=== PATIENT | male | born 1960 | race Caucasian/White ===

== ENCOUNTER 2021-04-13 12:43 | Inpatient (IN) | payer BC ==
[2021-04-13] MEDS ORDERED: methylPREDNISolone SOD SUCCI 125 MG/2 ML VIAL IV STA (12:49)
[2021-04-13] MEDS ORDERED: IPRATROPIUM-ALBUTEROL 3 ML NEB INHALATION STA (12:49)
--- NOTE | 2021-04-13 12:58 | ED ---
SOB HPI - General Stated Complaint: DAHLIA Time Seen by Provider: 04/13/21 12:46 Source: patient, RN notes reviewed - History of Present Illness Initial Comments: Is a 60-year-old male who is oxygen dependent who has a history of COPD and pulmonary fibrosis who states she's been having difficulty breathing for the past one half weeks getting progressively worse with exertional dyspnea and chest discomfort when he tries to take a deep breath. He did present to the emergency department by private vehicle. He has a cough with minimal phlegm production he denies any overt fevers chills or sweats no relief with his home medication. No other current complaints or modifying factors MD Complaint: shortness of breath - Related Data Home Medications Medication Instructions Recorded Confirmed Albuterol Sulfate [Ventolin HFA] 2 puff INHALATION RT-Q4H PRN 04/13/21 04/13/21 Benzonatate [Benzonatate Perle] 200 mg PO TID 04/13/21 04/13/21 Budesonide/Formoterol Fumarate 2 puff INHALATION RT-BID 04/13/21 04/13/21 [Symbicort 160-4.5 Mcg Inhaler] Ipratropium-Albuterol Nebulize 3 ml INHALATION RT-QID 04/13/21 04/13/21 [Duoneb 0.5 mg-3 mg/3 ml Soln] Pirfenidone [Esbriet] 801 mg PO BID 04/13/21 04/13/21 Promethaz-Cod 6.25-10 mg/5 ml 5 ml PO Q6H PRN 04/13/21 04/13/21 [Phenergan with Codeine] methylPREDNISolone [Medrol Dose See Taper PO DIRECTED 04/13/21 04/13/21 Pack] Allergies Allergy/AdvReac Type Severity Reaction Status Date / Time No Known Allergies Allergy Verified 04/13/21 13:48 Review of Systems ROS Statement: Those systems with pertinent positive or pertinent negative responses have been documented in the HPI. ROS Other: All systems not noted in ROS Statement are negative. General Exam - General Exam Comments Initial Comments: This is a well-developed well-nourished awake alert oriented times female in obvious respiratory distress General appearance: alert, anxious, in distress Head exam: Present: atraumatic, normocephalic, normal inspection Eye exam: Present: normal appearance, PERRL, EOMI. Absent: scleral icterus, conjunctival injection, periorbital swelling ENT exam: Present: normal exam, mucous membranes moist Neck exam: Present: normal inspection. Absent: tenderness, meningismus, lymphadenopathy Respiratory exam: Present: respiratory distress, wheezes, accessory muscle use, decreased breath sounds. Absent: rales, rhonchi, stridor Cardiovascular Exam: Present: normal rhythm, tachycardia, normal heart sounds. Absent: systolic murmur, diastolic murmur, rubs, gallop, clicks GI/Abdominal exam: Present: soft, normal bowel sounds. Absent: distended, tenderness, guarding, rebound, rigid External exam: Present: normal external exam Extremities exam: Present: normal inspection, full ROM, normal capillary refill. Absent: tenderness, pedal edema, joint swelling, calf tenderness Back exam: Present: normal inspection Neurological exam: Present: alert, oriented X3, CN II-XII intact Psychiatric exam: Present: anxious Skin exam: Present: warm, dry, intact, normal color. Absent: rash Course Vital Signs 04/13/21 04/13/21 04/13/21 12:49 12:50 12:59 Temperature 97.9 F Pulse Rate 120 H 90 Respiratory 36 H 36 H Rate Blood Pressure 126/88 O2 Sat by Pulse 74 L Oximetry 04/13/21 04/13/21 13:19 14:48 Temperature Pulse Rate 98 88 Respiratory 18 Rate Blood Pressure 115/83 O2 Sat by Pulse 96 Oximetry - Reevaluation(s) Reevaluation #1: 04/13/21 14:59 Reevaluation patient after initial treatment he is feeling improved BiPAP has helped tremendously. Medical Decision Making - Lab Data Result diagrams: 04/13/21 13:07 04/13/21 13:07 Lab Results 04/13/21 04/13/21 04/13/21 Range/Units 13:07 13:07 13:07 WBC 14.1 H (3.8-10.6) k/uL RBC 6.01 H (4.30-5.90) m/uL Hgb 19.5 H* (13.0-17.5) gm/dL Hct 56.9 H (39.0-53.0) % MCV 94.7 (80.0-100.0) fL MCH 32.4 (25.0-35.0) pg MCHC 34.2 (31.0-37.0) g/dL RDW 14.3 (11.5-15.5) % Plt Count 161 (150-450) k/uL MPV 8.5 Neutrophils % 75 % Lymphocytes % 15 % Monocytes % 6 % Eosinophils % 2 % Basophils % 1 % Neutrophils # 10.5 H (1.3-7.7) k/uL Lymphocytes # 2.1 (1.0-4.8) k/uL Monocytes # 0.9 (0-1.0) k/uL Eosinophils # 0.3 (0-0.7) k/uL Basophils # 0.1 (0-0.2) k/uL Sodium 138 (137-145) mmol/L Potassium 4.2 (3.5-5.1) mmol/L Chloride 105 (98-107) mmol/L Carbon Dioxide 18 L (22-30) mmol/L Anion Gap 15 mmol/L BUN 13 (9-20) mg/dL Creatinine 0.74 (0.66-1.25) mg/dL Est GFR (CKD-EPI)AfAm >90 (>60 ml/min/1.73 sqM) Est GFR (CKD-EPI)NonAf >90 (>60 ml/min/1.73 sqM) Glucose 192 H (74-99) mg/dL Plasma Lactic Acid Octavio 2.7 H* (0.7-2.0) mmol/L Calcium 9.2 (8.4-10.2) mg/dL Magnesium 2.1 (1.6-2.3) mg/dL Total Bilirubin 0.9 (0.2-1.3) mg/dL AST 37 (17-59) U/L ALT 27 (4-49) U/L Alkaline Phosphatase 104 (38-126) U/L Creatine Kinase 67 (55-170) U/L Troponin I (0.000-0.034) ng/mL NT-Pro-B Natriuret Pep pg/mL Total Protein 7.4 (6.3-8.2) g/dL Albumin 4.1 (3.5-5.0) g/dL 04/13/21 04/13/21 Range/Units 13:07 13:07 WBC (3.8-10.6) k/uL RBC (4.30-5.90) m/uL Hgb (13.0-17.5) gm/dL Hct (39.0-53.0) % MCV (80.0-100.0) fL MCH (25.0-35.0) pg MCHC (31.0-37.0) g/dL RDW (11.5-15.5) % Plt Count (150-450) k/uL MPV Neutrophils % % Lymphocytes % % Monocytes % % Eosinophils % % Basophils % % Neutrophils # (1.3-7.7) k/uL Lymphocytes # (1.0-4.8) k/uL Monocytes # (0-1.0) k/uL Eosinophils # (0-0.7) k/uL Basophils # (0-0.2) k/uL Sodium (137-145) mmol/L Potassium (3.5-5.1) mmol/L Chloride (98-107) mmol/L Carbon Dioxide (22-30) mmol/L Anion Gap mmol/L BUN (9-20) mg/dL Creatinine (0.66-1.25) mg/dL Est GFR (CKD-EPI)AfAm (>60 ml/min/1.73 sqM) Est GFR (CKD-EPI)NonAf (>60 ml/min/1.73 sqM) Glucose (74-99) mg/dL Plasma Lactic Acid Octavio (0.7-2.0) mmol/L Calcium (8.4-10.2) mg/dL Magnesium (1.6-2.3) mg/dL Total Bilirubin (0.2-1.3) mg/dL AST (17-59) U/L ALT (4-49) U/L Alkaline Phosphatase (38-126) U/L Creatine Kinase (55-170) U/L Troponin I 0.029 (0.000-0.034) ng/mL NT-Pro-B Natriuret Pep 3790 pg/mL Total Protein (6.3-8.2) g/dL Albumin (3.5-5.0) g/dL - EKG Data -: EKG Interpreted by Me EKG shows normal: sinus rhythm EKG Comments: Sinus rhythm of 89. Interval 1:30 QRS duration 88 QT since QTC 360/469 T-wave them straight nonspecific configuration prolonged QT interval. Critical Care Time Critical Care Time: Yes Total Critical Care Time: 35 Critical Care Time: Critical care time includes initial presentation with history physical labs x- rays multiple reevaluation of the patient to responsive therapy discuss with the patient family regarding findings discussed with Dr. Hayes admission orders and documentation of the above Disposition Clinical Impression: Acute exacerbation of chronic obstructive pulmonary disease, Acute respiratory distress syndrome in adult, Dehydration, Congestive heart failure Disposition: ADMITTED IP TO THIS [facility] Condition: Fair Referrals: Manjeet Frost DO [Primary Care Provider] - 1-2 days
[2021-04-13] MEDS: SODIUM CHLORIDE 0.9% 1,000 ML IV STA ×2 (13:08→17:53)
[2021-04-13] MEDS ORDERED: LORazepam 2 MG/ML INJ IV STA (13:08)
--- NOTE | 2021-04-13 13:23 | XR ---
EXAMINATION TYPE: XR chest 1V DATE OF EXAM: 04/13/2021 COMPARISON: NONE HISTORY: 60 year-old male shortness of breath, difficulty breathing TECHNIQUE: Single frontal view of the chest is obtained. FINDINGS: Loss of the subacromial space on the right. Heart borderline enlarged. Possible rounded retrocardiac lucency. Diffuse coarse interstitial opacities, more confluent along the periphery of the mid and low er lungs. No sizable effusion on the frontal view. IMPRESSION: 1. Cardiomegaly with diffuse interstitial opacities, more confluent in the periphery of the mid and lower lungs. Chronicity is unclear. Consider interstitial pulmonary edema, atypical pneumonias, and/o r pulmonary fibrosis. 2. Possible moderate-sized hiatal hernia.
[2021-04-13 13:26] LABS: Basophils # (A) 0.1 k/uL (0-0.2); Basophils % (A) 1 %; Eosinophils # (A) 0.3 k/uL (0-0.7); Eosinophils % (A) 2 %; Lymphocytes # (A) 2.1 k/uL (1.0-4.8); Lymphocytes % (A) 15 %; MCH 32.4 pg (25.0-35.0); MCHC 34.2 g/dL (31.0-37.0); MCV 94.7 fL (80.0-100.0); Mean Platelet Volume 8.5; Monocytes # (A) 0.9 k/uL (0-1.0); Monocytes % (A) 6 %; Neutrophils # (A) 10.5 k/uL (1.3-7.7); Neutrophils % (A) 75 %; Platelet Count 161 k/uL (150-450); RBC 6.01 m/uL (4.30-5.90); RDW 14.3 % (11.5-15.5); WBC 14.1 k/uL (3.8-10.6)
[2021-04-13 13:49] LABS: HCT 56.9 % (39.0-53.0)
[2021-04-13 13:51] LABS: ALT 27 U/L (4-49); AST 37 U/L (17-59); African American GFR (CKD) >90 (>60 ml/min/1.73 sqM); Albumin 4.1 g/dL (3.5-5.0); Alkaline Phosphatase 104 U/L (38-126); Anion Gap 15 mmol/L; Blood Urea Nitrogen 13 mg/dL (9-20); Calcium 9.2 mg/dL (8.4-10.2); Carbon Dioxide 18 mmol/L (22-30); Chloride 105 mmol/L (98-107); Creatine Kinase 67 U/L (55-170); Glucose 192 mg/dL (74-99); Magnesium 2.1 mg/dL (1.6-2.3); Non-African American GFR(CKD) >90 (>60 ml/min/1.73 sqM); Potassium 4.2 mmol/L (3.5-5.1); Sodium 138 mmol/L (137-145); Total Bilirubin 0.9 mg/dL (0.2-1.3); Total Protein 7.4 g/dL (6.3-8.2)
[2021-04-13 13:52] LABS: HGB 19.5 gm/dL (13.0-17.5)
[2021-04-13] MEDS ORDERED: SODIUM CHLORIDE 0.9% 1,000 ML IV STA (13:52)
[2021-04-13] MEDS ORDERED: PROMETHAZ COD PO PRN (15:04)
[2021-04-13] MEDS ORDERED: FUROSEMIDE 10 MG/ML 4 ML VIAL IV STA ×2 (15:05→20:36)
[2021-04-13] MEDS: PANTOPRAZOLE 40 MG/10 ML VIAL IVP SCH (16:00)
[2021-04-13] MEDS ORDERED: HEPARIN SODIUM,PORCINE/PF 5,000 UNIT/0.5 ML SYRINGE SQ SCH (16:00)
[2021-04-13] MEDS: LEVOFLOXACIN 750MG-D5W PMX 750 MG in DEXTROSE/WATER 1 150ML.BAG IVPB SCH (16:11)
[2021-04-13] MEDS: BENZONATATE 100 MG CAP PO SCH ×2 (16:12→20:48)
--- NOTE | 2021-04-13 16:27 | P.CNPUL ---
History of Present Illness Consult date: 04/13/21 Reason for consult: COPD, pulmonary fibrosis History of present illness: 61-year-old male patient known history of COPD and advanced pulmonary fibrosis, oxygen dependent. The patient has been followed up in our office with and he has been maintained on Esbriet to 67 mg 2 tablets 3 times a day. During an earlier evaluation evaluation on office wasn't back in December 2020. At that time, his pulse ox on room air was at 77%. He was quickly placed on oxygen. Has been using his oxygen 24 7 since. He was educated to do so. He is on oxygen 2 L per minute nasal cannula. He has been also maintained on a combination of Symbicort and Ventolin rescue inhaler on an as-needed basis. He has completed his COVID vaccination. Based on the previous port function test that was done and 01/30/2019, the patient has a FVC of 80%. His diffusion capacity was a 40% and no follow-up with function tests was done since. His most recent CAT scan of the chest was done and [facility] he showed moderate centrilobular and paraseptal emphysema and bronchiectasis in addition to interstitial pulmonary fibrosis there was moderate to severe in nature and this was done on 05/26/2020. He has other comorbidities including chronic pain and sciatica. The patient came into the emergency department this afternoon because of worsening shortness of breath and exertional dyspnea. He was having chest discomfort when he was trying to take a deep breath. He had a cough with minimal amount of sputum production. Denies having any fever or chills. He was taking all of his home medications. No swelling in lower extremities. In the emergency, he was found that her white cell count of 14.1, hemoglobin was 19.5 consistent with chronic hypoxemia and secondary erythrocytosis. His serum bicarb is at 18, the electrodes are all within normal limits, proBNP level was 3790, liver function tests were all essentially within normal limits, lactic acid level was at 0.7, chest x-ray was consistent with interstitial fibrosis, diffuse with lower lobe and peripheral predominance. Pulse ox on room air was 74%. The patient immediately was placed on a BiPAP. He was tachycardic at time of admission with a heart rate of 120 and a respiration of 36, much improved while on the BiPAP. He was hospitalized accordingly. Review of Systems Constitutional: Reports fatigue, Reports lethargy, Reports weakness Eyes: denies as per HPI, denies blurred vision, denies bulging eye, denies decr eased vision, denies diplopia, denies discharge, denies dry eye, denies irritation, denies itching, denies pain, denies photophobia, denies loss of peripheral vision, denies loss of vision, denies tunnel vision/blind spots Ears: deny: decreased hearing, ear discharge, earache, tinnitus Ears, nose, mouth and throat: Reports as per HPI Breasts: absent: as per HPI Cardiovascular: Reports decreased exercise tolerance, Reports dyspnea on exertion Respiratory: Reports cough, Reports dyspnea, Reports home oxygen, Reports wheezing Gastrointestinal: Reports as per HPI Genitourinary: Reports as per HPI Musculoskeletal: Reports as per HPI Musculoskeletal: absent: ankle pain, ankle stiffness, ankle swelling Integumentary: Reports as per HPI Neurological: Reports as per HPI, Reports weakness Psychiatric: Reports as per HPI Endocrine: Reports as per HPI Hematologic/Lymphatic: Reports as per HPI Allergic/Immunologic: Reports as per HPI Past Medical History Past Medical History: COPD Additional Past Medical History / Comment(s): pulmonary fibrosis History of Any Multi-Drug Resistant Organisms: None Reported Past Surgical History: No Surgical Hx Reported Past Psychological History: No Psychological Hx Reported Smoking Status: Current some day smoker Past Alcohol Use History: None Reported Past Drug Use History: None Reported Medications and Allergies Home Medications Medication Instructions Recorded Confirmed Type Albuterol Sulfate [Ventolin HFA] 2 puff INHALATION RT-Q4H PRN 04/13/21 04/13/21 History Benzonatate [Benzonatate Perle] 200 mg PO TID 04/13/21 04/13/21 History Budesonide/Formoterol Fumarate 2 puff INHALATION RT-BID 04/13/21 04/13/21 History [Symbicort 160-4.5 Mcg Inhaler] Ipratropium-Albuterol Nebulize 3 ml INHALATION RT-QID 04/13/21 04/13/21 History [Duoneb 0.5 mg-3 mg/3 ml Soln] Pirfenidone [Esbriet] 801 mg PO BID 04/13/21 04/13/21 History Promethaz-Cod 6.25-10 mg/5 ml 5 ml PO Q6H PRN 04/13/21 04/13/21 History [Phenergan with Codeine] methylPREDNISolone [Medrol Dose See Taper PO DIRECTED 04/13/21 04/13/21 History Pack] Allergies Allergy/AdvReac Type Severity Reaction Status Date / Time No Known Allergies Allergy Verified 04/13/21 13:48 Physical Exam Vitals: Vital Signs Temp Pulse Resp BP Pulse Ox 04/13/21 14:48 88 18 115/83 96 04/13/21 13:19 98 04/13/21 12:59 90 04/13/21 12:50 97.9 F 120 H 36 H 126/88 74 L 04/13/21 12:49 36 H Intake and Output 04/13/21 04/13/21 04/13/21 06:59 14:59 22:59 Other: Weight 103.873 kg The patient is currently in [id number] degree of respiratory distress on BiPAP for respiratory support 14/6/50% Head exam was generally normal. There was no scleral icterus or corneal arcus. M ucous membranes were moist. Neck was supple and without jugular venous distension, thyromegaly, or carotid bruits. Carotids were easily palpable bilaterally. There was no adenopathy. Examination of the lungs shows a Velcro crackles in lung bases bilaterally. The patient diminished breath sounds throughout the lung his bilaterally. There is also prolongation of the exhalation phase of breathing. Cardiac exam revealed the PMI to be normally situated and sized. The rhythm was regular and no extrasystoles were noted during several minutes of auscultation. The first and second heart sounds were normal and physiologic splitting of the second heart sound was noted. There were no murmurs, rubs, clicks, or gallops. Abdomen abdomen Abdominal exam revealed normal bowel sounds. The abdomen was soft, non-tender, and without masses, organomegaly, or appreciable enlargement of the abdominal aorta. Examination of the extremities revealed easily palpable radial, femoral and pedal pulses. There was no cyanosis, or edema. Clubbing of fingernails noted Examination of the skin revealed no evidence of significant rashes, suspicious appearing nevi or other concerning lesions. Neurologically, the patient is awake and alert and the patient does not have any focal neurological deficit. Cranial nerves are essentially intact. Results - Laboratory Findings CBC and BMP: 04/13/21 13:07 04/13/21 13:07 Abnormal lab findings: Abnormal Labs 04/13/21 04/13/21 04/13/21 13:07 13:07 13:07 WBC 14.1 H RBC 6.01 H Hgb 19.5 H* Hct 56.9 H Neutrophils # 10.5 H Carbon Dioxide 18 L Glucose 192 H Plasma Lactic Acid Octavio 2.7 H* - Diagnostic Findings Chest x-ray: report reviewed, image reviewed Additional studies: EKG reviewed Assessment and Plan Plan: Assessment: #1. Acute on chronic dyspnea and hypoxia, rule out possibility of PE, rule out possibility of pneumonia or pulm. fibrosis exac #2. Pulmonary fibrosis, recently progressed #3. Chronic hypoxic respiratory failure related to COPD and pulmonary fibrosis #4. Mild lactic acidodisis, rule out sepsis #5. Former smoker, in remission for 3 years #6. Completed vaccination for COVID 19 Plan Continue Bi-Pap support Will add Levaquin 750 IVPB daily Continue steroids and breathing treatments Hold Esbriet right now Obtain CTA chest to rule out PE Plan with discussed with patient and his Code status discussed - patient made it clear he wants no aggressive life support treatment, no CPR, no intubation or defibrillation KENNETH/DVT prophylaxis salvage determiner prognosis is poor Time with Patient: Greater than 30
[2021-04-13] MEDS: SODIUM CHLORIDE 0.9% 1,000 ML IV SCH (17:53)
[2021-04-13] MEDS: methylPREDNISolone SOD SUCCI 125 MG/2 ML VIAL IV SCH ×2 (17:55→23:25)
[2021-04-13] MEDS: IPRATROPIUM-ALBUTEROL 3 ML NEB INHALATION SCH (19:19)
--- NOTE | 2021-04-13 20:48 | CT ---
EXAMINATION TYPE: CT angio chest DATE OF EXAM: 04/13/2021 5:02 PM COMPARISON: Same-day radiograph. HISTORY: Shortness of breath. CT DLP: 657.9 mGycm Automated exposure control for dose reduction was used. CONTRAST: CTA scan of the thorax is performed with IV Contrast, patient injected with 100 mL of Isovue 370, pul monary embolism protocol. MIP images are created and reviewed. FINDINGS: LUNGS: There is diffuse moderate interstitial opacities predominantly in the mid to lower lungs. Ther e is associated upper lobe predominant honeycombing. There is no pleural effusion or pneumothorax s een. The tracheobronchial tree is patent. MEDIASTINUM: There is satisfactory enhancement of the pulmonary artery and its branches. There are mu ltiple filling defects within the right lower lobe pulmonary artery segmental subsegmental branches, consistent with emboli. There are no greater than 1 cm hilar or mediastinal lymph nodes. No perica rdial effusion is seen. OTHER: No additional significant abnormality is seen. IMPRESSION: ACUTE PE INVOLVING THE RIGHT LOWER LOBE SEGMENTAL SUBSEGMENTAL BRANCHES. DIFFUSE INTERSTITIAL OPACITIES, MAY REPRESENT ACUTE ON CHRONIC DISEASE. Findings were reported to patient's RN by me at time of dictation.
[2021-04-13] MEDS ORDERED: HEPARIN SODIUM 1,000 UN/ML (10ML VL) IV ONE (20:53)
[2021-04-13] MEDS ORDERED: HEPARIN SODIUM 1,000 UN/ML (10ML VL) IV PRN (20:53)
[2021-04-13] MEDS: HEPARIN SOD,PORK IN 0.45% NACL 25,000 UNIT in 0.45% NACL 1 250ML.BAG IV SCH (21:14)
[2021-04-13 21:38] LABS: INR 1.2 (<1.2); Partial Thromboplastin Time 24.7 sec (22.0-30.0); Prothrombin Time 12.4 sec (9.0-12.0)
[2021-04-13] MEDS: ALPRAZolam 0.5 MG TAB PO PRN (21:57)
--- NOTE | 2021-04-13 23:29 | P.HPIM ---
History of Present Illness H&P Date: 04/13/21 Chief Complaint: Shortness of breath Patient is a 60-year-old male with a known history of COPD, pulmonary fibrosis, chronic hypoxic respiratory failure on oxygen at 2 L via nasal cannula presents to ER with the complaints of worsening shortness of breath. According to his patient did have cough spell which usually improves but today afternoon patient became more short of breath and pulse ox was 77% given it 5 L of oxygen via nasal cannula. Patient was brought to ER. Patient is also having chest tightness/discomfort when trying to take deep breath. Cough without sputum production. No fever no chills. Patient does have nebulizer and CPAP at home. On admission patient was tachycardic tachypneic and his pulse ox 74% on room air. Patient was placed on BiPAP in the ER. Chest x-ray showed cardiomegaly with diffuse interstitial opacities more confluent in the periphery of the mid and lower lungs. Chronicity is unclear. Consider interstitial pulmonary edema, atypical pneumonia and/or pulmonary fibrosis. Possible moderate sized hiatal hernia. EKG showed normal sinus rhythm. Chest CTA showed acute PE involving the right lower lobe segmental subsegmental bronchial branches. Diffuse interstitial opacities may represent acute on chronic disease. Laboratory data showed WBC 14.1 hemoglobin 19.5 and platelets 161 BUN 13 and creatinine 0.74 lactic acid 2.7 and proBNP 3790 and procalcitonin level is 0.1 Review of Systems Complete review of systems could not be obtained from the patient Except as per HPI. Patient is currently on BiPAP.. Past Medical History Past Medical History: COPD Additional Past Medical History / Comment(s): pulmonary fibrosis History of Any Multi-Drug Resistant Organisms: None Reported Past Surgical History: No Surgical Hx Reported Past Psychological History: No Psychological Hx Reported Smoking Status: Current some day smoker Past Alcohol Use History: None Reported Past Drug Use History: None Reported Medications and Allergies Home Medications Medication Instructions Recorded Confirmed Type Albuterol Sulfate [Ventolin HFA] 2 puff INHALATION RT-Q4H PRN 04/13/21 04/13/21 History Benzonatate [Benzonatate Perle] 200 mg PO TID 04/13/21 04/13/21 History Budesonide/Formoterol Fumarate 2 puff INHALATION RT-BID 04/13/21 04/13/21 History [Symbicort 160-4.5 Mcg Inhaler] Ipratropium-Albuterol Nebulize 3 ml INHALATION RT-QID 04/13/21 04/13/21 History [Duoneb 0.5 mg-3 mg/3 ml Soln] Pirfenidone [Esbriet] 801 mg PO BID 04/13/21 04/13/21 History Promethaz-Cod 6.25-10 mg/5 ml 5 ml PO Q6H PRN 04/13/21 04/13/21 History [Phenergan with Codeine] methylPREDNISolone [Medrol Dose See Taper PO DIRECTED 04/13/21 04/13/21 History Pack] Allergies Allergy/AdvReac Type Severity Reaction Status Date / Time No Known Allergies Allergy Verified 04/13/21 13:48 Physical Exam Vitals: Vital Signs Temp Pulse Pulse Resp BP BP Pulse Ox 04/13/21 19:22 68 04/13/21 18:01 23 04/13/21 17:27 98 F 69 16 94/72 92 L 04/13/21 16:00 98 F 87 16 104/72 04/13/21 15:57 69 28 H 94/72 92 L 04/13/21 14:48 88 18 115/83 96 04/13/21 13:19 98 04/13/21 12:59 90 04/13/21 12:50 97.9 F 120 H 36 H 126/88 74 L 04/13/21 12:49 36 H Intake and Output 04/13/21 04/13/21 04/13/21 06:59 14:59 22:59 Other: Weight 103.873 kg 103.873 kg PHYSICAL EXAMINATION: Patient is lying in the bed comfortably, no acute distress, awake alert and oriented.. HEENT: Normocephalic. Neck is supple. Pupils reactive. Nostrils clear. Oral cavity is moist. Neck reveals no JVD, carotid bruits, or thyromegaly. CHEST EXAMINATION: Trachea is central. Symmetrical expansion. Bilateral diminished air entry. Scattered rhonchi. Labored breathing and using accessory muscles.. CARDIAC: Normal S1, S2 with no gallops. No murmurs ABDOMEN: Soft. Bowel sounds normal. No organomegaly. No abdominal bruits. Extremities: reveal no edema. No clubbing or cyanosis Neurologically awake, alert, oriented, with well-coordinated movements. No focal deficits noted Skin: No rash or skin lesions. Psychiatric: Coperative. Musculoskeletal: No joint swelling or deformity. Normal range of motion. Results CBC & Chem 7: 04/13/21 13:07 04/13/21 13:07 Labs: Abnormal Lab Results - Last 24 Hours (Table) 04/13/21 04/13/21 04/13/21 Range/Units 13:07 13:07 13:07 WBC 14.1 H (3.8-10.6) k/uL RBC 6.01 H (4.30-5.90) m/uL Hgb 19.5 H* (13.0-17.5) gm/dL Hct 56.9 H (39.0-53.0) % Neutrophils # 10.5 H (1.3-7.7) k/uL Carbon Dioxide 18 L (22-30) mmol/L Glucose 192 H (74-99) mg/dL Plasma Lactic Acid Octavio 2.7 H* (0.7-2.0) mmol/L Thrombosis Risk Factor Assmnt - DVT/VTE Prophylaxis DVT/VTE Prophylaxis: Pharmacologic Prophylaxis ordered - Choose All That Apply Any of the Below Risk Factors Present?: Yes Each Factor Represents 1 point: Abnormal pulmonary function (COPD) Other Risk Factors: No Thrombosis Risk Factor Assessment Total Risk Factor Score: 1 Thrombosis Risk Factor Assessment Level: Low Risk Assessment and Plan Assessment: Acute on chronic hypoxic respiratory failure is due to multifactorial etiology. Acute PE involving the right lower lobe segmental and subsegmental branches. Acute COPD exacerbation Possible pneumonia with underlying pulmonary fibrosis Chronic hypoxic respiratory failure secondary to COPD and pulmonary fibrosis Lactic acidosis due to hypoxia Previous history of smoking GI prophylaxis Plan: Patient is currently BiPAP. Continue with Solu-Medrol and duo nebs. Advised the home of [facility]. Patient was started on heparin drip and monitor respiratory status closely. Pulmonary is on board. Continue to follow closely. Discussed with with his in detail. Time with Patient: Greater than 30
[2021-04-14] MEDS: SODIUM CHLORIDE 0.9% 1,000 ML IV SCH ×3 (01:10→12:23)
[2021-04-14 04:05] LABS: Basophils % (A) 0 %; Eosinophils % (A) 0 %; HCT 50.2 % (39.0-53.0); HGB 17.1 gm/dL (13.0-17.5); Lymphocytes % (A) 8 %; MCH 32.1 pg (25.0-35.0); MCHC 33.9 g/dL (31.0-37.0); MCV 94.5 fL (80.0-100.0); Mean Platelet Volume 8.7; Monocytes # (A) 0.5 k/uL (0-1.0); Monocytes % (A) 4 %; Neutrophils # (A) 10.2 k/uL (1.3-7.7); Neutrophils % (A) 87 %; Platelet Count 170 k/uL (150-450); RBC 5.32 m/uL (4.30-5.90); RDW 14.3 % (11.5-15.5); WBC 11.8 k/uL (3.8-10.6)
[2021-04-14] MEDS: methylPREDNISolone SOD SUCCI 125 MG/2 ML VIAL IV SCH ×4 (05:37→23:09)
[2021-04-14 06:05] LABS: Glucose,Whole Blood 222 mg/dL (75-99)
[2021-04-14] MEDS: INSULIN ASPART (NovoLOG) 100 UNIT/ML VIAL SQ SCH ×4 (06:08→20:39)
[2021-04-14] MEDS: PANTOPRAZOLE 40 MG/10 ML VIAL IVP SCH (08:27)
[2021-04-14] MEDS: BENZONATATE 100 MG CAP PO SCH ×3 (08:28→20:38)
[2021-04-14] MEDS: HEPARIN SOD,PORK IN 0.45% NACL 25,000 UNIT in 0.45% NACL 1 250ML.BAG IV SCH ×2 (08:35→12:10)
[2021-04-14] MEDS: IPRATROPIUM-ALBUTEROL 3 ML NEB INHALATION SCH ×3 (08:57→20:28)
[2021-04-14 12:19] LABS: Glucose,Whole Blood 205 mg/dL (75-99)
--- NOTE | 2021-04-14 13:12 | P.PN ---
Subjective Progress Note Date: 04/14/21 61-year-old male patient known history of COPD and advanced pulmonary fibrosis, oxygen dependent. The patient has been followed up in our office with and he has been maintained on Esbriet to 67 mg 2 tablets 3 times a day. During an earlier evaluation evaluation on office wasn't back in December 2020. At that time, his pulse ox on room air was at 77%. He was quickly placed on oxygen. Has been using his oxygen 24 7 since. He was educated to do so. He is on oxygen 2 L per minute nasal cannula. He has been also maintained on a combination of Symbicort and Ventolin rescue inhaler on an as-needed basis. He has completed his COVID vaccination. Based on the previous port function test that was done and 01/30/2019, the patient has a FVC of 80%. His diffusion capacity was a 40% and no follow-up with function tests was done since. His most recent CAT scan of the chest was done and [facility] he showed moderate centrilobular and paraseptal emphysema and bronchiectasis in addition to interstitial pulmonary fibrosis there was moderate to severe in nature and this was done on 05/26/2020. He has other comorbidities including chronic pain and sciatica. The patient came into the emergency department this afternoon because of worsening shortness of breath and exertional dyspnea. He was having chest discomfort when he was trying to take a deep breath. He had a cough with minimal amount of sputum production. Denies having any fever or chills. He was taking all of his home medications. No swelling in lower extremities. In the emergency, he was found that her white cell count of 14.1, hemoglobin was 19.5 consistent with chronic hypoxemia and secondary erythrocytosis. His serum bicarb is at 18, the electrodes are all within normal limits, proBNP level was 3790, liver function tests were all essentially within normal limits, lactic acid level was at 0.7, chest x-ray was consistent with interstitial fibrosis, diffuse with lower lobe and peripheral predominance. Pulse ox on room air was 74%. The patient immediately was placed on a BiPAP. He was tachycardic at time of admission with a heart rate of 120 and a respiration of 36, much improved while on the BiPAP. He was hospitalized accordingly. On today's evaluation patient is seen on selective care unit, he appears to be still quite dyspneic, however improved from yesterday's exam, he is off BiPAP support, and he is currently on 6 L of oxygen, with a pulse ox of 84-89%. he tolerates and off BiPAP support briefly and for meals, however returns to BiPAP support tolerates it quite well. His CTA chest showed evidence of pulmonary embolism in the right lower lobe, segmental and subsegmental branches. Diffuse interstitial opacities, that could represent acute on chronic disease. Patient continues on IV steroids, nebulized bronchodilators, and empiric antibiotics. No fever or chills overnight. Right-sided chest discomfort is subsided. There has been no hemoptysis, no lower extremity swelling Objective - Vital Signs Vital signs: Vital Signs Temp 97.7 F 04/14/21 07:54 Pulse 88 04/14/21 12:55 Resp 26 H 04/14/21 12:40 BP 109/77 04/14/21 11:09 Pulse Ox 84 L 04/14/21 11:10 Intake & Output 04/13/21 04/14/21 04/14/21 18:59 06:59 18:59 Intake Total 136.488 358.935 Output Total 1275 Balance -1138.512 358.935 Weight 103.873 kg 96.5 kg Intake: Intake, IV Titration 136.488 118.935 Amount Heparin Sod,Pork in 0.45% 136.488 118.935 NaCl 25,000 unit In 0.45 % NaCl 1 250ml.bag @ 18 UNITS/KG/HR 18.697 mls/hr IV .[id number] [facility] Rx#: [id number] Oral 240 Output: Urine 1275 Other: # Voids 1 2 - Exam GENERAL EXAM: Alert, active, 60-year-old white male, dyspneic at rest, cu rrently on 6 L of oxygen, patient to wear his BiPAP most of the time comfortable in no apparent distress. HEAD: Normocephalic/atraumatic. EYES: Normal reaction of pupils, equal size. Conjunctiva pink, sclera white. NOSE: Clear with pink turbinates. THROAT: No erythema or exudates. NECK: No masses, no JVD, no thyroid enlargement, no adenopathy. CHEST: No chest wall deformity. Symmetrical expansion. LUNGS: Equal air entry with diffuse crackles at bilateral bases CVS: Regular rate and rhythm, normal S1 and S2, no gallops, no murmurs, no rubs ABDOMEN: Soft, nontender. No hepatosplenomegaly, normal bowel sounds, no guarding or rigidity. EXTREMITIES: No clubbing, no edema, no cyanosis, 2+ pulses and upper and lower extremities. MUSCULOSKELETAL: Muscle strength and tone normal. SPINE: No scoliosis or deformity SKIN: No rashes CENTRAL NERVOUS SYSTEM: Alert and oriented -3. No focal deficits, tone is normal in all 4 extremities. PSYCHIATRIC: Alert and oriented -3. Appropriate affect. Intact judgment and insight. - Labs CBC & Chem 7: 04/14/21 03:30 04/13/21 13:07 Labs: Abnormal Lab Results - Last 24 Hours (Table) 04/13/21 04/13/21 04/13/21 Range/Units 13:07 13:07 13:07 WBC 14.1 H (3.8-10.6) k/uL RBC 6.01 H (4.30-5.90) m/uL Hgb 19.5 H* (13.0-17.5) gm/dL Hct 56.9 H (39.0-53.0) % Neutrophils # 10.5 H (1.3-7.7) k/uL PT (9.0-12.0) sec INR (<1.2) APTT (22.0-30.0) sec Carbon Dioxide 18 L (22-30) mmol/L Glucose 192 H (74-99) mg/dL POC Glucose (mg/dL) (75-99) mg/dL Plasma Lactic Acid Octavio 2.7 H* (0.7-2.0) mmol/L Procalcitonin (0.02-0.09) ng/mL 04/13/21 04/13/21 04/14/21 Range/Units 13:07 21:18 03:30 WBC (3.8-10.6) k/uL RBC (4.30-5.90) m/uL Hgb (13.0-17.5) gm/dL Hct (39.0-53.0) % Neutrophils # (1.3-7.7) k/uL PT 12.4 H (9.0-12.0) sec INR 1.2 H (<1.2) APTT >200.0 H* (22.0-30.0) sec Carbon Dioxide (22-30) mmol/L Glucose (74-99) mg/dL POC Glucose (mg/dL) (75-99) mg/dL Plasma Lactic Acid Octavio (0.7-2.0) mmol/L Procalcitonin 0.10 H (0.02-0.09) ng/mL 04/14/21 04/14/21 04/14/21 Range/Units 03:30 06:03 11:18 WBC 11.8 H (3.8-10.6) k/uL RBC (4.30-5.90) m/uL Hgb (13.0-17.5) gm/dL Hct (39.0-53.0) % Neutrophils # 10.2 H (1.3-7.7) k/uL PT (9.0-12.0) sec INR (<1.2) APTT 60.2 H (22.0-30.0) sec Carbon Dioxide (22-30) mmol/L Glucose (74-99) mg/dL POC Glucose (mg/dL) 222 H (75-99) mg/dL Plasma Lactic Acid Octavio (0.7-2.0) mmol/L Procalcitonin (0.02-0.09) ng/mL 04/14/21 Range/Units 12:11 WBC (3.8-10.6) k/uL RBC (4.30-5.90) m/uL Hgb (13.0-17.5) gm/dL Hct (39.0-53.0) % Neutrophils # (1.3-7.7) k/uL PT (9.0-12.0) sec INR (<1.2) APTT (22.0-30.0) sec Carbon Dioxide (22-30) mmol/L Glucose (74-99) mg/dL POC Glucose (mg/dL) 205 H (75-99) mg/dL Plasma Lactic Acid Octavio (0.7-2.0) mmol/L Procalcitonin (0.02-0.09) ng/mL Assessment and Plan Plan: Assessment: #1. Acute on chronic dyspnea and hypoxia, related to acute embolism, CTA chest showed segmental and subsegmental filling defects in the right lower lobe, pro- calcitonin level was negative at 0.10. #2. Pulmonary fibrosis, recently progressed #3. Chronic hypoxic respiratory failure related to COPD and pulmonary fibrosis #4. Mild lactic acidodisis, rule out sepsis #5. Former smoker, in remission for 3 years #6. Completed vaccination for COVID 19 or graft plan: Plan: Continue heparin infusion Obtain lower extremity Dopplers Echocardiogram We will send a prescription down to pharmacy for Eliquis or Xarelto Check agents coverage for the DOAC Continue IV steroids, antibiotics and breathing treatments Continue BiPAP support Overall prognosis is poor We discussed the patient's prognosis, and recent progression of his pulmonary fibrosis yesterday Patient does not want a lung transplant Patient wants no aggressive treatment Patient does not want to be intubated CODE STATUS is DO NOT RESUSCITATE We'll continue to follow I performed a history & physical examination of the patient and discussed their management with my nurse practitioner, Maryse Becerra. I reviewed the nurse practitioner's note and agree with the documented findings and plan of care. Lung sounds are positive for diffuse rales The findings and the impression was discussed with the patient. I attest to the documentation by the nurse practitioner. Time with Patient: Less than 30
--- NOTE | 2021-04-14 14:25 | P.PN ---
Subjective Progress Note Date: 04/14/21 Patient is a 60-year-old male with a known history of COPD, pulmonary fibrosis, chronic hypoxic respiratory failure on oxygen at 2 L via nasal cannula presents to ER with the complaints of worsening shortness of breath. According to his patient did have cough spell which usually improves but today afternoon patient became more short of breath and pulse ox was 77% given it 5 L of oxygen via nasal cannula. Patient was brought to ER. Patient is also having chest tightness/discomfort when trying to take deep breath. Cough without sputum production. No fever no chills. Patient does have nebulizer and CPAP at home. On admission patient was tachycardic tachypneic and his pulse ox 74% on room air. Patient was placed on BiPAP in the ER. Chest x-ray showed cardiomegaly with diffuse interstitial opacities more confluent in the periphery of the mid and lower lungs. Chronicity is unclear. Consider interstitial pulmonary edema, atypical pneumonia and/or pulmonary fibrosis. Possible moderate sized hiatal hernia. EKG showed normal sinus rhythm. Chest CTA showed acute PE involving the right lower lobe segmental subsegmental bronchial branches. Diffuse interstitial opacities may represent acute on chronic disease. Laboratory data showed WBC 14.1 hemoglobin 19.5 and platelets 161 BUN 13 and creatinine 0.74 lactic acid 2.7 and proBNP 3790 and procalcitonin level is 0.1 04/14/2021 Patient seen and evaluated in follow-up this morning continues to have difficulty in breathing and extremely dyspneic with minimal exertion and is becoming extremely anxious and lower oxygen saturations of 84% on 6 L nasal cannula and was placed back on BiPAP per nursing staff. Pulmonary following antonio sely. Patient did undergo chest CTA which showed a pulmonary embolism and was started on IV heparin and will continue for now. Eliquis prescription was sent to the pharmacy to verify coverage in case management made aware. White blood count slightly improved at 11.8, hemoglobin is 17.1. Patient is continued on breathing inhalational treatments along with IV Levaquin and IV steroids and will continue at this time. Patient was given a dose of IV Lasix last night with some improvement in breathing. Review of systems: Constitutional: No reports of fatigue, fever, or chills, reports anxiousness Cardiovascular: No reports of chest pain or palpitations Respiratory: reports of shortness of breath GI: No reports of nausea, vomiting, or diarrhea : No reports of dysuria or retention Neurovascular: No reports of weakness or numbness All medications have been reviewed Objective - Vital Signs Vital signs: Vital Signs Temp 97.7 F 04/14/21 07:54 Pulse 76 04/14/21 09:12 Resp 25 H 04/14/21 07:54 BP 98/66 04/14/21 07:54 Pulse Ox 90 L 04/14/21 07:54 Intake & Output 04/13/21 04/14/21 04/14/21 18:59 06:59 18:59 Intake Total 136.488 303.103 Output Total 1275 Balance -1138.512 303.103 Weight 103.873 kg 96.5 kg Intake: Intake, IV Titration 136.488 63.103 Amount Heparin Sod,Pork in 0.45% 136.488 63.103 NaCl 25,000 unit In 0.45 % NaCl 1 250ml.bag @ 18 UNITS/KG/HR 18.697 mls/hr IV .[id number] [facility] Rx#: [id number] Oral 240 Output: Urine 1275 Other: # Voids 1 - Exam Patient is sitting up in the bed slightly anxious, awake alert and oriented.. HEENT: Normocephalic. Neck is supple. Pupils reactive. Nostrils clear. Oral cavity is moist. Neck reveals no JVD, carotid bruits, or thyromegaly. CHEST EXAMINATION: Trachea is central. Symmetrical expansion. Bilateral d iminished air entry. Scattered rhonchi. tachypneic CARDIAC: Normal S1, S2 with no gallops. No murmurs ABDOMEN: Soft. Bowel sounds normal. No organomegaly. No abdominal bruits. Extremities: reveal no edema. No clubbing or cyanosis Neurologically awake, alert, oriented, with well-coordinated movements. No focal deficits noted Skin: No rash or skin lesions. Psychiatric: Cooperative. Musculoskeletal: No joint swelling or deformity. Normal range of motion. - Labs CBC & Chem 7: 04/14/21 03:30 04/13/21 13:07 Labs: Abnormal Lab Results - Last 24 Hours (Table) 04/13/21 04/13/21 04/13/21 Range/Units 13:07 13:07 13:07 WBC 14.1 H (3.8-10.6) k/uL RBC 6.01 H (4.30-5.90) m/uL Hgb 19.5 H* (13.0-17.5) gm/dL Hct 56.9 H (39.0-53.0) % Neutrophils # 10.5 H (1.3-7.7) k/uL PT (9.0-12.0) sec INR (<1.2) APTT (22.0-30.0) sec Carbon Dioxide 18 L (22-30) mmol/L Glucose 192 H (74-99) mg/dL POC Glucose (mg/dL) (75-99) mg/dL Plasma Lactic Acid Octavio 2.7 H* (0.7-2.0) mmol/L Procalcitonin (0.02-0.09) ng/mL 04/13/21 04/13/21 04/14/21 Range/Units 13:07 21:18 03:30 WBC (3.8-10.6) k/uL RBC (4.30-5.90) m/uL Hgb (13.0-17.5) gm/dL Hct (39.0-53.0) % Neutrophils # (1.3-7.7) k/uL PT 12.4 H (9.0-12.0) sec INR 1.2 H (<1.2) APTT >200.0 H* (22.0-30.0) sec Carbon Dioxide (22-30) mmol/L Glucose (74-99) mg/dL POC Glucose (mg/dL) (75-99) mg/dL Plasma Lactic Acid Octavio (0.7-2.0) mmol/L Procalcitonin 0.10 H (0.02-0.09) ng/mL 04/14/21 04/14/21 Range/Units 03:30 06:03 WBC 11.8 H (3.8-10.6) k/uL RBC (4.30-5.90) m/uL Hgb (13.0-17.5) gm/dL Hct (39.0-53.0) % Neutrophils # 10.2 H (1.3-7.7) k/uL PT (9.0-12.0) sec INR (<1.2) APTT (22.0-30.0) sec Carbon Dioxide (22-30) mmol/L Glucose (74-99) mg/dL POC Glucose (mg/dL) 222 H (75-99) mg/dL Plasma Lactic Acid Octavio (0.7-2.0) mmol/L Procalcitonin (0.02-0.09) ng/mL Assessment and Plan Assessment: Acute on chronic hypoxic respiratory failure is due to multifactorial etiology. Acute PE involving the right lower lobe segmental and subsegmental branches. IV heparin monitoring Acute COPD exacerbation Possible pneumonia with underlying pulmonary fibrosis Chronic hypoxic respiratory failure secondary to COPD and pulmonary fibrosis Lactic acidosis due to hypoxia Previous history of smoking GI prophylaxis DVT prophylaxis: Currently on IV heparin No code Plan: Patient is currently being placed back on BiPAP with low oxygen saturations in the 80s on 6 L via nasal cannula. Pulmonary following closely. Continue with Solu-Medrol and duo nebs. Prescription was sent to the pharmacy to verify anticoagulation coverage as he will likely need this on discharge. Patient cont inues on IV heparin drip and monitor respiratory status closely. Continue to follow closely. Will repeat a.m. labs. Due to multiple complex medical issues, prognosis is guarded.
[2021-04-14] MEDS: LEVOFLOXACIN 750MG-D5W PMX 750 MG in DEXTROSE/WATER 1 150ML.BAG IVPB SCH (15:47)
[2021-04-14] MEDS: APIXABAN 5 MG TAB PO SCH ×2 (15:48→20:38)
[2021-04-14 16:44] LABS: Glucose,Whole Blood 226 mg/dL (75-99)
--- NOTE | 2021-04-14 17:12 | US ---
EXAMINATION TYPE: US venous doppler duplex LE DATE OF EXAM: 04/14/2021 2:12 PM COMPARISON: NONE CLINICAL HISTORY: 60-year-old male acute pulmonary embolism. PE SIDE PERFORMED: Bilateral TECHNIQUE: The lower extremity deep venous system is examined utilizing real time linear array sonog aimee with graded compression, doppler sonography and color-flow sonography. FINDINGS: VESSELS IMAGED: Common Femoral Vein Deep Femoral Vein Greater Saphenous Vein * Femoral Vein Popliteal Vein Small Saphenous Vein * Proximal Calf Veins (* superficial vessels) Right Leg: Positive for DVT Femoral Vein and Popliteal Vein. Left Leg: Negative for DVT IMPRESSION: 1. Exam positive for right lower extremity DVT involving the femoral and popliteal vein. This appears occlusive/acute. 2. No evidence for DVT within the left lower extremity imaged from the groin to the upper calf.
--- NOTE | 2021-04-14 18:00 | ECHOF ---
Referral Reason:acute pulmonary embolism MEASUREMENTS -------- HEIGHT: 177.8 cm WEIGHT: 96.2 kg BP: 109/77 RVIDd: 4.5 cm (< 3.3) IVSd: 1.1 cm (0.6 - 1.1) LVIDd: 5.2 cm (3.9 - 5.3) LVPWd: 1.2 cm (0.6 - 1.1) IVSs: 1.9 cm LVIDs: 3.2 cm LVPWs: 1.2 cm LAESV Index (A-L): 18.06 ml/m Ao Diam: 3.5 cm (2.0 - 3.7) AV Cusp: 2.2 cm (1.5 - 2.6) LA Diam: 3.9 cm (2.7 - 3.8) MV EXCURSION: 17.874 mm (> 18.000) MV EF SLOPE: 42 mm/s (70 - 150) EPSS: 0.7 cm MV E Yandel: 0.51 m/s MV DecT: 213 ms MV A Yandel: 0.69 m/s MV E/A Ratio: 0.74 RAP: 5.00 mmHg RVSP: 94.87 mmHg TAPSE: 25.23 mm FINDINGS -------- Sinus rhythm. This was a technically difficult study with suboptimal apical views. The left ventricular size is normal. There is mild concentric left ventricular hypertrophy. Overa ll left ventricular systolic function is normal with, an EF between 55 - 60 %. The right ventricle is severely enlarged. The right ventricular systolic function is moderately imp aired. Normal LA size by volume 22+/-6 ml/m2. The right atrium is mildly enlarged. 5.0mg of Lumason was utilized for enhancement of images Interatrial and interventricular septum intact. There is no evidence of aortic regurgitation. There is no evidence of aortic stenosis. No mitral regurgitation. Severe tricuspid regurgitation present. There is severe pulmonary hypertension. The right ventric ular systolic pressure, as measured by Doppler, is 94.87mmHg. There is no pulmonic regurgitation present. The aortic root size is normal. IVC Not well visulized. There is no pericardial effusion. CONCLUSIONS -------- 1. The left ventricular size is normal. 2. There is mild concentric left ventricular hypertrophy. 3. Overall left ventricular systolic function is normal with, an EF between 55 - 60 %. 4. The right ventricle is severely enlarged. 5. The right ventricular systolic function is moderately impaired. 6. The right atrium is mildly enlarged. 7. Severe tricuspid regurgitation present. 8. There is severe pulmonary hypertension. 9. The right ventricular systolic pressure, as measured by Doppler, is 94.87mmHg. CHIEF AIRPORT GUIDE: Marly Bagley RDCS
[2021-04-14 20:31] LABS: Glucose,Whole Blood 258 mg/dL (75-99)
[2021-04-14] MEDS: ALPRAZolam 0.5 MG TAB PO PRN (20:38)
[2021-04-15 06:02] LABS: Glucose,Whole Blood 219 mg/dL (75-99)
[2021-04-15] MEDS: methylPREDNISolone SOD SUCCI 125 MG/2 ML VIAL IV SCH ×4 (06:12→22:54)
[2021-04-15] MEDS: INSULIN ASPART (NovoLOG) 100 UNIT/ML VIAL SQ SCH ×4 (06:12→20:27)
[2021-04-15] MEDS: IPRATROPIUM-ALBUTEROL 3 ML NEB INHALATION SCH ×3 (07:13→19:13)
[2021-04-15] MEDS: PANTOPRAZOLE 40 MG/10 ML VIAL IVP SCH (07:55)
[2021-04-15] MEDS: BENZONATATE 100 MG CAP PO SCH ×3 (07:55→20:27)
[2021-04-15] MEDS: APIXABAN 5 MG TAB PO SCH ×2 (07:55→20:27)
[2021-04-15 10:49] LABS: Basophils % (A) 0 %; Eosinophils % (A) 0 %; HCT 49.4 % (39.0-53.0); HGB 16.7 gm/dL (13.0-17.5); Lymphocytes # (A) 0.6 k/uL (1.0-4.8); Lymphocytes % (A) 4 %; MCH 32.2 pg (25.0-35.0); MCHC 33.8 g/dL (31.0-37.0); MCV 95.3 fL (80.0-100.0); Mean Platelet Volume 8.9; Monocytes # (A) 0.6 k/uL (0-1.0); Monocytes % (A) 4 %; Neutrophils % (A) 91 %; Platelet Count 200 k/uL (150-450); RBC 5.18 m/uL (4.30-5.90); RDW 14.3 % (11.5-15.5); WBC 14.4 k/uL (3.8-10.6)
[2021-04-15 11:00] LABS: African American GFR (CKD) >90 (>60 ml/min/1.73 sqM); Anion Gap 11 mmol/L; Blood Urea Nitrogen 20 mg/dL (9-20); Calcium 8.4 mg/dL (8.4-10.2); Carbon Dioxide 21 mmol/L (22-30); Chloride 101 mmol/L (98-107); Glucose 360 mg/dL (74-99); Non-African American GFR(CKD) >90 (>60 ml/min/1.73 sqM); Potassium 4.5 mmol/L (3.5-5.1); Sodium 133 mmol/L (137-145)
--- NOTE | 2021-04-15 11:17 | P.PN ---
Subjective Progress Note Date: 04/15/21 61-year-old male patient known history of COPD and advanced pulmonary fibrosis, oxygen dependent. The patient has been followed up in our office with and he has been maintained on Esbriet to 67 mg 2 tablets 3 times a day. During an earlier evaluation evaluation on office wasn't back in December 2020. At that time, his pulse ox on room air was at 77%. He was quickly placed on oxygen. Has been using his oxygen 24 7 since. He was educated to do so. He is on oxygen 2 L per minute nasal cannula. He has been also maintained on a combination of Symbicort and Ventolin rescue inhaler on an as-needed basis. He has completed his COVID vaccination. Based on the previous port function test that was done and 01/30/2019, the patient has a FVC of 80%. His diffusion capacity was a 40% and no follow-up with function tests was done since. His most recent CAT scan of the chest was done and [facility] he showed moderate centrilobular and paraseptal emphysema and bronchiectasis in addition to interstitial pulmonary fibrosis there was moderate to severe in nature and this was done on 05/26/2020. He has other comorbidities including chronic pain and sciatica. The patient came into the emergency department this afternoon because of worsening shortness of breath and exertional dyspnea. He was having chest discomfort when he was trying to take a deep breath. He had a cough with minimal amount of sputum production. Denies having any fever or chills. He was taking all of his home medications. No swelling in lower extremities. In the emergency, he was found that her white cell count of 14.1, hemoglobin was 19.5 consistent with chronic hypoxemia and secondary erythrocytosis. His serum bicarb is at 18, the electrodes are all within normal limits, proBNP level was 3790, liver function tests were all essentially within normal limits, lactic acid level was at 0.7, chest x-ray was consistent with interstitial fibrosis, diffuse with lower lobe and peripheral predominance. Pulse ox on room air was 74%. The patient immediately was placed on a BiPAP. He was tachycardic at time of admission with a heart rate of 120 and a respiration of 36, much improved while on the BiPAP. He was hospitalized accordingly. On today's evaluation patient is seen on selective care unit, he appears to be still quite dyspneic, however improved from yesterday's exam, he is off BiPAP support, and he is currently on 6 L of oxygen, with a pulse ox of 84-89%. he tolerates and off BiPAP support briefly and for meals, however returns to BiPAP support tolerates it quite well. His CTA chest showed evidence of pulmonary embolism in the right lower lobe, segmental and subsegmental branches. Diffuse interstitial opacities, that could represent acute on chronic disease. Patient continues on IV steroids, nebulized bronchodilators, and empiric antibiotics. No fever or chills overnight. Right-sided chest discomfort is subsided. There has been no hemoptysis, no lower extremity swelling On 04/15/2021, the patient is feeling more comfortable. He is able to speak longer sentences although his speech is still interrupted. He is slightly tachypneic. Overall condition is improved. He is currently not to 5 L per minute nasal cannula. Using the BiPAP overnight at a pressure of 14/6 cm of water. Further investigation as mentioned revealed pulmonary embolism on the right. Further investigation showed a popliteal DVT on the right. Echocardiogram shows an ejection fraction of 55-60%. RV severely enlarged, RV systolic function is moderately impaired, RA is mildly enlarged, severe tricuspid regurgitation, pulmonary artery pressures are in the order of 94 mmHg. LV ejection fraction is 55-60%. Objective - Vital Signs Vital signs: Vital Signs Temp 98.6 F 04/15/21 07:45 Pulse 78 04/15/21 10:52 Resp 22 04/15/21 08:22 BP 95/62 04/15/21 07:45 Pulse Ox 94 L 04/15/21 08:22 Intake & Output 04/14/21 04/15/21 04/15/21 18:59 06:59 18:59 Intake Total 598.935 Output Total 1450 Balance 598.935 -1450 Weight 96.5 kg Intake: Intake, IV Titration 118.935 Amount Heparin Sod,Pork in 0.45% 118.935 NaCl 25,000 unit In 0.45 % NaCl 1 250ml.bag @ 18 UNITS/KG/HR 18.697 mls/hr IV .[id number] [facility] Rx#: [id number] Oral 480 Output: Urine 1450 Other: Voiding Method Urinal Urinal # Voids 2 - Exam The patient is currently in mild degree of respiratory distress on 5 liters 02 Head exam was generally normal. There was no scleral icterus or corneal arcus. Mucous membranes were moist. Neck was supple and without jugular venous distension, thyromegaly, or carotid bruits. Carotids were easily palpable bilaterally. There was no adenopathy. Examination of the lungs shows a Velcro crackles in lung bases bilaterally. The patient diminished breath sounds throughout the lung his bilaterally. There is also prolongation of the exhalation phase of breathing. Cardiac exam revealed the PMI to be normally situated and sized. The rhythm was regular and no extrasystoles were noted during several minutes of auscultation. The first and second heart sounds were normal and physiologic splitting of the second heart sound was noted. There were no murmurs, rubs, clicks, or gallops. Abdomen abdomen Abdominal exam revealed normal bowel sounds. The abdomen was soft, non-tender, and without masses, organomegaly, or appreciable enlargement of the abdominal aorta. Examination of the extremities revealed easily palpable radial, femoral and pedal pulses. There was no cyanosis, or edema. Clubbing of fingernails noted Examination of the skin revealed no evidence of significant rashes, suspicious appearing nevi or other concerning lesions. Neurologically, the patient is awake and alert and the patient does not have any focal neurological deficit. Cranial nerves are essentially intact. - Labs CBC & Chem 7: 04/15/21 10:20 04/15/21 10:20 Labs: Abnormal Lab Results - Last 24 Hours (Table) 04/14/21 04/14/21 04/14/21 Range/Units 11:18 12:11 16:39 WBC (3.8-10.6) k/uL Neutrophils # (1.3-7.7) k/uL Lymphocytes # (1.0-4.8) k/uL APTT 60.2 H (22.0-30.0) sec Sodium (137-145) mmol/L Carbon Dioxide (22-30) mmol/L Creatinine (0.66-1.25) mg/dL Glucose (74-99) mg/dL POC Glucose (mg/dL) 205 H 226 H (75-99) mg/dL 04/14/21 04/15/21 04/15/21 Range/Units 20:30 05:54 10:20 WBC 14.4 H (3.8-10.6) k/uL Neutrophils # 13.0 H (1.3-7.7) k/uL Lymphocytes # 0.6 L (1.0-4.8) k/uL APTT (22.0-30.0) sec Sodium (137-145) mmol/L Carbon Dioxide (22-30) mmol/L Creatinine (0.66-1.25) mg/dL Glucose (74-99) mg/dL POC Glucose (mg/dL) 258 H 219 H (75-99) mg/dL 04/15/21 Range/Units 10:20 WBC (3.8-10.6) k/uL Neutrophils # (1.3-7.7) k/uL Lymphocytes # (1.0-4.8) k/uL APTT (22.0-30.0) sec Sodium 133 L (137-145) mmol/L Carbon Dioxide 21 L (22-30) mmol/L Creatinine 0.60 L (0.66-1.25) mg/dL Glucose 360 H (74-99) mg/dL POC Glucose (mg/dL) (75-99) mg/dL Assessment and Plan Plan: Assessment: #1. Acute right lower extremity DVT and secondary pulmonary embolism involving the subsegmental pulmonary artery branches on the right. Echocardiogram showing severe pulmonary hypertension and RV dysfunction. I doubt this is related to the pulmonary embolism knowing that the clot burden is very minimal at this point in time. It's likely the patient has a component of chronic pulmonary hypertension because of his chronic lung disease and there may be some interval worsening in the PA pressures because of his underlying PE. For now, he is on anticoagulation. #2. Idiopathic pulmonary fibrosis maintained on Esbriet #3. Chronic hypoxic respiratory failure related to COPD and pulmonary fibrosis #4. severe pulmonary hypertension with RV dysfunction, likely chronic #5. Former smoker, in remission for 3 years #6. Completed vaccination for COVID 19 Plan Continue 5 liters Continue Levaquin 750mg daily po Continue steroids and breathing treatments Hold Esbriet right now Continue oral Eliquis and the patient was taken off the IV heparin Pulmonary artery pressures are noted. Echocardiogram was noted. I believe there is obvious signs of chronic pulmonary hypertension rather than immediate or acute pulmonary hypertension. The clot burden is minimal at this point in time. 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
[2021-04-15 11:56] LABS: Glucose,Whole Blood 352 mg/dL (75-99)
[2021-04-15 12:09] LABS: Glucose,Whole Blood 359 mg/dL (75-99)
[2021-04-15] MEDS: INSULIN DETEMIR (LEVEMIR) 100 UNIT/ML SYR SQ SCH ×2 (12:32→20:27)
[2021-04-15] MEDS: IPRATROPIUM-ALBUTEROL 3 ML NEB INHALATION PRN (15:18)
[2021-04-15] MEDS: SODIUM CHLORIDE 0.9% 1,000 ML IV SCH (15:28)
[2021-04-15 16:49] LABS: Glucose,Whole Blood 267 mg/dL (75-99)
[2021-04-15 21:00] LABS: Glucose,Whole Blood 218 mg/dL (75-99)
[2021-04-15] MEDS: ALPRAZolam 0.5 MG TAB PO PRN (21:52)
[2021-04-16] MEDS: methylPREDNISolone SOD SUCCI 125 MG/2 ML VIAL IV SCH ×4 (06:15→23:40)
[2021-04-16] MEDS: PANTOPRAZOLE 40 MG TABLET PO SCH (06:15)
[2021-04-16] MEDS: INSULIN ASPART (NovoLOG) 100 UNIT/ML VIAL SQ SCH ×4 (06:15→20:53)
[2021-04-16 06:40] LABS: Glucose,Whole Blood 160 mg/dL (75-99)
[2021-04-16] MEDS: IPRATROPIUM-ALBUTEROL 3 ML NEB INHALATION SCH ×3 (07:14→18:35)
[2021-04-16] MEDS: LEVOFLOXACIN 750 MG TAB PO SCH (08:01)
[2021-04-16] MEDS: APIXABAN 5 MG TAB PO SCH ×2 (08:01→20:19)
[2021-04-16] MEDS: BENZONATATE 100 MG CAP PO SCH ×3 (08:01→20:52)
[2021-04-16 08:36] LABS: African American GFR (CKD) >90 (>60 ml/min/1.73 sqM); Anion Gap 8 mmol/L; Blood Urea Nitrogen 19 mg/dL (9-20); Calcium 8.7 mg/dL (8.4-10.2); Carbon Dioxide 28 mmol/L (22-30); Chloride 101 mmol/L (98-107); Glucose 161 mg/dL (74-99); Non-African American GFR(CKD) >90 (>60 ml/min/1.73 sqM); Potassium 4.8 mmol/L (3.5-5.1); Sodium 137 mmol/L (137-145)
[2021-04-16 09:03] LABS: Basophils % (A) 0 %; Eosinophils # (A) 0.1 k/uL (0-0.7); Eosinophils % (A) 0 %; HCT 48.9 % (39.0-53.0); HGB 16.5 gm/dL (13.0-17.5); Lymphocytes # (A) 0.9 k/uL (1.0-4.8); Lymphocytes % (A) 6 %; MCH 32.2 pg (25.0-35.0); MCHC 33.7 g/dL (31.0-37.0); MCV 95.5 fL (80.0-100.0); Mean Platelet Volume 8.7; Monocytes # (A) 0.7 k/uL (0-1.0); Monocytes % (A) 5 %; Neutrophils # (A) 11.8 k/uL (1.3-7.7); Neutrophils % (A) 87 %; Platelet Count 197 k/uL (150-450); RBC 5.12 m/uL (4.30-5.90); RDW 14.4 % (11.5-15.5); WBC 13.5 k/uL (3.8-10.6)
--- NOTE | 2021-04-16 10:27 | P.PN ---
Subjective Progress Note Date: 04/15/21 Principal diagnosis: Acute pulmonary embolism Acute hypoxic respiratory failure secondary to PE, underlying COPD and pulmonary fibrosis Patient is a 60-year-old male with a known history of COPD, pulmonary fibrosis, chronic hypoxic respiratory failure on oxygen at 2 L via nasal cannula presents to ER with the complaints of worsening shortness of breath. According to his patient did have cough spell which usually improves but today afternoon patient became more short of breath and pulse ox was 77% given it 5 L of oxygen via nasal cannula. Patient was brought to ER. Patient is also having chest tightness/discomfort when trying to take deep breath. Cough without sputum production. No fever no chills. Patient does have nebulizer and CPAP at home. On admission patient was tachycardic tachypneic and his pulse ox 74% on room air. Patient was placed on BiPAP in the ER. Chest x-ray showed cardiomegaly with diffuse interstitial opacities more confluent in the periphery of the mid and lower lungs. Chronicity is unclear. Consider interstitial pulmonary edema, atypical pneumonia and/or pulmonary fibrosis. Possible moderate sized hiatal hernia. EKG showed normal sinus rhythm. Chest CTA showed acute PE involving the right lower lobe segmental subsegmental bronchial branches. Diffuse interstitial opacities may represent acute on chronic disease. Laboratory data showed WBC 14.1 hemoglobin 19.5 and platelets 161 BUN 13 and creatinine 0.74 lactic acid 2.7 and proBNP 3790 and procalcitonin level is 0.1 04/14/2021 Patient seen and evaluated in follow-up this morning continues to have difficulty in breathing and extremely dyspneic with minimal exertion and is becoming extremely anxious and lower oxygen saturations of 84% on 6 L nasal cannula and was placed back on BiPAP per nursing staff. Pulmonary following closely. Patient did undergo chest CTA which showed a pulmonary embolism and was started on IV heparin and will continue for now. Eliquis prescription was sent to the pharmacy to verify coverage in case management made aware. White blood count slightly improved at 11.8, hemoglobin is 17.1. Patient is continued on breathing inhalational treatments along with IV Levaquin and IV steroids and will continue at this time. Patient was given a dose of IV Lasix last night with some improvement in breathing. 04/15/21 Patient is lying in the bed. Awake alert oriented 3 currently maintained on BiPAP. Patient was transitioned to 6 L oxygen with another cannula this morning but was back on BiPAP now. Next and bilateral lower extremity duplex scan showed right popliteal and femoral DVT. Echocardiogram showed ejection fraction between 60% and right ventricular is severely dilated with severe TR and pulmonary hypertension. Patient is being continued on Solu-Medrol, DuoNeb's and antibiotics, Levaquin. Heparin has been transitioned to Eliquis. pulmonary is on board. Review of systems: Constitutional: No reports of fatigue, fever, or chills, reports anxiousness Cardiovascular: No reports of chest pain or palpitations Respiratory: reports of shortness of breath GI: No reports of nausea, vomiting, or diarrhea : No reports of dysuria or retention Neurovascular: No reports of weakness or numbness All medications have been reviewed Objective - Vital Signs Vital signs: Vital Signs Temp 98.4 F 04/15/21 19:35 Pulse 71 04/15/21 19:35 Resp 26 H 04/15/21 20:00 BP 105/69 04/15/21 19:35 Pulse Ox 94 L 04/15/21 19:35 Intake & Output 04/15/21 04/15/21 04/16/21 06:59 18:59 06:59 Intake Total 800 Output Total 1450 1075 Balance -1450 -275 Weight 96.5 kg Intake: Intake, IV Titration 80 Amount Sodium Chloride 0.9% 1, 80 000 ml @ 10 mls/hr IV . Q24H [facility] Rx#:[id number] Oral 720 Output: Urine 1450 1075 Other: Voiding Method Urinal Urinal Urinal - Exam - Exam Patient is sitting up in the bed slightly anxious, awake alert and oriented.. HEENT: Normocephalic. Neck is supple. Pupils reactive. Nostrils clear. Oral cavity is moist. Neck reveals no JVD, carotid bruits, or thyromegaly. CHEST EXAMINATION: Trachea is central. Symmetrical expansion. Bilateral diminished air entry. Scattered rhonchi. tachypneic CARDIAC: Normal S1, S2 with no gallops. No murmurs ABDOMEN: Soft. Bowel sounds normal. No organomegaly. No abdominal bruits. Extremities: reveal no edema. No clubbing or cyanosis Neurologically awake, alert, oriented, with well-coordinated movements. No focal deficits noted Skin: No rash or skin lesions. Psychiatric: Cooperative. Musculoskeletal: No joint swelling or deformity. Normal range of motion. - Labs CBC & Chem 7: 04/16/21 08:44 04/16/21 07:38 Labs: Abnormal Lab Results - Last 24 Hours (Table) 04/15/21 04/15/21 04/15/21 Range/Units 05:54 10:20 10:20 WBC 14.4 H (3.8-10.6) k/uL Neutrophils # 13.0 H (1.3-7.7) k/uL Lymphocytes # 0.6 L (1.0-4.8) k/uL Sodium 133 L (137-145) mmol/L Carbon Dioxide 21 L (22-30) mmol/L Creatinine 0.60 L (0.66-1.25) mg/dL Glucose 360 H (74-99) mg/dL POC Glucose (mg/dL) 219 H (75-99) mg/dL 04/15/21 04/15/21 04/15/21 Range/Units 11:56 12:07 16:46 WBC (3.8-10.6) k/uL Neutrophils # (1.3-7.7) k/uL Lymphocytes # (1.0-4.8) k/uL Sodium (137-145) mmol/L Carbon Dioxide (22-30) mmol/L Creatinine (0.66-1.25) mg/dL Glucose (74-99) mg/dL POC Glucose (mg/dL) 352 H 359 H 267 H (75-99) mg/dL 04/15/21 Range/Units 20:13 WBC (3.8-10.6) k/uL Neutrophils # (1.3-7.7) k/uL Lymphocytes # (1.0-4.8) k/uL Sodium (137-145) mmol/L Carbon Dioxide (22-30) mmol/L Creatinine (0.66-1.25) mg/dL Glucose (74-99) mg/dL POC Glucose (mg/dL) 218 H (75-99) mg/dL Assessment and Plan Assessment: Acute on chronic hypoxic respiratory failure is due to multifactorial etiology. Acute PE involving the right lower lobe segmental and subsegmental branches. Right popliteal and femoral DVT Acute COPD exacerbation Possible pneumonia with underlying pulmonary fibrosis Severe pulmonary hypertension with severe RV dilation and severe TR. Chronic hypoxic respiratory failure secondary to COPD and pulmonary fibrosis Lactic acidosis due to hypoxia Previous history of smoking GI prophylaxis DVT prophylaxis: Currently on IV heparin No code Plan: Patient is currently being placed back on BiPAP with low oxygen saturations in the 80s on 6 L via nasal cannula. Pulmonary following closely. Continue with Solu-Medrol and duo nebs. Continue with antibiotics in the form of Levaquin. Prescription was sent to the pharmacy to verify anticoagulation coverage as he will likely need this on discharge. Continue to follow closely. Will repeat a.m. labs. Due to multiple complex med ical issues, prognosis is guarded. Time with Patient: Greater than 30
[2021-04-16 11:17] LABS: Glucose,Whole Blood 229 mg/dL (75-99)
[2021-04-16] MEDS: SODIUM CHLORIDE 0.9% 1,000 ML IV SCH (11:19)
--- NOTE | 2021-04-16 11:39 | P.PN ---
Subjective Progress Note Date: 04/16/21 61-year-old male patient known history of COPD and advanced pulmonary fibrosis, oxygen dependent. The patient has been followed up in our office with and he has been maintained on Esbriet to 67 mg 2 tablets 3 times a day. During an earlier evaluation evaluation on office wasn't back in December 2020. At that time, his pulse ox on room air was at 77%. He was quickly placed on oxygen. Has been using his oxygen 24 7 since. He was educated to do so. He is on oxygen 2 L per minute nasal cannula. He has been also maintained on a combination of Symbicort and Ventolin rescue inhaler on an as-needed basis. He has completed his COVID vaccination. Based on the previous port function test that was done and 01/30/2019, the patient has a FVC of 80%. His diffusion capacity was a 40% and no follow-up with function tests was done since. His most recent CAT scan of the chest was done and [facility] he showed moderate centrilobular and paraseptal emphysema and bronchiectasis in addition to interstitial pulmonary fibrosis there was moderate to severe in nature and this was done on 05/26/2020. He has other comorbidities including chronic pain and sciatica. The patient came into the emergency department this afternoon because of worsening shortness of breath and exertional dyspnea. He was having chest discomfort when he was trying to take a deep breath. He had a cough with minimal amount of sputum production. Denies having any fever or chills. He was taking all of his home medications. No swelling in lower extremities. In the emergency, he was found that her white cell count of 14.1, hemoglobin was 19.5 consistent with chronic hypoxemia and secondary erythrocytosis. His serum bicarb is at 18, the electrodes are all within normal limits, proBNP level was 3790, liver function tests were all essentially within normal limits, lactic acid level was at 0.7, chest x-ray was consistent with interstitial fibrosis, diffuse with lower lobe and peripheral predominance. Pulse ox on room air was 74%. The patient immediately was placed on a BiPAP. He was tachycardic at time of admission with a heart rate of 120 and a respiration of 36, much improved while on the BiPAP. He was hospitalized accordingly. On today's evaluation patient is seen on selective care unit, he appears to be still quite dyspneic, however improved from yesterday's exam, he is off BiPAP support, and he is currently on 6 L of oxygen, with a pulse ox of 84-89%. he tolerates and off BiPAP support briefly and for meals, however returns to BiPAP support tolerates it quite well. His CTA chest showed evidence of pulmonary embolism in the right lower lobe, segmental and subsegmental branches. Diffuse interstitial opacities, that could represent acute on chronic disease. Patient continues on IV steroids, nebulized bronchodilators, and empiric antibiotics. No fever or chills overnight. Right-sided chest discomfort is subsided. There has been no hemoptysis, no lower extremity swelling On 04/15/2021, the patient is feeling more comfortable. He is able to speak longer sentences although his speech is still interrupted. He is slightly tachypneic. Overall condition is improved. He is currently not to 5 L per minute nasal cannula. Using the BiPAP overnight at a pressure of 14/6 cm of water. Further investigation as mentioned revealed pulmonary embolism on the right. Further investigation showed a popliteal DVT on the right. Echocardiogram shows an ejection fraction of 55-60%. RV severely enlarged, RV systolic function is moderately impaired, RA is mildly enlarged, severe tricuspid regurgitation, pulmonary artery pressures are in the order of 94 mmHg. LV ejection fraction is 55-60%. 04/16/2021, the patient is asked on his BiPAP at a pressure of 14/6 with an FiO2 of 40%. Earlier, he was on 5 L of oxygen by nasal cannula. He was found to be hypoxic and he was dropping his pulse ox. Accordingly he was placed on a BiPAP and current pulse is around 90-94%. There is urinating tidal volume is around 893 while on the BiPAP and the respiratory rate of around 24. He is awake and alert. Denies having any chest pain. As mentioned earlier, he is a popliteal DVT of the right lower extremity and the patient also has severe pulmonary hypertension. The patient is currently on Eliquis 10 mg by mouth twice a day. Left ventricle ejection fraction is within normal limits. No chest pain. No pleurisy. No hemoptysis. No bleeding complications. Objective - Vital Signs Vital signs: Vital Signs Temp 98.0 F 04/16/21 11:21 Pulse 76 04/16/21 11:21 Resp 30 H 04/16/21 11:21 BP 115/70 04/16/21 11:21 Pulse Ox 91 L 04/16/21 11:21 Intake & Output 04/15/21 04/16/21 04/16/21 18:59 06:59 18:59 Intake Total 800 Output Total 1075 400 Balance -275 -400 Intake: Intake, IV Titration 80 Amount Sodium Chloride 0.9% 1, 80 000 ml @ 10 mls/hr IV . Q24H [facility] Rx#:[id number] Oral 720 Output: Urine 1075 400 Other: Voiding Method Urinal Urinal Urinal # Voids 1 - Exam The patient is currently in mild degree of respiratory distress on BIPAP Head exam was generally normal. There was no scleral icterus or corneal arcus. Mucous membranes were moist. Neck was supple and without jugular venous distension, thyromegaly, or carotid bruits. Carotids were easily palpable bilaterally. There was no adenopathy. Examination of the lungs shows a Velcro crackles in lung bases bilaterally. The patient diminished breath sounds throughout the lung his bilaterally. There is also prolongation of the exhalation phase of breathing. Cardiac exam revealed the PMI to be normally situated and sized. The rhythm was regular and no extrasystoles were noted during several minutes of auscultation. The first and second heart sounds were normal and physiologic splitting of the second heart sound was noted. There were no murmurs, rubs, clicks, or gallops. Abdomen abdomen Abdominal exam revealed normal bowel sounds. The abdomen was soft, non-tender, and without masses, organomegaly, or appreciable enlargement of the abdominal aorta. Examination of the extremities revealed easily palpable radial, femoral and pedal pulses. There was no cyanosis, or edema. Clubbing of fingernails noted Examination of the skin revealed no evidence of significant rashes, suspicious appearing nevi or other concerning lesions. Neurologically, the patient is awake and alert and the patient does not have any focal neurological deficit. Cranial nerves are essentially intact. - Labs CBC & Chem 7: 04/16/21 08:44 04/16/21 07:38 Labs: Abnormal Lab Results - Last 24 Hours (Table) 04/15/21 04/15/21 04/15/21 Range/Units 11:56 12:07 16:46 WBC (3.8-10.6) k/uL Neutrophils # (1.3-7.7) k/uL Lymphocytes # (1.0-4.8) k/uL Creatinine (0.66-1.25) mg/dL Glucose (74-99) mg/dL POC Glucose (mg/dL) 352 H 359 H 267 H (75-99) mg/dL 04/15/21 04/16/21 04/16/21 Range/Units 20:13 06:09 07:38 WBC (3.8-10.6) k/uL Neutrophils # (1.3-7.7) k/uL Lymphocytes # (1.0-4.8) k/uL Creatinine 0.65 L (0.66-1.25) mg/dL Glucose 161 H (74-99) mg/dL POC Glucose (mg/dL) 218 H 160 H (75-99) mg/dL 04/16/21 04/16/21 Range/Units 08:44 11:15 WBC 13.5 H (3.8-10.6) k/uL Neutrophils # 11.8 H (1.3-7.7) k/uL Lymphocytes # 0.9 L (1.0-4.8) k/uL Creatinine (0.66-1.25) mg/dL Glucose (74-99) mg/dL POC Glucose (mg/dL) 229 H (75-99) mg/dL Assessment and Plan Plan: Assessment: #1. Acute right lower extremity DVT and secondary pulmonary embolism involving the subsegmental pulmonary artery branches on the right. Echocardiogram showing severe pulmonary hypertension and RV dysfunction. I doubt this is related to the pulmonary embolism knowing that the clot burden is very minimal at this point in time. It's likely the patient has a component of chronic pulmonary hypertension because of his chronic lung disease and there may be some interval worsening in the PA pressures because of his underlying PE. For now, he is on anticoagulation. #2. Idiopathic pulmonary fibrosis maintained on Esbriet #3. Chronic hypoxic respiratory failure related to COPD and pulmonary fibrosis #4. severe pulmonary hypertension with RV dysfunction, likely chronic #5. Former smoker, in remission for 3 years #6. Completed vaccination for COVID 19 Plan Continue BIPAP Continue Levaquin 750mg daily po Continue steroids and breathing treatments Hold Esbriet right now Continue oral Eliquis 10 mg BID Pulmonary artery pressures are noted. Echocardiogram was noted. I believe there is obvious signs of chronic pulmonary hypertension rather than immediate or acute pulmonary hypertension. The clot burden is minimal at this point in time. I do not think there is Ekos patient has chronic IPF, chronic hypoxemia and chronic pulmonary hypertension Plan with discussed with patient and his Code status discussed - patient made it clear he wants no aggressive life support treatment, no CPR, no intubation or defibrillation KENNETH/DVT prophylaxis intermediate manager prognosis is poor, DNR DNI code status per patient request.
[2021-04-16 16:47] LABS: Glucose,Whole Blood 291 mg/dL (75-99)
[2021-04-16] MEDS ORDERED: INSULIN ASPART (NovoLOG) 100 UNIT/ML VIAL SQ ONE (17:30)
[2021-04-16] MEDS: ALPRAZolam 0.5 MG TAB PO PRN (20:19)
[2021-04-16] MEDS: INSULIN DETEMIR (LEVEMIR) 100 UNIT/ML SYR SQ SCH (20:52)
[2021-04-16 21:04] LABS: Glucose,Whole Blood 251 mg/dL (75-99)
--- NOTE | 2021-04-16 22:59 | P.PN ---
Subjective Progress Note Date: 04/16/21 Principal diagnosis: Acute pulmonary embolism Acute hypoxic respiratory failure secondary to PE, underlying COPD and pulmonary fibrosis Patient is a 60-year-old male with a known history of COPD, pulmonary fibrosis, chronic hypoxic respiratory failure on oxygen at 2 L via nasal cannula presents to ER with the complaints of worsening shortness of breath. According to his patient did have cough spell which usually improves but today afternoon patient became more short of breath and pulse ox was 77% given it 5 L of oxygen via nasal cannula. Patient was brought to ER. Patient is also having chest tightness/discomfort when trying to take deep breath. Cough without sputum production. No fever no chills. Patient does have nebulizer and CPAP at home. On admission patient was tachycardic tachypneic and his pulse ox 74% on room air. Patient was placed on BiPAP in the ER. Chest x-ray showed cardiomegaly with diffuse interstitial opacities more confluent in the periphery of the mid and lower lungs. Chronicity is unclear. Consider interstitial pulmonary edema, atypical pneumonia and/or pulmonary fibrosis. Possible moderate sized hiatal hernia. EKG showed normal sinus rhythm. Chest CTA showed acute PE involving the right lower lobe segmental subsegmental bronchial branches. Diffuse interstitial opacities may represent acute on chronic disease. Laboratory data showed WBC 14.1 hemoglobin 19.5 and platelets 161 BUN 13 and creatinine 0.74 lactic acid 2.7 and proBNP 3790 and procalcitonin level is 0.1 04/14/2021 Patient seen and evaluated in follow-up this morning continues to have difficulty in breathing and extremely dyspneic with minimal exertion and is becoming extremely anxious and lower oxygen saturations of 84% on 6 L nasal cannula and was placed back on BiPAP per nursing staff. Pulmonary following closely. Patient did undergo chest CTA which showed a pulmonary embolism and was started on IV heparin and will continue for now. Eliquis prescription was sent to the pharmacy to verify coverage in case management made aware. White blood count slightly improved at 11.8, hemoglobin is 17.1. Patient is continued on breathing inhalational treatments along with IV Levaquin and IV steroids and will continue at this time. Patient was given a dose of IV Lasix last night with some improvement in breathing. 04/15/21 Patient is lying in the bed. Awake alert oriented 3 currently maintained on BiPAP. Patient was transitioned to 6 L oxygen with another cannula this morning but was back on BiPAP now. Next and bilateral lower extremity duplex scan showed right popliteal and femoral DVT. Echocardiogram showed ejection fraction between 60% and right ventricular is severely dilated with severe TR and pulmonary hypertension. Patient is being continued on Solu-Medrol, DuoNeb's and antibiotics, Levaquin. Heparin has been transitioned to Eliquis. pulmonary is on board. 04/16/2021 Patient is currently resting in the bed. Was on BiPAP 14 x 16 with FiO2 40%. Patient required BiPAP during lunchtime 6 L oxygen via nasal cannula. Patient was desaturating with nasal cannula. Denied any complaints of chest pain or worsening shortness of. No fever no chills. Patient is being current on Eliquis 10 mg twice daily. Laboratory data showed WBC 13.5 hemoglobin 16.5 and platelets 197, BUN 19 and creatinine 0.65 Current living current antibiotic in the form of Levaquin and IV steroids and duo nebs. Pulmonary is following. Blood sugar is 229. Review of systems: Constitutional: No reports of fatigue, fever, or chills, reports anxiousness Cardiovascular: No reports of chest pain or palpitations Respiratory: reports of shortness of breath GI: No reports of nausea, vomiting, or diarrhea : No reports of dysuria or retention Neurovascular: No reports of weakness or numbness All medications have been reviewed Objective - Vital Signs Vital signs: Vital Signs Temp 97.7 F 04/16/21 08:00 Pulse 88 04/16/21 08:00 Resp 29 H 04/16/21 08:00 BP 124/59 04/16/21 08:00 Pulse Ox 88 L 04/16/21 08:00 Intake & Output 04/15/21 04/16/21 04/16/21 18:59 06:59 18:59 Intake Total 800 Output Total 1075 400 Balance -275 -400 Intake: Intake, IV Titration 80 Amount Sodium Chloride 0.9% 1, 80 000 ml @ 10 mls/hr IV . Q24H [facility] Rx#:[id number] Oral 720 Output: Urine 1075 400 Other: Voiding Method Urinal Urinal Urinal # Voids 1 - Exam - Exam Patient is sitting up in the bed slightly anxious, awake alert and oriented.. HEENT: Normocephalic. Neck is supple. Pupils reactive. Nostrils clear. Oral cavity is moist. Neck reveals no JVD, carotid bruits, or thyromegaly. CHEST EXAMINATION: Trachea is central. Symmetrical expansion. Bilateral diminished air entry. Scattered rhonchi. tachypneic CARDIAC: Normal S1, S2 with no gallops. No murmurs ABDOMEN: Soft. Bowel sounds normal. No organomegaly. No abdominal bruits. Extremities: reveal no edema. No clubbing or cyanosis Neurologically awake, alert, oriented, with well-coordinated movements. No focal deficits noted Skin: No rash or skin lesions. Psychiatric: Cooperative. Musculoskeletal: No joint swelling or deformity. Normal range of motion. - Labs CBC & Chem 7: 04/16/21 08:44 04/16/21 07:38 Labs: Abnormal Lab Results - Last 24 Hours (Table) 04/15/21 04/15/21 04/15/21 Range/Units 10:20 10:20 11:56 WBC 14.4 H (3.8-10.6) k/uL Neutrophils # 13.0 H (1.3-7.7) k/uL Lymphocytes # 0.6 L (1.0-4.8) k/uL Sodium 133 L (137-145) mmol/L Carbon Dioxide 21 L (22-30) mmol/L Creatinine 0.60 L (0.66-1.25) mg/dL Glucose 360 H (74-99) mg/dL POC Glucose (mg/dL) 352 H (75-99) mg/dL 04/15/21 04/15/21 04/15/21 Range/Units 12:07 16:46 20:13 WBC (3.8-10.6) k/uL Neutrophils # (1.3-7.7) k/uL Lymphocytes # (1.0-4.8) k/uL Sodium (137-145) mmol/L Carbon Dioxide (22-30) mmol/L Creatinine (0.66-1.25) mg/dL Glucose (74-99) mg/dL POC Glucose (mg/dL) 359 H 267 H 218 H (75-99) mg/dL 04/16/21 04/16/21 04/16/21 Range/Units 06:09 07:38 08:44 WBC 13.5 H (3.8-10.6) k/uL Neutrophils # 11.8 H (1.3-7.7) k/uL Lymphocytes # 0.9 L (1.0-4.8) k/uL Sodium (137-145) mmol/L Carbon Dioxide (22-30) mmol/L Creatinine 0.65 L (0.66-1.25) mg/dL Glucose 161 H (74-99) mg/dL POC Glucose (mg/dL) 160 H (75-99) mg/dL Assessment and Plan Assessment: Acute on chronic hypoxic respiratory failure is due to multifactorial etiology. Acute PE involving the right lower lobe segmental and subsegmental branches. Right popliteal and femoral DVT Acute COPD exacerbation Possible pneumonia with underlying pulmonary fibrosis Severe pulmonary hypertension with severe RV dilation and severe TR. Chronic hypoxic respiratory failure secondary to COPD and pulmonary fibrosis Lactic acidosis due to hypoxia Previous history of smoking GI prophylaxis DVT prophylaxis: Currently on IV heparin No code Plan: Patient is currently being placed back on BiPAP with low oxygen saturations in the 80s on 6 L via nasal cannula. Pulmonary following closely. Continue with Solu-Medrol and duo nebs. Continue with antibiotics in the form of Levaquin. Prescription was sent to the pharmacy to verify anticoagulation coverage as he will likely need this on discharge. Continue to follow closely. Will repeat a.m. labs. Due to multiple complex medical issues, prognosis is guarded. Time with Patient: Greater than 30
[2021-04-17 06:50] LABS: Glucose,Whole Blood 192 mg/dL (75-99)
[2021-04-17] MEDS: methylPREDNISolone SOD SUCCI 125 MG/2 ML VIAL IV SCH ×4 (06:52→22:50)
[2021-04-17] MEDS: PANTOPRAZOLE 40 MG TABLET PO SCH (06:52)
[2021-04-17] MEDS: INSULIN ASPART (NovoLOG) 100 UNIT/ML VIAL SQ SCH ×4 (06:52→21:20)
[2021-04-17 08:03] LABS: Basophils % (A) 0 %; Eosinophils % (A) 0 %; HCT 51.7 % (39.0-53.0); HGB 17.3 gm/dL (13.0-17.5); Lymphocytes # (A) 1.2 k/uL (1.0-4.8); Lymphocytes % (A) 9 %; MCH 31.5 pg (25.0-35.0); MCHC 33.4 g/dL (31.0-37.0); MCV 94.4 fL (80.0-100.0); Mean Platelet Volume 8.3; Monocytes # (A) 0.9 k/uL (0-1.0); Monocytes % (A) 7 %; Neutrophils # (A) 10.3 k/uL (1.3-7.7); Neutrophils % (A) 81 %; Platelet Count 208 k/uL (150-450); RBC 5.47 m/uL (4.30-5.90); RDW 14.2 % (11.5-15.5); WBC 12.6 k/uL (3.8-10.6)
[2021-04-17] MEDS: IPRATROPIUM-ALBUTEROL 3 ML NEB INHALATION SCH ×3 (08:15→20:24)
[2021-04-17 08:37] LABS: African American GFR (CKD) >90 (>60 ml/min/1.73 sqM); Anion Gap 7 mmol/L; Blood Urea Nitrogen 20 mg/dL (9-20); Calcium 8.2 mg/dL (8.4-10.2); Carbon Dioxide 28 mmol/L (22-30); Chloride 101 mmol/L (98-107); Glucose 192 mg/dL (74-99); Non-African American GFR(CKD) >90 (>60 ml/min/1.73 sqM); Potassium 4.8 mmol/L (3.5-5.1); Sodium 136 mmol/L (137-145)
[2021-04-17] MEDS: BENZONATATE 100 MG CAP PO SCH ×3 (09:25→21:19)
[2021-04-17] MEDS: LEVOFLOXACIN 750 MG TAB PO SCH (09:25)
[2021-04-17] MEDS: APIXABAN 5 MG TAB PO SCH ×2 (09:25→21:19)
[2021-04-17] MEDS: FUROSEMIDE 10 MG/ML 2 ML VIAL IV SCH ×2 (10:45→21:19)
[2021-04-17 11:58] LABS: Glucose,Whole Blood 274 mg/dL (75-99)
--- NOTE | 2021-04-17 13:46 | P.PN ---
Subjective Progress Note Date: 04/17/21 61-year-old male patient known history of COPD and advanced pulmonary fibrosis, oxygen dependent. The patient has been followed up in our office with and he has been maintained on Esbriet to 67 mg 2 tablets 3 times a day. During an earlier evaluation evaluation on office wasn't back in December 2020. At that time, his pulse ox on room air was at 77%. He was quickly placed on oxygen. Has been using his oxygen 24 7 since. He was educated to do so. He is on oxygen 2 L per minute nasal cannula. He has been also maintained on a combination of Symbicort and Ventolin rescue inhaler on an as-needed basis. He has completed his COVID vaccination. Based on the previous port function test that was done and 01/30/2019, the patient has a FVC of 80%. His diffusion capacity was a 40% and no follow-up with function tests was done since. His most recent CAT scan of the chest was done and [facility] he showed moderate centrilobular and paraseptal emphysema and bronchiectasis in addition to interstitial pulmonary fibrosis there was moderate to severe in nature and this was done on 05/26/2020. He has other comorbidities including chronic pain and sciatica. The patient came into the emergency department this afternoon because of worsening shortness of breath and exertional dyspnea. He was having chest discomfort when he was trying to take a deep breath. He had a cough with minimal amount of sputum production. Denies having any fever or chills. He was taking all of his home medications. No swelling in lower extremities. In the emergency, he was found that her white cell count of 14.1, hemoglobin was 19.5 consistent with chronic hypoxemia and secondary erythrocytosis. His serum bicarb is at 18, the electrodes are all within normal limits, proBNP level was 3790, liver function tests were all essentially within normal limits, lactic acid level was at 0.7, chest x-ray was consistent with interstitial fibrosis, diffuse with lower lobe and peripheral predominance. Pulse ox on room air was 74%. The patient immediately was placed on a BiPAP. He was tachycardic at time of admission with a heart rate of 120 and a respiration of 36, much improved while on the BiPAP. He was hospitalized accordingly. On today's evaluation patient is seen on selective care unit, he appears to be still quite dyspneic, however improved from yesterday's exam, he is off BiPAP support, and he is currently on 6 L of oxygen, with a pulse ox of 84-89%. he tolerates and off BiPAP support briefly and for meals, however returns to BiPAP support tolerates it quite well. His CTA chest showed evidence of pulmonary embolism in the right lower lobe, segmental and subsegmental branches. Diffuse interstitial opacities, that could represent acute on chronic disease. Patient continues on IV steroids, nebulized bronchodilators, and empiric antibiotics. No fever or chills overnight. Right-sided chest discomfort is subsided. There has been no hemoptysis, no lower extremity swelling On 04/17/2021 patient seen in follow-up on [facility] care unit. He remains BiPAP dependent for the most part, he was able to come off of the BiPAP support briefly to eat breakfast today. However he states he very quickly desaturates into the 70s when he is off BiPAP. Settings of 14/6 and FiO2 of 40%. He sats generally at 85% when he is on 6 L per nasal cannula, he is quickly placed back on BiPAP when she is finished with his meal, his been afebrile, hemodynamically has been stable, he appears very dyspneic with any conversation, at rest, his been for the most part bedbound. He remains on IV steroids, antibiotics and breathing treatments, she was also diagnosed with acute pulmonary emboli in his right segmental and subsegmental branches. His lower extremity Dopplers revealed DVT in his right leg. His been initially treated with IV heparin which was transitioned to Eliquis. His echocardiogram showed normal EF of 55-60%, severe enlargement of the right ventricle, severe pulmonary hypertension with PA pressure of 94.8 mmHg. Objective - Vital Signs Vital signs: Vital Signs Temp 97.8 F 04/17/21 08:00 Pulse 82 04/17/21 12:10 Resp 31 H 04/17/21 08:00 BP 129/88 04/17/21 08:00 Pulse Ox 92 L 04/17/21 08:16 Intake & Output 04/16/21 04/17/21 04/17/21 18:59 06:59 18:59 Intake Total 780 240 Output Total 1050 Balance -270 240 Weight 98.5 kg Intake: Oral 780 240 Output: Urine 1050 Other: Voiding Method Urinal Urinal # Bowel Movements 1 - Exam GENERAL EXAM: Alert, active, 60-year-old white male, dyspneic at rest, on BiPAP support with pressures of 14/6 and FiO2 of 40%, quite dyspneic, tachypneic with conversation, and at rest. HEAD: Normocephalic/atraumatic. EYES: Normal reaction of pupils, equal size. Conjunctiva pink, sclera white. NOSE: Clear with pink turbinates. THROAT: No erythema or exudates. NECK: No masses, no JVD, no thyroid enlargement, no adenopathy. CHEST: No chest wall deformity. Symmetrical expansion. LUNGS: Equal air entry with diffuse crackles at bilateral bases CVS: Regular rate and rhythm, normal S1 and S2, no gallops, no murmurs, no rubs ABDOMEN: Soft, nontender. No hepatosplenomegaly, normal bowel sounds, no guarding or rigidity. EXTREMITIES: No clubbing, no edema, no cyanosis, 2+ pulses and upper and lower extremities. MUSCULOSKELETAL: Muscle strength and tone normal. SPINE: No scoliosis or deformity SKIN: No rashes CENTRAL NERVOUS SYSTEM: Alert and oriented -3. No focal deficits, tone is normal in all 4 extremities. PSYCHIATRIC: Alert and oriented -3. Appropriate affect. Intact judgment and insight. - Labs CBC & Chem 7: 04/17/21 07:17 04/17/21 07:17 Labs: Abnormal Lab Results - Last 24 Hours (Table) 04/16/21 04/16/21 04/17/21 Range/Units 16:45 20:44 06:21 WBC (3.8-10.6) k/uL Neutrophils # (1.3-7.7) k/uL Sodium (137-145) mmol/L Creatinine (0.66-1.25) mg/dL Glucose (74-99) mg/dL POC Glucose (mg/dL) 291 H 251 H 192 H (75-99) mg/dL Calcium (8.4-10.2) mg/dL 04/17/21 04/17/21 04/17/21 Range/Units 07:17 07:17 11:49 WBC 12.6 H (3.8-10.6) k/uL Neutrophils # 10.3 H (1.3-7.7) k/uL Sodium 136 L (137-145) mmol/L Creatinine 0.64 L (0.66-1.25) mg/dL Glucose 192 H (74-99) mg/dL POC Glucose (mg/dL) 274 H (75-99) mg/dL Calcium 8.2 L (8.4-10.2) mg/dL Assessment and Plan Plan: Assessment: #1. Acute on chronic dyspnea and hypoxia, related to acute embolism, CTA chest showed segmental and subsegmental filling defects in the right lower lobe, pro- calcitonin level was negative at 0.10. #2. Pulmonary fibrosis, recently progressed #3. Chronic hypoxic respiratory failure related to COPD and pulmonary fibrosis #4. Mild lactic acidodisis, rule out sepsis #5. Former smoker, in remission for 3 years #6. Completed vaccination for COVID 19 #7. Acute right lower extremity DVT #8. Severe pulmonary hypertension with RV dysfunction, likely chronic Plan: Continue current medical treatment Continue BiPAP support Continue IV steroids, breathing treatments Continue oral anticoagulation We'll continue supportive medical treatment However overall prognosis is poor CODE STATUS is DO NOT RESUSCITATE per patient's wishes I performed a history & physical examination of the patient and discussed their management with my nurse practitioner, Maryse Becerra. I reviewed the nurse practitioner's note and agree with the documented findings and plan of care. Lung sounds are positive for diffuse rales The findings and the impression was discussed with the patient. I attest to the documentation by the nurse practit ioner. Time with Patient: Less than 30
--- NOTE | 2021-04-17 14:46 | P.PN ---
Subjective Progress Note Date: 04/17/21 Patient is a 60-year-old male with a known history of COPD, pulmonary fibrosis, chronic hypoxic respiratory failure on oxygen at 2 L via nasal cannula presents to ER with the complaints of worsening shortness of breath. According to his patient did have cough spell which usually improves but today afternoon patient became more short of breath and pulse ox was 77% given it 5 L of oxygen via nasal cannula. Patient was brought to ER. Patient is also having chest tightness/discomfort when trying to take deep breath. Cough without sputum production. No fever no chills. Patient does have nebulizer and CPAP at home. On admission patient was tachycardic tachypneic and his pulse ox 74% on room air. Patient was placed on BiPAP in the ER. Chest x-ray showed cardiomegaly with diffuse interstitial opacities more confluent in the periphery of the mid and lower lungs. Chronicity is unclear. Consider interstitial pulmonary edema, atypical pneumonia and/or pulmonary fibrosis. Possible moderate sized hiatal hernia. EKG showed normal sinus rhythm. Chest CTA showed acute PE involving the right lower lobe segmental subsegmental bronchial branches. Diffuse interstitial opacities may represent acute on chronic disease. Laboratory data showed WBC 14.1 hemoglobin 19.5 and platelets 161 BUN 13 and creatinine 0.74 lactic acid 2.7 and proBNP 3790 and procalcitonin level is 0.1 04/14/2021 Patient seen and evaluated in follow-up this morning continues to have difficulty in breathing and extremely dyspneic with minimal exertion and is becoming extremely anxious and lower oxygen saturations of 84% on 6 L nasal cannula and was placed back on BiPAP per nursing staff. Pulmonary following antonio sely. Patient did undergo chest CTA which showed a pulmonary embolism and was started on IV heparin and will continue for now. Eliquis prescription was sent to the pharmacy to verify coverage in case management made aware. White blood count slightly improved at 11.8, hemoglobin is 17.1. Patient is continued on breathing inhalational treatments along with IV Levaquin and IV steroids and will continue at this time. Patient was given a dose of IV Lasix last night with some improvement in breathing. 04/15/21 Patient is lying in the bed. Awake alert oriented 3 currently maintained on BiPAP. Patient was transitioned to 6 L oxygen with another cannula this morning but was back on BiPAP now. Next and bilateral lower extremity duplex scan showed right popliteal and femoral DVT. Echocardiogram showed ejection fraction between 60% and right ventricular is severely dilated with severe TR and pulmonary hypertension. Patient is being continued on Solu-Medrol, DuoNeb's and antibiotics, Levaquin. Heparin has been transitioned to Eliquis. pulmonary is on board. 04/16/2021 Patient is currently resting in the bed. Was on BiPAP 14 x 16 with FiO2 40%. Patient required BiPAP during lunchtime 6 L oxygen via nasal cannula. Patient was desaturating with nasal cannula. Denied any complaints of chest pain or worsening shortness of. No fever no chills. Patient is being current on Eliquis 10 mg twice daily. Laboratory data showed WBC 13.5 hemoglobin 16.5 and platelets 197, BUN 19 and creatinine 0.65 Current living current antibiotic in the form of Levaquin and IV steroids and duo nebs. Pulmonary is following. Blood sugar is 229. 04/17/2021 Patient is seen in follow-up this morning continues to be on the BiPAP as he is not tolerating nasal cannula and oxygen saturations are dropping drastically within minutes. Respiratory notified of possible replacement facemask as the one he is currently wearing is slightly small. Family at the bedside concerned about the facemask fitting. Nursing staff is aware. Bilateral nares following closely. White blood count slightly trending down at 12.6 and hemoglobin is stable at 17.3. Sodium is 136 with a potassium of 4.8 current creatinine is 0.64. Blood sugars being monitored and will continue with sliding scale and long-acting. Patient is on oral Levaquin and will continue at this time. Patient also continues with breathing inhalational treatments along with IV steroids 60 mg every 6. Review of systems: Constitutional: No reports of fatigue, fever, or chills, reports anxiousness Cardiovascular: No reports of chest pain or palpitations Respiratory: reports of shortness of breath GI: No reports of nausea, vomiting, or diarrhea : No reports of dysuria or retention Neurovascular: Reports generalized weakness All medications have been reviewed Physical exam: Patient is sitting up in the bed continues to be anxious, awake alert and oriented.. HEENT: Normocephalic. Neck is supple. Pupils reactive. Nostrils clear. Oral cavity is moist. Neck reveals no JVD, carotid bruits, or thyromegaly. CHEST EXAMINATION: Trachea is central. Symmetrical expansion. Bilateral diminished air entry. Scattered rhonchi. tachypneic CARDIAC: Normal S1, S2 with no gallops. No murmurs ABDOMEN: Soft. Bowel sounds normal. No organomegaly. No abdominal bruits. Extremities: reveal no edema. No clubbing or cyanosis Neurologically awake, alert, oriented, with well-coordinated movements. No focal deficits noted Skin: No rash or skin lesions. Psychiatric: Cooperative. Musculoskeletal: No joint swelling or deformity. Normal range of motion. Assessment and plan: Acute on chronic hypoxic respiratory failure is due to multifactorial etiology. Acute PE involving the right lower lobe segmental and subsegmental branches. Right popliteal and femoral DVT Acute COPD exacerbation Possible pneumonia with underlying pulmonary fibrosis Severe pulmonary hypertension with severe RV dilation and severe TR. Chronic hypoxic respiratory failure secondary to COPD and pulmonary fibrosis Lactic acidosis due to hypoxia Previous history of smoking GI prophylaxis DVT prophylaxis: Currently on IV heparin No code Plan: Patient is continued on BiPAP with low oxygen saturations in the 60s very quickly on 6 L via nasal cannula. Pulmonary following closely. Continue with Solu-Medrol and duo nebs. Continue with antibiotics in the form of Levaquin. Patient has been started on oral Eliquis. Continue to follow closely. Will repeat a.m. labs. Due to multiple complex medical issues, prognosis is extremely poor and quarded. Objective - Vital Signs Vital signs: Vital Signs Temp 97.9 F 04/17/21 04:39 Pulse 80 04/17/21 08:29 Resp 27 H 04/17/21 04:39 BP 143/89 04/17/21 04:39 Pulse Ox 92 L 04/17/21 08:16 Intake & Output 04/16/21 04/17/21 04/17/21 18:59 06:59 18:59 Intake Total 780 Output Total 1050 Balance -270 Weight 98.5 kg Intake: Oral 780 Output: Urine 1050 Other: Voiding Method Urinal Urinal - Labs CBC & Chem 7: 04/17/21 07:17 04/17/21 07:17 Labs: Abnormal Lab Results - Last 24 Hours (Table) 04/16/21 04/16/21 04/16/21 Range/Units 08:44 11:15 16:45 WBC 13.5 H (3.8-10.6) k/uL Neutrophils # 11.8 H (1.3-7.7) k/uL Lymphocytes # 0.9 L (1.0-4.8) k/uL Sodium (137-145) mmol/L Creatinine (0.66-1.25) mg/dL Glucose (74-99) mg/dL POC Glucose (mg/dL) 229 H 291 H (75-99) mg/dL Calcium (8.4-10.2) mg/dL 04/16/21 04/17/21 04/17/21 Range/Units 20:44 06:21 07:17 WBC 12.6 H (3.8-10.6) k/uL Neutrophils # 10.3 H (1.3-7.7) k/uL Lymphocytes # (1.0-4.8) k/uL Sodium (137-145) mmol/L Creatinine (0.66-1.25) mg/dL Glucose (74-99) mg/dL POC Glucose (mg/dL) 251 H 192 H (75-99) mg/dL Calcium (8.4-10.2) mg/dL 04/17/21 Range/Units 07:17 WBC (3.8-10.6) k/uL Neutrophils # (1.3-7.7) k/uL Lymphocytes # (1.0-4.8) k/uL Sodium 136 L (137-145) mmol/L Creatinine 0.64 L (0.66-1.25) mg/dL Glucose 192 H (74-99) mg/dL POC Glucose (mg/dL) (75-99) mg/dL Calcium 8.2 L (8.4-10.2) mg/dL
[2021-04-17 16:52] LABS: Glucose,Whole Blood 182 mg/dL (75-99)
[2021-04-17] MEDS: SODIUM CHLORIDE 0.9% 1,000 ML IV SCH (16:52)
[2021-04-17 20:24] LABS: Glucose,Whole Blood 225 mg/dL (75-99)
[2021-04-17] MEDS: INSULIN DETEMIR (LEVEMIR) 100 UNIT/ML SYR SQ SCH (21:20)
[2021-04-17] MEDS: ALPRAZolam 0.5 MG TAB PO PRN (22:51)
[2021-04-18 06:29] LABS: Glucose,Whole Blood 230 mg/dL (75-99)
[2021-04-18] MEDS: methylPREDNISolone SOD SUCCI 125 MG/2 ML VIAL IV SCH ×4 (06:49→23:33)
[2021-04-18] MEDS: PANTOPRAZOLE 40 MG TABLET PO SCH (06:50)
[2021-04-18] MEDS: INSULIN ASPART (NovoLOG) 100 UNIT/ML VIAL SQ SCH ×4 (06:50→21:54)
[2021-04-18] MEDS: IPRATROPIUM-ALBUTEROL 3 ML NEB INHALATION SCH ×3 (08:22→20:27)
[2021-04-18] MEDS: FUROSEMIDE 10 MG/ML 2 ML VIAL IV SCH ×2 (09:18→21:52)
[2021-04-18] MEDS: BENZONATATE 100 MG CAP PO SCH ×3 (09:18→21:52)
[2021-04-18] MEDS: APIXABAN 5 MG TAB PO SCH ×2 (09:18→21:52)
[2021-04-18] MEDS: LEVOFLOXACIN 750 MG TAB PO SCH (09:30)
[2021-04-18] MEDS: ALPRAZolam 0.5 MG TAB PO PRN ×2 (10:24→23:32)
--- NOTE | 2021-04-18 10:39 | CDI ---
Documentation Clarification Form Date: 04/18/2021 10:25:56 AM From: Brook GrewalBILL gurrola, CCDS Admit Date: 04/13/2021 03:02:00 PM Patient Name: Everardo Martínez Visit Number: [id number] Discharge Date: ATTENTION: The Clinical Documentation Specialists (CDI) and [facility] Coding Staff appreciate your assistance in clarifying documentation. Please respond to the clarification below the line at the bottom and electronically sign. The CDI & [facility] Coding staff will review the response and follow-up if needed. Please note: Queries are made part of the Legal Health Record. If you have any questions, please contact the author of this message via ITS. Dr. Chanda Gaitan: The patient presented with the following clinical indicators: Difficulty breathing, exertional dyspnea & chest discomfort with deep breaths, cough, minimal phlegm production. Per the 04/13 Pulmonary Consult and subsequent Progress Notes: Mild lactic acidosis, rule out Sepsis is documented. Additional clarification regarding the etiology/cause of the clinical indicators is requested. History/Risk Factors per the 04/13 H/P: COPD, Pulmonary Fibrosis, Chronic Hypoxic Respiratory Failure on Home O2 2Lnc; Former smoker. Clinical Indicators: Presented to the ED on 04/13 with SOB and chest discomfort with deep breaths. No fevers, chills or sweats. ED Clinical Impression: Acute Exacerbation COPD, Acute Respiratory Distress Syndrome, Dehydration, CHF 04/13 VS: T 97.9, P 120, R 36 (SOB, labored, Accessory use, Cough, Deep breathing, Tachypnea), BP 126/88, PO 74 RA - 50% BiPAP, BMI: 30.7 04/13 LAB: WBC 14.1, Hgb 19.5, Neut 10.5, PT 12.4, INR 1.2, APTT 23.7, CO2 18, Lactic Acid 2.7, 1.9 04/13 CXR: Cardiomegaly w/diffuse interstitial opacities, consider interstitial pulmonary edema, atypical pneumonia and/or pulmonary fibrosis. 04/13 CT Chest: Acute PE RLL segmental subsegmental branches. Treatment: 50% BiPAP, INH Duoneb 3 ml x1, IV Solumedrol 125 mg x1, IV Na Cl 1,000 mls @ 130 mls/hr q7H, IV Ativan 1 mg x1, IV Na Cl 1,000 mls @ 999 mls/hr q1H, INH Duoneb 3ml Q4H prn, IV Lasix 40 mg x1, IV Levaquin 150 mls q24H In your professional opinion, please clarify if these findings signify one of the following conditions: [ ] Sepsis POA [ ] Sepsis, Not POA [ ] Sepsis ruled out [ ] Severe Sepsis with organ failure [ ] Other, please specify [ ] Unable to determine (Template Last Reviewed: October 2020) MTDD
--- NOTE | 2021-04-18 11:11 | P.PN ---
Subjective Progress Note Date: 04/18/21 Principal diagnosis: Advanced pulmonary fibrosis 61-year-old male patient known history of COPD and advanced pulmonary fibrosis, oxygen dependent. The patient has been followed up in our office with and he has been maintained on Esbriet to 67 mg 2 tablets 3 times a day. During an earlier evaluation evaluation on office wasn't back in December 2020. At that time, his pulse ox on room air was at 77%. He was quickly placed on oxygen. Has been using his oxygen 24 7 since. He was educated to do so. He is on oxygen 2 L per minute nasal cannula. He has been also maintained on a combination of Symbicort and Ventolin rescue inhaler on an as-needed basis. He has completed his COVID vaccination. Based on the previous port function test that was done and 01/30/2019, the patient has a FVC of 80%. His diffusion capacity was a 40% and no follow-up with function tests was done since. His most recent CAT scan of the chest was done and [facility] he showed mo derate centrilobular and paraseptal emphysema and bronchiectasis in addition to interstitial pulmonary fibrosis there was moderate to severe in nature and this was done on 05/26/2020. He has other comorbidities including chronic pain and sciatica. The patient came into the emergency department this afternoon because of worsening shortness of breath and exertional dyspnea. He was having chest di scomfort when he was trying to take a deep breath. He had a cough with minimal amount of sputum production. Denies having any fever or chills. He was taking all of his home medications. No swelling in lower extremities. In the emergency, he was found that her white cell count of 14.1, hemoglobin was 19.5 consistent with chronic hypoxemia and secondary erythrocytosis. His serum bicarb is at 18, the electrodes are all within normal limits, proBNP level was 3790, liver function tests were all essentially within normal limits, lactic acid level was at 0.7, chest x-ray was consistent with interstitial fibrosis, diffuse with lower lobe and peripheral predominance. Pulse ox on room air was 74%. The patient immediately was placed on a BiPAP. He was tachycardic at time of admission with a heart rate of 120 and a respiration of 36, much improved while on the BiPAP. He was hospitalized accordingly. On today's evaluation patient is seen on selective care unit, he appears to be still quite dyspneic, however improved from yesterday's exam, he is off BiPAP support, and he is currently on 6 L of oxygen, with a pulse ox of 84-89%. he tolerates and off BiPAP support briefly and for meals, however returns to BiPAP support tolerates it quite well. His CTA chest showed evidence of pulmonary embolism in the right lower lobe, segmental and subsegmental branches. Diffuse interstitial opacities, that could represent acute on chronic disease. Patient continues on IV steroids, nebulized bronchodilators, and empiric antibiotics. No fever or chills overnight. Right-sided chest discomfort is subsided. There has been no hemoptysis, no lower extremity swelling On 04/17/2021 patient seen in follow-up on selective care unit. He remains BiPAP dependent for the most part, he was able to come off of the BiPAP support briefly to eat breakfast today. However he states he very quickly desaturates into the 70s when he is off BiPAP. Settings of 14/6 and FiO2 of 40%. He sats generally at 85% when he is on 6 L per nasal cannula, he is quickly placed back on BiPAP when she is finished with his meal, his been afebrile, hemodynamically has been stable, he appears very dyspneic with any conversation, at rest, his been for the most part bedbound. He remains on IV steroids, antibiotics and breathing treatments, she was also diagnosed with acute pulmonary emboli in his right segmental and subsegmental branches. His lower extremity Dopplers revealed DVT in his right leg. His been initially treated with IV heparin which was transitioned to Eliquis. His echocardiogram showed normal EF of 55-60%, severe enlargement of the right ventricle, severe pulmonary hypertension with PA pressure of 94.8 mmHg. The patient is seen today 04/18/2021 in follow-up on the selective care unit. He is currently sitting up in bed. He remains on BiPAP. BiPAP dependent. Settings are 14/6 at 40% FiO2 to maintain O2 saturations in the 90s. He's been afebrile. Hemodynamically stable. Blood glucose 230. He remains on DuoNeb inhalations, IV Solu-Medrol, IV diuretics. Anticoagulated with Eliquis. Antibiotics in the form of Levaquin. Objective - Vital Signs Vital signs: Vital Signs Temp 97.5 F L 04/18/21 08:00 Pulse 80 04/18/21 08:35 Resp 30 H 04/18/21 08:00 BP 124/74 04/18/21 08:00 Pulse Ox 90 L 04/18/21 08:22 Intake & Output 04/17/21 04/18/21 04/18/21 18:59 06:59 18:59 Intake Total 490 240 Output Total 1400 2450 Balance -910 -2450 240 Weight 97 kg Intake: Oral 490 240 Output: Urine 1400 2450 Other: Voiding Method Urinal Urinal # Voids 1 1 # Bowel Movements 1 - Exam GENERAL EXAM: Alert, 60-year-old male patient, on BiPAP support with pressures of 14/6 and FiO2 of 40%, quite dyspneic, tachypneic with conversation, and at rest. HEAD: Normocephalic/atraumatic. EYES: Normal reaction of pupils, equal size. Conjunctiva pink, sclera white. NOSE: Clear with pink turbinates. THROAT: No erythema or exudates. NECK: No masses, no JVD, no thyroid enlargement, no adenopathy. CHEST: No chest wall deformity. Symmetrical expansion. LUNGS: Equal air entry with diffuse crackles at bilateral bases CVS: Regular rate and rhythm, normal S1 and S2, no gallops, no murmurs, no rubs ABDOMEN: Soft, nontender. No hepatosplenomegaly, normal bowel sounds, no guarding or rigidity. EXTREMITIES: No clubbing, no edema, no cyanosis, 2+ pulses and upper and lower extremities. MUSCULOSKELETAL: Muscle strength and tone normal. SPINE: No scoliosis or deformity SKIN: No rashes CENTRAL NERVOUS SYSTEM: No focal deficits, tone is normal in all 4 extremities. PSYCHIATRIC: Alert and oriented -3. Appropriate affect. Intact judgment and insight. - Labs CBC & Chem 7: 04/17/21 07:17 04/17/21 07:17 Labs: Abnormal Lab Results - Last 24 Hours (Table) 04/17/21 04/17/21 04/17/21 Range/Units 11:49 16:50 20:23 POC Glucose (mg/dL) 274 H 182 H 225 H (75-99) mg/dL 04/18/21 Range/Units 06:27 POC Glucose (mg/dL) 230 H (75-99) mg/dL Assessment and Plan Assessment: 1 Acute on chronic dyspnea and hypoxia, related to acute embolism, CTA chest showed segmental and subsegmental filling defects in the right lower lobe, pro- calcitonin level was negative at 0.10. 2 Pulmonary fibrosis, recently progressed 3 Chronic hypoxic respiratory failure related to COPD and pulmonary fibrosis 4 Mild lactic acidodisis, rule out sepsis 5 Former smoker, in remission for 3 years 6 Completed vaccination for COVID 19 7 Acute right lower extremity DVT 8 Severe pulmonary hypertension with RV dysfunction, likely chronic Plan: The patient was seen and evaluated by Dr. Gaitan He spoke with the patient and family at the bedside Overall prognosis is quite poor He is a DO NOT RESUSCITATE/DO NOT INTUBATE CODE STATUS May consider hospice placement Continue current treatment plan for now I, the cosigning physician, performed a history & physical examination of the p atient. Lungs sounds coarse crackles in the posterior bases. Maintaining O2 saturations in the 90s on BiPAP at 40% FiO2. I discussed the assessment and plan of care with my nurse practitioner, Kiana Katz. I attest to the above note as dictated by her.
[2021-04-18 11:50] LABS: Glucose,Whole Blood 202 mg/dL (75-99)
[2021-04-18] MEDS: SODIUM CHLORIDE 0.9% 1,000 ML IV SCH (15:06)
[2021-04-18 17:02] LABS: Glucose,Whole Blood 250 mg/dL (75-99)
[2021-04-18 20:43] LABS: Glucose,Whole Blood 213 mg/dL (75-99)
[2021-04-18] MEDS: INSULIN DETEMIR (LEVEMIR) 100 UNIT/ML SYR SQ SCH (21:52)
--- NOTE | 2021-04-19 01:10 | P.PN ---
Subjective Progress Note Date: 04/18/21 Patient is a 60-year-old male with a known history of COPD, pulmonary fibrosis, chronic hypoxic respiratory failure on oxygen at 2 L via nasal cannula presents to ER with the complaints of worsening shortness of breath. According to his patient did have cough spell which usually improves but today afternoon patient became more short of breath and pulse ox was 77% given it 5 L of oxygen via nasal cannula. Patient was brought to ER. Patient is also having chest tightness/discomfort when trying to take deep breath. Cough without sputum production. No fever no chills. Patient does have nebulizer and CPAP at home. On admission patient was tachycardic tachypneic and his pulse ox 74% on room air. Patient was placed on BiPAP in the ER. Chest x-ray showed cardiomegaly with diffuse interstitial opacities more confluent in the periphery of the mid and lower lungs. Chronicity is unclear. Consider interstitial pulmonary edema, atypical pneumonia and/or pulmonary fibrosis. Possible moderate sized hiatal hernia. EKG showed normal sinus rhythm. Chest CTA showed acute PE involving the right lower lobe segmental subsegmental bronchial branches. Diffuse interstitial opacities may represent acute on chronic disease. Laboratory data showed WBC 14.1 hemoglobin 19.5 and platelets 161 BUN 13 and creatinine 0.74 lactic acid 2.7 and proBNP 3790 and procalcitonin level is 0.1 04/14/2021 Patient seen and evaluated in follow-up this morning continues to have difficulty in breathing and extremely dyspneic with minimal exertion and is becoming extremely anxious and lower oxygen saturations of 84% on 6 L nasal cannula and was placed back on BiPAP per nursing staff. Pulmonary following antonio sely. Patient did undergo chest CTA which showed a pulmonary embolism and was started on IV heparin and will continue for now. Eliquis prescription was sent to the pharmacy to verify coverage in case management made aware. White blood count slightly improved at 11.8, hemoglobin is 17.1. Patient is continued on breathing inhalational treatments along with IV Levaquin and IV steroids and will continue at this time. Patient was given a dose of IV Lasix last night with some improvement in breathing. 04/15/21 Patient is lying in the bed. Awake alert oriented 3 currently maintained on BiPAP. Patient was transitioned to 6 L oxygen with another cannula this morning but was back on BiPAP now. Next and bilateral lower extremity duplex scan showed right popliteal and femoral DVT. Echocardiogram showed ejection fraction between 60% and right ventricular is severely dilated with severe TR and pulmonary hypertension. Patient is being continued on Solu-Medrol, DuoNeb's and antibiotics, Levaquin. Heparin has been transitioned to Eliquis. pulmonary is on board. 04/16/2021 Patient is currently resting in the bed. Was on BiPAP 14 x 16 with FiO2 40%. Patient required BiPAP during lunchtime 6 L oxygen via nasal cannula. Patient was desaturating with nasal cannula. Denied any complaints of chest pain or worsening shortness of. No fever no chills. Patient is being current on Eliquis 10 mg twice daily. Laboratory data showed WBC 13.5 hemoglobin 16.5 and platelets 197, BUN 19 and creatinine 0.65 Current living current antibiotic in the form of Levaquin and IV steroids and duo nebs. Pulmonary is following. Blood sugar is 229. 04/17/2021 Patient is seen in follow-up this morning continues to be on the BiPAP as he is not tolerating nasal cannula and oxygen saturations are dropping drastically within minutes. Respiratory notified of possible replacement facemask as the one he is currently wearing is slightly small. Family at the bedside concerned about the facemask fitting. Nursing staff is aware. Bilateral nares following closely. White blood count slightly trending down at 12.6 and hemoglobin is stable at 17.3. Sodium is 136 with a potassium of 4.8 current creatinine is 0.64. Blood sugars being monitored and will continue with sliding scale and long-acting. Patient is on oral Levaquin and will continue at this time. Patient also continues with breathing inhalational treatments along with IV steroids 60 mg every 6. 04/18/2021 Patient is seen this morning with at the bedside and discussion was had in length with Dr. Gaitan at bedside to again address the extremely poor prognosis and to again recommend comfort measures with hospice. [facility] consulted and did meet with family for informational meeting and requesting follow up meeting this when children are present. Case management following. Patient is bipap dependent. Review of systems: Constitutional: No reports of fatigue, fever, or chills, reports anxiousness Cardiovascular: No reports of chest pain or palpitations Respiratory: reports of continued shortness of breath GI: No reports of nausea, vomiting, or diarrhea : No reports of dysuria or retention Neurovascular: Reports generalized weakness All medications have been reviewed Physical exam: Patient is sitting up in the bed continues to be anxious, awake alert and oriented.. HEENT: Normocephalic. Neck is supple. Pupils reactive. Nostrils clear. Oral cavity is moist. Neck reveals no JVD, carotid bruits, or thyromegaly. CHEST EXAMINATION: Trachea is central. Symmetrical expansion. Bilateral dimi nished air entry. Scattered coarse rhonchi. tachypneic CARDIAC: Normal S1, S2 with no gallops. No murmurs ABDOMEN: Soft. Bowel sounds normal. No organomegaly. No abdominal bruits. Extremities: reveal no edema. No clubbing or cyanosis Neurologically awake, alert, oriented, with well-coordinated movements. No focal deficits noted Skin: No rash or skin lesions. Psychiatric: Cooperative. Musculoskeletal: No joint swelling or deformity. Normal range of motion. Assessment and plan: Acute on chronic hypoxic respiratory failure is due to multifactorial etiology. Acute PE involving the right lower lobe segmental and subsegmental branches. Right popliteal and femoral DVT Acute COPD exacerbation Possible pneumonia with underlying pulmonary fibrosis Severe pulmonary hypertension with severe RV dilation and severe TR. Chronic hypoxic respiratory failure secondary to COPD and pulmonary fibrosis Lactic acidosis due to hypoxia Previous history of smoking GI prophylaxis DVT prophylaxis: eliquis No code Plan: Patient is continued on BiPAP and mostly bipap dependent at this point. [facility] now following with plans of possible GIP this when children are available to meet with patient and hospice. unsure and quite anxious and tearful of poor prognosis and does not feel comfortable making the decision of hospice alone. Emotional support provided. Case management following as well. Lengthy discussion was had with patient and DR. Gaitan at bedside and patient continues to demand no code status and is aware of poor prognosis. Continue with Solu-Medrol and duo nebs, levaquin, and eliquis. Will continue to monitor closely. Due to multiple complex medical issues, prognosis is extremely poor and quarded. Objective - Vital Signs Vital signs: Vital Signs Temp 97.9 F 04/18/21 04:00 Pulse 80 04/18/21 08:35 Resp 34 H 04/18/21 04:00 BP 116/75 04/18/21 04:00 Pulse Ox 90 L 04/18/21 08:22 Intake & Output 04/17/21 04/18/21 04/18/21 18:59 06:59 18:59 Intake Total 490 Output Total 1400 2450 Balance -910 -2450 Weight 97 kg Intake: Oral 490 Output: Urine 1400 2450 Other: Voiding Method Urinal Urinal # Voids 1 1 # Bowel Movements 1 - Labs CBC & Chem 7: 04/17/21 07:17 04/17/21 07:17 Labs: Abnormal Lab Results - Last 24 Hours (Table) 04/17/21 04/17/21 04/17/21 Range/Units 11:49 16:50 20:23 POC Glucose (mg/dL) 274 H 182 H 225 H (75-99) mg/dL 04/18/21 Range/Units 06:27 POC Glucose (mg/dL) 230 H (75-99) mg/dL
[2021-04-19 05:54] LABS: Glucose,Whole Blood 239 mg/dL (75-99)
[2021-04-19] MEDS: methylPREDNISolone SOD SUCCI 125 MG/2 ML VIAL IV SCH ×3 (06:52→18:03)
[2021-04-19] MEDS: PANTOPRAZOLE 40 MG TABLET PO SCH (06:52)
[2021-04-19] MEDS: INSULIN ASPART (NovoLOG) 100 UNIT/ML VIAL SQ SCH ×4 (06:54→21:32)
[2021-04-19] MEDS: IPRATROPIUM-ALBUTEROL 3 ML NEB INHALATION SCH ×3 (07:11→20:33)
[2021-04-19] MEDS: LEVOFLOXACIN 750 MG TAB PO SCH (07:54)
[2021-04-19] MEDS: FUROSEMIDE 10 MG/ML 2 ML VIAL IV SCH ×2 (07:55→21:32)
[2021-04-19] MEDS: BENZONATATE 100 MG CAP PO SCH ×3 (07:55→21:32)
[2021-04-19] MEDS: APIXABAN 5 MG TAB PO SCH ×2 (07:55→21:32)
[2021-04-19] MEDS: HYDROmorphone 1 MG/ML 1 ML SYRINGE IVP PRN ×3 (10:07→21:33)
--- NOTE | 2021-04-19 11:37 | P.PN ---
Subjective Progress Note Date: 04/19/21 Principal diagnosis: Advanced pulmonary fibrosis 61-year-old male patient known history of COPD and advanced pulmonary fibrosis, oxygen dependent. The patient has been followed up in our office with and he has been maintained on Esbriet to 67 mg 2 tablets 3 times a day. During an earlier evaluation evaluation on office wasn't back in December 2020. At that time, his pulse ox on room air was at 77%. He was quickly placed on oxygen. Has been using his oxygen 24 7 since. He was educated to do so. He is on oxygen 2 L per minute nasal cannula. He has been also maintained on a combination of Symbicort and Ventolin rescue inhaler on an as-needed basis. He has completed his COVID vaccination. Based on the previous port function test that was done and 01/30/2019, the patient has a FVC of 80%. His diffusion capacity was a 40% and no follow-up with function tests was done since. His most recent CAT scan of the chest was done and [facility] he showed mo derate centrilobular and paraseptal emphysema and bronchiectasis in addition to interstitial pulmonary fibrosis there was moderate to severe in nature and this was done on 05/26/2020. He has other comorbidities including chronic pain and sciatica. The patient came into the emergency department this afternoon because of worsening shortness of breath and exertional dyspnea. He was having chest di scomfort when he was trying to take a deep breath. He had a cough with minimal amount of sputum production. Denies having any fever or chills. He was taking all of his home medications. No swelling in lower extremities. In the emergency, he was found that her white cell count of 14.1, hemoglobin was 19.5 consistent with chronic hypoxemia and secondary erythrocytosis. His serum bicarb is at 18, the electrodes are all within normal limits, proBNP level was 3790, liver function tests were all essentially within normal limits, lactic acid level was at 0.7, chest x-ray was consistent with interstitial fibrosis, diffuse with lower lobe and peripheral predominance. Pulse ox on room air was 74%. The patient immediately was placed on a BiPAP. He was tachycardic at time of admission with a heart rate of 120 and a respiration of 36, much improved while on the BiPAP. He was hospitalized accordingly. On today's evaluation patient is seen on selective care unit, he appears to be still quite dyspneic, however improved from yesterday's exam, he is off BiPAP support, and he is currently on 6 L of oxygen, with a pulse ox of 84-89%. he tolerates and off BiPAP support briefly and for meals, however returns to BiPAP support tolerates it quite well. His CTA chest showed evidence of pulmonary embolism in the right lower lobe, segmental and subsegmental branches. Diffuse interstitial opacities, that could represent acute on chronic disease. Patient continues on IV steroids, nebulized bronchodilators, and empiric antibiotics. No fever or chills overnight. Right-sided chest discomfort is subsided. There has been no hemoptysis, no lower extremity swelling On 04/17/2021 patient seen in follow-up on selective care unit. He remains BiPAP dependent for the most part, he was able to come off of the BiPAP support briefly to eat breakfast today. However he states he very quickly desaturates into the 70s when he is off BiPAP. Settings of 14/6 and FiO2 of 40%. He sats generally at 85% when he is on 6 L per nasal cannula, he is quickly placed back on BiPAP when she is finished with his meal, his been afebrile, hemodynamically has been stable, he appears very dyspneic with any conversation, at rest, his been for the most part bedbound. He remains on IV steroids, antibiotics and breathing treatments, she was also diagnosed with acute pulmonary emboli in his right segmental and subsegmental branches. His lower extremity Dopplers revealed DVT in his right leg. His been initially treated with IV heparin which was transitioned to Eliquis. His echocardiogram showed normal EF of 55-60%, severe enlargement of the right ventricle, severe pulmonary hypertension with PA pressure of 94.8 mmHg. The patient is seen today 04/18/2021 in follow-up on the selective care unit. He is currently sitting up in bed. He remains on BiPAP. BiPAP dependent. Settings are 14/6 at 40% FiO2 to maintain O2 saturations in the 90s. He's been afebrile. Hemodynamically stable. Blood glucose 230. He remains on DuoNeb inhalations, IV Solu-Medrol, IV diuretics. Anticoagulated with Eliquis. Antibiotics in the form of Levaquin. The patient is seen today 04/19/2021 in follow-up on the selective care unit. He is currently sitting up at the bedside. Awake. Alert. Currently on 15 L high flow nasal cannula with O2 saturation in the high 80s %. He is alternating with BiPAP 14/6 at 40% FiO2. He is still having some generalized discomfort. Blood glucose 239. He remains on DuoNeb inhalations, IV Solu-Medrol, IV diuretics. Anticoagulated with Eliquis. Antibiotics in the form of Levaquin. Objective - Vital Signs Vital signs: Vital Signs Temp 97.8 F 04/19/21 07:53 Pulse 70 04/19/21 11:28 Resp 24 04/19/21 08:00 BP 123/78 04/19/21 07:53 Pulse Ox 84 L 04/19/21 07:53 Intake & Output 04/18/21 04/19/21 04/19/21 18:59 06:59 18:59 Intake Total 720 180 Output Total 700 2150 700 Balance 20 -2150 -520 Weight 97 kg Intake: Oral 720 180 Output: Urine 700 2150 700 Other: Voiding Method Urinal # Voids 1 - Exam GENERAL EXAM: Alert, pleasant 60-year-old male patient, on 15 L high flow alternating with BiPAP support with pressures of 14/6 and FiO2 of 40%, quite dyspneic, tachypneic with conversation, and at rest. HEAD: Normocephalic/atraumatic. EYES: Normal reaction of pupils, equal size. Conjunctiva pink, sclera white. NOSE: Clear with pink turbinates. THROAT: No erythema or exudates. NECK: No masses, no JVD, no thyroid enlargement, no adenopathy. CHEST: No chest wall deformity. Symmetrical expansion. LUNGS: Equal air entry with diffuse crackles at bilateral bases CVS: Regular rate and rhythm, normal S1 and S2, no gallops, no murmurs, no rubs ABDOMEN: Soft, nontender. No hepatosplenomegaly, normal bowel sounds, no guarding or rigidity. EXTREMITIES: No clubbing, no edema, no cyanosis, 2+ pulses and upper and lower extremities. MUSCULOSKELETAL: Muscle strength and tone normal. SPINE: No scoliosis or deformity SKIN: No rashes CENTRAL NERVOUS SYSTEM: No focal deficits, tone is normal in all 4 extremities. PSYCHIATRIC: Alert and oriented -3. Appropriate affect. Intact judgment and insight. - Labs CBC & Chem 7: 04/17/21 07:17 04/17/21 07:17 Labs: Abnormal Lab Results - Last 24 Hours (Table) 04/18/21 04/18/21 04/18/21 Range/Units 11:47 16:59 20:42 POC Glucose (mg/dL) 202 H 250 H 213 H (75-99) mg/dL 04/19/21 Range/Units 05:52 POC Glucose (mg/dL) 239 H (75-99) mg/dL Assessment and Plan Assessment: 1 Acute on chronic dyspnea and hypoxia, related to acute embolism, CTA chest showed segmental and subsegmental filling defects in the right lower lobe, pro- calcitonin level was negative at 0.10. 2 Pulmonary fibrosis, recently progressed 3 Chronic hypoxic respiratory failure related to COPD and pulmonary fibrosis 4 Mild lactic acidodisis, rule out sepsis 5 Former smoker, in remission for 3 years 6 Completed vaccination for COVID 19 7 Acute right lower extremity DVT 8 Severe pulmonary hypertension with RV dysfunction, likely chronic Plan: The patient was seen and evaluated by Dr. Gaitan Awaiting further family members. Plan is for possible hospice tomorrow Overall prognosis is quite poor He is a DO NOT RESUSCITATE/DO NOT INTUBATE CODE STATUS Continue current treatment plan for now I, the cosigning physician, performed a history & physical examination of the patient. Lungs sounds coarse crackles in the posterior bases. Maintaining O2 saturations in the 90s on 15 L high flow nasal cannula alternating with BiPAP at 40% FiO2. I discussed the assessment and plan of care with my nurse practi lucretia, Kiana Katz. I attest to the above note as dictated by her.
[2021-04-19 11:48] LABS: Glucose,Whole Blood 209 mg/dL (75-99)
[2021-04-19] MEDS: SODIUM CHLORIDE 0.9% 1,000 ML IV SCH (12:22)
--- NOTE | 2021-04-19 13:46 | P.PN ---
Subjective Progress Note Date: 04/19/21 Patient is a 60-year-old male with a known history of COPD, pulmonary fibrosis, chronic hypoxic respiratory failure on oxygen at 2 L via nasal cannula presents to ER with the complaints of worsening shortness of breath. According to his patient did have cough spell which usually improves but today afternoon patient became more short of breath and pulse ox was 77% given it 5 L of oxygen via nasal cannula. Patient was brought to ER. Patient is also having chest tightness/discomfort when trying to take deep breath. Cough without sputum production. No fever no chills. Patient does have nebulizer and CPAP at home. On admission patient was tachycardic tachypneic and his pulse ox 74% on room a ir. Patient was placed on BiPAP in the ER. Chest x-ray showed cardiomegaly with diffuse interstitial opacities more confluent in the periphery of the mid and lower lungs. Chronicity is unclear. Consider interstitial pulmonary edema, atypical pneumonia and/or pulmonary fibrosis. Possible moderate sized hiatal hernia. EKG showed normal sinus rhythm. Chest CTA showed acute PE involving the right lower lobe segmental subsegmental bronchial branches. Diffuse interstitial opacities may represent acute on chronic disease. Laboratory data showed WBC 14.1 hemoglobin 19.5 and platelets 161 BUN 13 and creatinine 0.74 lactic acid 2.7 and proBNP 3790 and procalcitonin level is 0.1 04/14/2021 Patient seen and evaluated in follow-up this morning continues to have difficulty in breathing and extremely dyspneic with minimal exertion and is becoming extremely anxious and lower oxygen saturations of 84% on 6 L nasal cannula and was placed back on BiPAP per nursing staff. Pulmonary following closely. Patient did undergo chest CTA which showed a pulmonary embolism and was started on IV heparin and will continue for now. Eliquis prescription was sent to the pharmacy to verify coverage in case management made aware. White blood count slightly improved at 11.8, hemoglobin is 17.1. Patient is continued on breathing inhalational treatments along with IV Levaquin and IV steroids and will continue at this time. Patient was given a dose of IV Lasix last night with some improvement in breathing. 04/15/21 Patient is lying in the bed. Awake alert oriented 3 currently maintained on BiPAP. Patient was transitioned to 6 L oxygen with another cannula this morning but was back on BiPAP now. Next and bilateral lower extremity duplex scan showed right popliteal and femoral DVT. Echocardiogram showed ejection fraction between 60% and right ventricular is severely dilated with severe TR and p ulmonary hypertension. Patient is being continued on Solu-Medrol, DuoNeb's and antibiotics, Levaquin. Heparin has been transitioned to Eliquis. pulmonary is on board. 04/16/2021 Patient is currently resting in the bed. Was on BiPAP 14 x 16 with FiO2 40%. Patient required BiPAP during lunchtime 6 L oxygen via nasal cannula. Patient was desaturating with nasal cannula. Denied any complaints of chest pain or worsening shortness of. No fever no chills. Patient is being current on Eliquis 10 mg twice daily. Laboratory data showed WBC 13.5 hemoglobin 16.5 and platelets 197, BUN 19 and creatinine 0.65 Current living current antibiotic in the form of Levaquin and IV steroids and duo nebs. Pulmonary is following. Blood sugar is 229. 04/17/2021 Patient is seen in follow-up this morning continues to be on the BiPAP as he is not tolerating nasal cannula and oxygen saturations are dropping drastically within minutes. Respiratory notified of possible replacement facemask as the one he is currently wearing is slightly small. Family at the bedside concerned about the facemask fitting. Nursing staff is aware. Bilateral nares following closely. White blood count slightly trending down at 12.6 and hemoglobin is stable at 17.3. Sodium is 136 with a potassium of 4.8 current creatinine is 0.64. Blood sugars being monitored and will continue with sliding scale and long-acting. Patient is on oral Levaquin and will continue at this time. Patient also continues with breathing inhalational treatments along with IV steroids 60 mg every 6. 04/18/2021 Patient is seen this morning with at the bedside and discussion was had in length with Dr. Gaitan at bedside to again address the extremely poor prognosis and to again recommend comfort measures with hospice. [facility] consulted and did meet with family for informational meeting and requesting follow up meeting this when children are present. Case management following. Patient is bipap dependent. 04/19/2021 Patient was evaluated this morning sitting upright in bed. Patient is on BiPAP. Respiratory therapy attempted to wean patient off the BiPAP this morning and a 15 L high flow nasal cannula without success, patient's oxygen saturation continued to drop. Patient is alert and oriented, he denies any chest pain, reports shortness of breath, reports diarrhea and cough. Patient reports a fair appetite, but states it is hard to eat. The plan is for the family to meet with hospice tomorrow when the children are available, and patient would most likely be opened to GIP. ROS Constitutional: No reports of fatigue, fever, or chills, reports anxiousness Cardiovascular: No reports of chest pain or palpitations Respiratory: reports of continued shortness of breath GI: No reports of nausea, vomiting, or diarrhea : No reports of dysuria or retention Neurovascular: Reports generalized weakness All medications have been reviewed Physical exam: Patient is sitting up in the bed continues to be anxious, awake alert and oriented.. HEENT: Normocephalic. Neck is supple. Pupils reactive. Nostrils clear. Oral cavity is moist. Neck reveals no JVD, carotid bruits, or thyromegaly. CHEST EXAMINATION: Trachea is central. Symmetrical expansion. Bilateral diminished air entry. Scattered coarse rhonchi. tachypneic CARDIAC: Normal S1, S2 with no gallops. No murmurs ABDOMEN: Soft. Bowel sounds normal. No organomegaly. No abdominal bruits. Extremities: reveal no edema. No clubbing or cyanosis Neurologically awake, alert, oriented, with well-coordinated movements. No focal deficits noted Skin: No rash or skin lesions. Psychiatric: Cooperative. Musculoskeletal: No joint swelling or deformity. Normal range of motion. Assessment and plan: Acute on chronic hypoxic respiratory failure is due to multifactorial etiology. Acute PE involving the right lower lobe segmental and subsegmental branches. Right popliteal and femoral DVT Acute COPD exacerbation Possible pneumonia with underlying pulmonary fibrosis Severe pulmonary hypertension with severe RV dilation and severe TR. Chronic hypoxic respiratory failure secondary to COPD and pulmonary fibrosis Lactic acidosis due to hypoxia Previous history of smoking GI prophylaxis DVT prophylaxis: eliquis No code Plan: Patient is continued on BiPAP and mostly bipap dependent at this point. [facility] now following with plans of possible GIP this when children are available to meet with patient and hospice. Continue with Solu-Medrol and duo nebs, levaquin, and eliquis. Will continue to monitor closely. Due to multiple complex medical issues, prognosis is extremely poor and quarded. Objective - Vital Signs Vital signs: Vital Signs Temp 97.8 F 04/19/21 07:53 Pulse 70 04/19/21 11:28 Resp 24 04/19/21 08:00 BP 123/78 04/19/21 07:53 Pulse Ox 84 L 04/19/21 07:53 Intake & Output 04/18/21 04/19/21 04/19/21 18:59 06:59 18:59 Intake Total 720 180 Output Total 700 2150 700 Balance 20 0 -520 Weight 97 kg Intake: Oral 720 180 Output: Urine 700 2150 700 Other: Voiding Method Urinal # Voids 1 - Labs CBC & Chem 7: 04/17/21 07:17 04/17/21 07:17 Labs: Abnormal Lab Results - Last 24 Hours (Table) 04/18/21 04/18/21 04/19/21 Range/Units 16:59 20:42 05:52 POC Glucose (mg/dL) 250 H 213 H 239 H (75-99) mg/dL 04/19/21 Range/Units 11:46 POC Glucose (mg/dL) 209 H (75-99) mg/dL Assessment and Plan Time with Patient: Greater than 30
[2021-04-19 16:56] LABS: Glucose,Whole Blood 214 mg/dL (75-99)
[2021-04-19 20:21] LABS: Glucose,Whole Blood 222 mg/dL (75-99)
[2021-04-19] MEDS: ALPRAZolam 0.5 MG TAB PO PRN (21:32)
[2021-04-19] MEDS: INSULIN DETEMIR (LEVEMIR) 100 UNIT/ML SYR SQ SCH (21:32)
[2021-04-20] MEDS: methylPREDNISolone SOD SUCCI 125 MG/2 ML VIAL IV SCH ×5 (00:57→22:43)
[2021-04-20 06:30] LABS: Glucose,Whole Blood 254 mg/dL (75-99)
[2021-04-20] MEDS: PANTOPRAZOLE 40 MG TABLET PO SCH (06:48)
[2021-04-20] MEDS: HYDROmorphone 1 MG/ML 1 ML SYRINGE IVP PRN ×4 (06:49→22:42)
[2021-04-20] MEDS: INSULIN ASPART (NovoLOG) 100 UNIT/ML VIAL SQ SCH ×4 (06:49→21:34)
[2021-04-20] MEDS: BENZONATATE 100 MG CAP PO SCH ×3 (08:30→20:50)
[2021-04-20] MEDS: FUROSEMIDE 10 MG/ML 2 ML VIAL IV SCH ×2 (08:30→20:50)
[2021-04-20] MEDS: LEVOFLOXACIN 750 MG TAB PO SCH (08:30)
[2021-04-20] MEDS: APIXABAN 5 MG TAB PO SCH ×2 (08:30→20:50)
[2021-04-20] MEDS: IPRATROPIUM-ALBUTEROL 3 ML NEB INHALATION SCH ×3 (09:03→19:56)
[2021-04-20 11:53] LABS: Glucose,Whole Blood 244 mg/dL (75-99)
--- NOTE | 2021-04-20 14:26 | P.PN ---
Subjective Progress Note Date: 04/20/21 Patient is a 60-year-old male with a known history of COPD, pulmonary fibrosis, chronic hypoxic respiratory failure on oxygen at 2 L via nasal cannula presents to ER with the complaints of worsening shortness of breath. According to his patient did have cough spell which usually improves but today afternoon patient became more short of breath and pulse ox was 77% given it 5 L of oxygen via nasal cannula. Patient was brought to ER. Patient is also having chest tightness/discomfort when trying to take deep breath. Cough without sputum production. No fever no chills. Patient does have nebulizer and CPAP at home. On admission patient was tachycardic tachypneic and his pulse ox 74% on room a ir. Patient was placed on BiPAP in the ER. Chest x-ray showed cardiomegaly with diffuse interstitial opacities more confluent in the periphery of the mid and lower lungs. Chronicity is unclear. Consider interstitial pulmonary edema, atypical pneumonia and/or pulmonary fibrosis. Possible moderate sized hiatal hernia. EKG showed normal sinus rhythm. Chest CTA showed acute PE involving the right lower lobe segmental subsegmental bronchial branches. Diffuse interstitial opacities may represent acute on chronic disease. Laboratory data showed WBC 14.1 hemoglobin 19.5 and platelets 161 BUN 13 and creatinine 0.74 lactic acid 2.7 and proBNP 3790 and procalcitonin level is 0.1 04/14/2021 Patient seen and evaluated in follow-up this morning continues to have difficulty in breathing and extremely dyspneic with minimal exertion and is becoming extremely anxious and lower oxygen saturations of 84% on 6 L nasal cannula and was placed back on BiPAP per nursing staff. Pulmonary following closely. Patient did undergo chest CTA which showed a pulmonary embolism and was started on IV heparin and will continue for now. Eliquis prescription was sent to the pharmacy to verify coverage in case management made aware. White blood count slightly improved at 11.8, hemoglobin is 17.1. Patient is continued on breathing inhalational treatments along with IV Levaquin and IV steroids and will continue at this time. Patient was given a dose of IV Lasix last night with some improvement in breathing. 04/15/21 Patient is lying in the bed. Awake alert oriented 3 currently maintained on BiPAP. Patient was transitioned to 6 L oxygen with another cannula this morning but was back on BiPAP now. Next and bilateral lower extremity duplex scan showed right popliteal and femoral DVT. Echocardiogram showed ejection fraction between 60% and right ventricular is severely dilated with severe TR and p ulmonary hypertension. Patient is being continued on Solu-Medrol, DuoNeb's and antibiotics, Levaquin. Heparin has been transitioned to Eliquis. pulmonary is on board. 04/16/2021 Patient is currently resting in the bed. Was on BiPAP 14 x 16 with FiO2 40%. Patient required BiPAP during lunchtime 6 L oxygen via nasal cannula. Patient was desaturating with nasal cannula. Denied any complaints of chest pain or worsening shortness of. No fever no chills. Patient is being current on Eliquis 10 mg twice daily. Laboratory data showed WBC 13.5 hemoglobin 16.5 and platelets 197, BUN 19 and creatinine 0.65 Current living current antibiotic in the form of Levaquin and IV steroids and duo nebs. Pulmonary is following. Blood sugar is 229. 04/17/2021 Patient is seen in follow-up this morning continues to be on the BiPAP as he is not tolerating nasal cannula and oxygen saturations are dropping drastically within minutes. Respiratory notified of possible replacement facemask as the one he is currently wearing is slightly small. Family at the bedside concerned about the facemask fitting. Nursing staff is aware. Bilateral nares following closely. White blood count slightly trending down at 12.6 and hemoglobin is stable at 17.3. Sodium is 136 with a potassium of 4.8 current creatinine is 0.64. Blood sugars being monitored and will continue with sliding scale and long-acting. Patient is on oral Levaquin and will continue at this time. Patient also continues with breathing inhalational treatments along with IV steroids 60 mg every 6. 04/18/2021 Patient is seen this morning with at the bedside and discussion was had in length with Dr. Gaitan at bedside to again address the extremely poor prognosis and to again recommend comfort measures with hospice. [facility] consulted and did meet with family for informational meeting and requesting follow up meeting this when children are present. Case management following. Patient is bipap dependent. 04/19/2021 Patient was evaluated this morning sitting upright in bed. Patient is on BiPAP. Respiratory therapy attempted to wean patient off the BiPAP this morning and a 15 L high flow nasal cannula without success, patient's oxygen saturation continued to drop. Patient is alert and oriented, he denies any chest pain, reports shortness of breath, reports diarrhea and cough. Patient reports a fair appetite, but states it is hard to eat. The plan is for the family to meet with hospice tomorrow when the children are available, and patient would most likely be opened to [facility]. 04/20/2021 Patient is evaluated at bedside today with family present. Plan is for hospice meeting with [facility] today regarding patients current prognosis. Patient is on 15 L high flow nasal cannula at the time of my examination with oxygen saturation of between 80-90%. Patient states that he continues to feel s hort of breath at rest and this can continue to have some intermittent chest pain related to the pulmonary embolism. Patient is receiving management in the form of IV Dilaudid. Patient is being followed closely by pulmonary services, is continued on IV Lasix IV Solu-Medrol and oral antibiotics. Patient has been transitioned to oral eliquis for that PE, DVT. Patient remains afebrile blood pressure remained stable. Plan of care pending hospice meeting. ROS Constitutional: No reports of fatigue, fever, or chills, reports anxiousness Cardiovascular: No reports of chest pain or palpitations Respiratory: reports of continued shortness of breath GI: No reports of nausea, vomiting, or diarrhea : No reports of dysuria or retention Neurovascular: Reports generalized weakness All medications have been reviewed Physical exam: Patient is sitting up in the bed continues to be anxious, awake alert and oriented.. HEENT: Normocephalic. Neck is supple. Pupils reactive. Nostrils clear. Oral cavity is moist. Neck reveals no JVD, carotid bruits, or thyromegaly. CHEST EXAMINATION: Trachea is central. Symmetrical expansion. Bilateral diminished air entry. Scattered coarse rhonchi. tachypneic CARDIAC: Normal S1, S2 with no gallops. No murmurs ABDOMEN: Soft. Bowel sounds normal. No organomegaly. No abdominal bruits. Extremities: reveal no edema. No clubbing or cyanosis Neurologically awake, alert, oriented, with well-coordinated movements. No focal deficits noted Skin: No rash or skin lesions. Psychiatric: Cooperative. Musculoskeletal: No joint swelling or deformity. Normal range of motion. Assessment and plan: Acute on chronic hypoxic respiratory failure is due to multifactorial etiology. Acute PE involving the right lower lobe segmental and subsegmental branches. On THIS. Right popliteal and femoral DVT Acute COPD exacerbation patient being treated with IV Solu Medrol and breathing treatments. Possible pneumonia with underlying pulmonary fibrosis on oral antibiotics. Severe pulmonary hypertension with severe RV dilation and severe TR. Chronic hypoxic respiratory failure secondary to COPD and pulmonary fibrosis Lactic acidosis due to hypoxia Previous history of smoking GI prophylaxis DVT prophylaxis: eliquis No code Plan: Patient is continued on BiPAP and mostly bipap dependent at this point. Patient has able to tolerate a 15 L high flow cannula for brief moments throughout the day. Patient has still been unable to ambulate up out of bed due to severe shortness of breath and oxygen desaturation. [facility] meeting has been planned for today. Continue with Solu-Medrol and duo nebs, levaquin, and eliquis. Will continue to monitor closely. Due to multiple complex medical issues, prognosis is extremely poor and quarded. Objective - Vital Signs Vital signs: Vital Signs Temp 97.8 F 04/20/21 12:00 Pulse 85 04/20/21 13:14 Resp 24 04/20/21 12:00 BP 120/73 04/20/21 12:00 Pulse Ox 90 L 04/20/21 12:00 Intake & Output 04/19/21 04/20/21 04/20/21 18:59 06:59 18:59 Intake Total 660 20 480 Output Total 700 1700 900 Balance -40 -1680 -420 Weight 96 kg Intake: IV 20 Invasive Line 1 10 Invasive Line 2 10 Oral 660 480 Output: Urine 700 1700 900 Other: Voiding Method Urinal Urinal # Voids 0 - Labs CBC & Chem 7: 04/17/21 07:17 04/17/21 07:17 Labs: Abnormal Lab Results - Last 24 Hours (Table) 04/19/21 04/19/21 04/20/21 Range/Units 16:55 20:20 06:27 POC Glucose (mg/dL) 214 H 222 H 254 H (75-99) mg/dL 04/20/21 Range/Units 11:51 POC Glucose (mg/dL) 244 H (75-99) mg/dL Assessment and Plan Time with Patient: Greater than 30
[2021-04-20 14:48] VITALS: BMI 30.3
[2021-04-20] MEDS: SODIUM CHLORIDE 0.9% 1,000 ML IV SCH (16:28)
[2021-04-20 17:01] LABS: Glucose,Whole Blood 285 mg/dL (75-99)
[2021-04-20 21:32] LABS: Glucose,Whole Blood 192 mg/dL (75-99)
[2021-04-20] MEDS: INSULIN DETEMIR (LEVEMIR) 100 UNIT/ML SYR SQ SCH (21:34)
[2021-04-20] MEDS: ALPRAZolam 0.5 MG TAB PO PRN (22:42)
[2021-04-21] MEDS: HYDROmorphone 1 MG/ML 1 ML SYRINGE IVP PRN ×6 (03:19→23:40)
[2021-04-21 06:42] LABS: Glucose,Whole Blood 168 mg/dL (75-99)
[2021-04-21] MEDS: methylPREDNISolone SOD SUCCI 125 MG/2 ML VIAL IV SCH ×4 (06:52→23:40)
[2021-04-21] MEDS: PANTOPRAZOLE 40 MG TABLET PO SCH (06:52)
[2021-04-21] MEDS: INSULIN ASPART (NovoLOG) 100 UNIT/ML VIAL SQ SCH ×4 (06:53→21:02)
[2021-04-21] MEDS: APIXABAN 5 MG TAB PO SCH (08:22)
[2021-04-21] MEDS: BENZONATATE 100 MG CAP PO SCH ×3 (08:22→21:02)
[2021-04-21] MEDS: LEVOFLOXACIN 750 MG TAB PO SCH (08:22)
[2021-04-21] MEDS: FUROSEMIDE 10 MG/ML 2 ML VIAL IV SCH ×2 (08:22→21:01)
[2021-04-21] MEDS: IPRATROPIUM-ALBUTEROL 3 ML NEB INHALATION SCH ×3 (08:29→20:16)
[2021-04-21 11:52] LABS: Glucose,Whole Blood 234 mg/dL (75-99)
--- NOTE | 2021-04-21 13:10 | P.PN ---
Subjective Progress Note Date: 04/21/21 Patient is a 60-year-old male with a known history of COPD, pulmonary fibrosis, chronic hypoxic respiratory failure on oxygen at 2 L via nasal cannula presents to ER with the complaints of worsening shortness of breath. According to his patient did have cough spell which usually improves but today afternoon patient became more short of breath and pulse ox was 77% given it 5 L of oxygen via nasal cannula. Patient was brought to ER. Patient is also having chest tightness/discomfort when trying to take deep breath. Cough without sputum production. No fever no chills. Patient does have nebulizer and CPAP at home. On admission patient was tachycardic tachypneic and his pulse ox 74% on room a ir. Patient was placed on BiPAP in the ER. Chest x-ray showed cardiomegaly with diffuse interstitial opacities more confluent in the periphery of the mid and lower lungs. Chronicity is unclear. Consider interstitial pulmonary edema, atypical pneumonia and/or pulmonary fibrosis. Possible moderate sized hiatal hernia. EKG showed normal sinus rhythm. Chest CTA showed acute PE involving the right lower lobe segmental subsegmental bronchial branches. Diffuse interstitial opacities may represent acute on chronic disease. Laboratory data showed WBC 14.1 hemoglobin 19.5 and platelets 161 BUN 13 and creatinine 0.74 lactic acid 2.7 and proBNP 3790 and procalcitonin level is 0.1 04/14/2021 Patient seen and evaluated in follow-up this morning continues to have difficulty in breathing and extremely dyspneic with minimal exertion and is becoming extremely anxious and lower oxygen saturations of 84% on 6 L nasal cannula and was placed back on BiPAP per nursing staff. Pulmonary following closely. Patient did undergo chest CTA which showed a pulmonary embolism and was started on IV heparin and will continue for now. Eliquis prescription was sent to the pharmacy to verify coverage in case management made aware. White blood count slightly improved at 11.8, hemoglobin is 17.1. Patient is continued on breathing inhalational treatments along with IV Levaquin and IV steroids and will continue at this time. Patient was given a dose of IV Lasix last night with some improvement in breathing. 04/15/21 Patient is lying in the bed. Awake alert oriented 3 currently maintained on BiPAP. Patient was transitioned to 6 L oxygen with another cannula this morning but was back on BiPAP now. Next and bilateral lower extremity duplex scan showed right popliteal and femoral DVT. Echocardiogram showed ejection fraction between 60% and right ventricular is severely dilated with severe TR and p ulmonary hypertension. Patient is being continued on Solu-Medrol, DuoNeb's and antibiotics, Levaquin. Heparin has been transitioned to Eliquis. pulmonary is on board. 04/16/2021 Patient is currently resting in the bed. Was on BiPAP 14 x 16 with FiO2 40%. Patient required BiPAP during lunchtime 6 L oxygen via nasal cannula. Patient was desaturating with nasal cannula. Denied any complaints of chest pain or worsening shortness of. No fever no chills. Patient is being current on Eliquis 10 mg twice daily. Laboratory data showed WBC 13.5 hemoglobin 16.5 and platelets 197, BUN 19 and creatinine 0.65 Current living current antibiotic in the form of Levaquin and IV steroids and duo nebs. Pulmonary is following. Blood sugar is 229. 04/17/2021 Patient is seen in follow-up this morning continues to be on the BiPAP as he is not tolerating nasal cannula and oxygen saturations are dropping drastically within minutes. Respiratory notified of possible replacement facemask as the one he is currently wearing is slightly small. Family at the bedside concerned about the facemask fitting. Nursing staff is aware. Bilateral nares following closely. White blood count slightly trending down at 12.6 and hemoglobin is stable at 17.3. Sodium is 136 with a potassium of 4.8 current creatinine is 0.64. Blood sugars being monitored and will continue with sliding scale and long-acting. Patient is on oral Levaquin and will continue at this time. Patient also continues with breathing inhalational treatments along with IV steroids 60 mg every 6. 04/18/2021 Patient is seen this morning with at the bedside and discussion was had in length with Dr. Gaitan at bedside to again address the extremely poor prognosis and to again recommend comfort measures with hospice. [facility] consulted and did meet with family for informational meeting and requesting follow up meeting this when children are present. Case management following. Patient is bipap dependent. 04/19/2021 Patient was evaluated this morning sitting upright in bed. Patient is on BiPAP. Respiratory therapy attempted to wean patient off the BiPAP this morning and a 15 L high flow nasal cannula without success, patient's oxygen saturation continued to drop. Patient is alert and oriented, he denies any chest pain, reports shortness of breath, reports diarrhea and cough. Patient reports a fair appetite, but states it is hard to eat. The plan is for the family to meet with hospice tomorrow when the children are available, and patient would most likely be opened to [facility]. 04/20/2021 Patient is evaluated at bedside today with family present. Plan is for hospice meeting with [facility] today regarding patients current prognosis. Patient is on 15 L high flow nasal cannula at the time of my examination with oxygen saturation of between 80-90%. Patient states that he continues to feel s hort of breath at rest and this can continue to have some intermittent chest pain related to the pulmonary embolism. Patient is receiving management in the form of IV Dilaudid. Patient is being followed closely by pulmonary services, is continued on IV Lasix IV Solu-Medrol and oral antibiotics. Patient has been transitioned to oral eliquis for that PE, DVT. Patient remains afebrile blood pressure remained stable. Plan of care pending hospice meeting. 04/21/2021 Patient is seen this morning with his , sister and [id number] at the bedside. Per the and patient they are currently not ready to make a decision regarding hospice services. Patient would like to be able to see ad ditional friends and family. The plan for today when the 's sister to the hospital they're going to meet with hospice services to discuss. Patient is still being followed by pulmonary services. Patient remains on IV Lasix, IV Solu-Medrol, antibiotics, breathing treatments, and remains BiPAP dependent. Patient is able to tolerate a 15 L high flow cannula for small periods of time. He still complains of feeling short of breath. Patient has a history of end- stage pulmonary fibrosis, COPD, and family and patient updated on prognosis. Patient's blood pressure remained stable at 111/69, heart rate 69. Oxygen saturation is 85% on a 15 L high flow cannula. ROS Constitutional: No reports of fatigue, fever, or chills, reports anxiousness Cardiovascular: No reports of chest pain or palpitations Respiratory: reports of continued shortness of breath GI: No reports of nausea, vomiting, or diarrhea : No reports of dysuria or retention Neurovascular: Reports generalized weakness All medications have been reviewed Physical exam: Patient is sitting up in the bed continues to be anxious, awake alert and oriented.. HEENT: Normocephalic. Neck is supple. Pupils reactive. Nostrils clear. Oral cavity is moist. Neck reveals no JVD, carotid bruits, or thyromegaly. CHEST EXAMINATION: Trachea is central. Symmetrical expansion. Bilateral diminished air entry. Scattered coarse rhonchi. tachypneic CARDIAC: Normal S1, S2 with no gallops. No murmurs ABDOMEN: Soft. Bowel sounds normal. No organomegaly. No abdominal bruits. Extremities: reveal no edema. No clubbing or cyanosis Neurologically awake, alert, oriented, with well-coordinated movements. No focal deficits noted Skin: No rash or skin lesions. Psychiatric: Cooperative. Musculoskeletal: No joint swelling or deformity. Normal range of motion. Assessment and plan: Acute on chronic hypoxic respiratory failure is due to multifactorial etiology. Acute PE involving the right lower lobe segmental and subsegmental branches. On eliquis. Right popliteal and femoral DVT - on Eliquis Acute COPD exacerbation patient being treated with IV Solu Medrol and breathing treatments. Possible pneumonia with underlying pulmonary fibrosis on oral antibiotics. Severe pulmonary hypertension with severe RV dilation and severe TR. Pt remains on IV lasix Chronic hypoxic respiratory failure secondary to COPD and pulmonary fibrosis Lactic acidosis due to hypoxia Previous history of smoking GI prophylaxis - Protonix DVT prophylaxis: eliquis No code Plan: Patient is continued on BiPAP and mostly bipap dependent at this point. Patient has able to tolerate a 15 L high flow cannula for brief moments throughout the day. Patient has still been unable to ambulate up out of bed due to severe shortness of breath and oxygen desaturation. [facility] hospice meeting has been rescheduled for today. Currently the and are not ready to make a decision, but are willing to meet with hospice to discuss their options. Continue with Solu-Medrol and duo nebs, levaquin, and eliquis. Will continue to monitor closely. Due to multiple complex medical issues, prognosis is extremely poor and quarded. Objective - Vital Signs Vital signs: Vital Signs Temp 97.8 F 04/21/21 08:20 Pulse 84 04/21/21 12:12 Resp 22 04/21/21 12:11 BP 111/69 04/21/21 12:11 Pulse Ox 85 L 04/21/21 12:11 Intake & Output 04/20/21 04/21/21 04/21/21 18:59 06:59 18:59 Intake Total 480 240 118 Output Total 1500 625 775 [facility] -[id number] -[id number] -197 Weight 96 kg 96 kg Intake: Oral 480 240 118 Output: Urine 1500 625 775 Other: Voiding Method Urinal Urinal Urinal # Voids 1 - Labs CBC & Chem 7: 04/17/21 07:17 04/17/21 07:17 Labs: Abnormal Lab Results - Last 24 Hours (Table) 04/20/21 04/20/21 04/21/21 Range/Units 16:59 21:30 06:37 POC Glucose (mg/dL) 285 H 192 H 168 H (75-99) mg/dL 04/21/21 Range/Units 11:50 POC Glucose (mg/dL) 234 H (75-99) mg/dL Assessment and Plan Time with Patient: Greater than 30
[2021-04-21] MEDS: SODIUM CHLORIDE 0.9% 1,000 ML IV SCH (16:42)
[2021-04-21 16:58] LABS: Glucose,Whole Blood 213 mg/dL (75-99)
[2021-04-21 20:53] LABS: Glucose,Whole Blood 236 mg/dL (75-99)
[2021-04-21] MEDS: INSULIN DETEMIR (LEVEMIR) 100 UNIT/ML SYR SQ SCH (21:02)
[2021-04-21] MEDS: ALPRAZolam 0.5 MG TAB PO PRN (23:40)
[2021-04-22] MEDS: HYDROmorphone 1 MG/ML 1 ML SYRINGE IVP PRN ×4 (03:59→22:38)
[2021-04-22 06:26] LABS: Glucose,Whole Blood 303 mg/dL (75-99)
[2021-04-22] MEDS: INSULIN ASPART (NovoLOG) 100 UNIT/ML VIAL SQ SCH ×4 (06:36→20:46)
[2021-04-22] MEDS: PANTOPRAZOLE 40 MG TABLET PO SCH (06:37)
[2021-04-22] MEDS: methylPREDNISolone SOD SUCCI 125 MG/2 ML VIAL IV SCH ×4 (06:37→22:38)
[2021-04-22] MEDS: IPRATROPIUM-ALBUTEROL 3 ML NEB INHALATION SCH ×3 (07:54→19:12)
[2021-04-22] MEDS: FUROSEMIDE 10 MG/ML 2 ML VIAL IV SCH ×2 (09:28→20:46)
[2021-04-22] MEDS: LEVOFLOXACIN 750 MG TAB PO SCH (09:28)
[2021-04-22] MEDS: BENZONATATE 100 MG CAP PO SCH ×3 (09:28→20:46)
[2021-04-22 12:01] LABS: Glucose,Whole Blood 303 mg/dL (75-99)
[2021-04-22] MEDS: APIXABAN 5 MG TAB PO SCH ×2 (12:07→20:46)
--- NOTE | 2021-04-22 14:52 | P.PN ---
Subjective Progress Note Date: 04/22/21 Patient is a 60-year-old male with a known history of COPD, pulmonary fibrosis, chronic hypoxic respiratory failure on oxygen at 2 L via nasal cannula presents to ER with the complaints of worsening shortness of breath. According to his patient did have cough spell which usually improves but today afternoon patient became more short of breath and pulse ox was 77% given it 5 L of oxygen via nasal cannula. Patient was brought to ER. Patient is also having chest tightness/discomfort when trying to take deep breath. Cough without sputum production. No fever no chills. Patient does have nebulizer and CPAP at home. On admission patient was tachycardic tachypneic and his pulse ox 74% on room a ir. Patient was placed on BiPAP in the ER. Chest x-ray showed cardiomegaly with diffuse interstitial opacities more confluent in the periphery of the mid and lower lungs. Chronicity is unclear. Consider interstitial pulmonary edema, atypical pneumonia and/or pulmonary fibrosis. Possible moderate sized hiatal hernia. EKG showed normal sinus rhythm. Chest CTA showed acute PE involving the right lower lobe segmental subsegmental bronchial branches. Diffuse interstitial opacities may represent acute on chronic disease. Laboratory data showed WBC 14.1 hemoglobin 19.5 and platelets 161 BUN 13 and creatinine 0.74 lactic acid 2.7 and proBNP 3790 and procalcitonin level is 0.1 04/14/2021 Patient seen and evaluated in follow-up this morning continues to have difficulty in breathing and extremely dyspneic with minimal exertion and is becoming extremely anxious and lower oxygen saturations of 84% on 6 L nasal cannula and was placed back on BiPAP per nursing staff. Pulmonary following closely. Patient did undergo chest CTA which showed a pulmonary embolism and was started on IV heparin and will continue for now. Eliquis prescription was sent to the pharmacy to verify coverage in case management made aware. White blood count slightly improved at 11.8, hemoglobin is 17.1. Patient is continued on breathing inhalational treatments along with IV Levaquin and IV steroids and will continue at this time. Patient was given a dose of IV Lasix last night with some improvement in breathing. 04/15/21 Patient is lying in the bed. Awake alert oriented 3 currently maintained on BiPAP. Patient was transitioned to 6 L oxygen with another cannula this morning but was back on BiPAP now. Next and bilateral lower extremity duplex scan showed right popliteal and femoral DVT. Echocardiogram showed ejection fraction between 60% and right ventricular is severely dilated with severe TR and p ulmonary hypertension. Patient is being continued on Solu-Medrol, DuoNeb's and antibiotics, Levaquin. Heparin has been transitioned to Eliquis. pulmonary is on board. 04/16/2021 Patient is currently resting in the bed. Was on BiPAP 14 x 16 with FiO2 40%. Patient required BiPAP during lunchtime 6 L oxygen via nasal cannula. Patient was desaturating with nasal cannula. Denied any complaints of chest pain or worsening shortness of. No fever no chills. Patient is being current on Eliquis 10 mg twice daily. Laboratory data showed WBC 13.5 hemoglobin 16.5 and platelets 197, BUN 19 and creatinine 0.65 Current living current antibiotic in the form of Levaquin and IV steroids and duo nebs. Pulmonary is following. Blood sugar is 229. 04/17/2021 Patient is seen in follow-up this morning continues to be on the BiPAP as he is not tolerating nasal cannula and oxygen saturations are dropping drastically within minutes. Respiratory notified of possible replacement facemask as the one he is currently wearing is slightly small. Family at the bedside concerned about the facemask fitting. Nursing staff is aware. Bilateral nares following closely. White blood count slightly trending down at 12.6 and hemoglobin is stable at 17.3. Sodium is 136 with a potassium of 4.8 current creatinine is 0.64. Blood sugars being monitored and will continue with sliding scale and long-acting. Patient is on oral Levaquin and will continue at this time. Patient also continues with breathing inhalational treatments along with IV steroids 60 mg every 6. 04/18/2021 Patient is seen this morning with at the bedside and discussion was had in length with Dr. Gaitan at bedside to again address the extremely poor prognosis and to again recommend comfort measures with hospice. [facility] consulted and did meet with family for informational meeting and requesting follow up meeting this when children are present. Case management following. Patient is bipap dependent. 04/19/2021 Patient was evaluated this morning sitting upright in bed. Patient is on BiPAP. Respiratory therapy attempted to wean patient off the BiPAP this morning and a 15 L high flow nasal cannula without success, patient's oxygen saturation continued to drop. Patient is alert and oriented, he denies any chest pain, reports shortness of breath, reports diarrhea and cough. Patient reports a fair appetite, but states it is hard to eat. The plan is for the family to meet with hospice tomorrow when the children are available, and patient would most likely be opened to [facility]. 04/20/2021 Patient is evaluated at bedside today with family present. Plan is for hospice meeting with [facility] today regarding patients current prognosis. Patient is on 15 L high flow nasal cannula at the time of my examination with oxygen saturation of between 80-90%. Patient states that he continues to feel s hort of breath at rest and this can continue to have some intermittent chest pain related to the pulmonary embolism. Patient is receiving management in the form of IV Dilaudid. Patient is being followed closely by pulmonary services, is continued on IV Lasix IV Solu-Medrol and oral antibiotics. Patient has been transitioned to oral eliquis for that PE, DVT. Patient remains afebrile blood pressure remained stable. Plan of care pending hospice meeting. 04/21/2021 Patient is seen this morning with his , sister and [id number] at the bedside. Per the and patient they are currently not ready to make a decision regarding hospice services. Patient would like to be able to see ad ditional friends and family. The plan for today when the 's sister to the hospital they're going to meet with hospice services to discuss. Patient is still being followed by pulmonary services. Patient remains on IV Lasix, IV Solu-Medrol, antibiotics, breathing treatments, and remains BiPAP dependent. Patient is able to tolerate a 15 L high flow cannula for small periods of time. He still complains of feeling short of breath. Patient has a history of end- stage pulmonary fibrosis, COPD, and family and patient updated on prognosis. Patient's blood pressure remained stable at 111/69, heart rate 69. Oxygen saturation is 85% on a 15 L high flow cannula. 04/22/2021 Patient is evaluated today at the bedside with family member. Patient is on the BiPAP, requesting to change the nasal cannula. Patient states that he is tolerating a 15 L nasal cannula intermittently in order to visit with family. The plan for this patient is to visit family over the weekend and will sign onto hospice Saturday morning. Patient will continue all current medications in the meantime. Patient denies chest pain, reports cough, reports shortness of breath. Patient is unable to ambulate out of bed due to a desaturation of oxygen and generalized weakness. Patient states that he did receive a bed bath today, and tolerated that okay. Vital signs remained stable patient remains afebrile heart rate sinus rhythm in 80s, blood pressure 117/65. Patient denies any further needs today. ROS Constitutional: No reports of fatigue, fever, or chills, reports anxiousness Cardiovascular: No reports of chest pain or palpitations Respiratory: reports of continued shortness of breath GI: No reports of nausea, vomiting, or diarrhea : No reports of dysuria or retention Neurovascular: Reports generalized weakness All medications have been reviewed Physical exam: Patient is sitting up in the bed continues to be anxious, awake alert and oriented.. HEENT: Normocephalic. Neck is supple. Pupils reactive. Nostrils clear. Oral cavity is moist. Neck reveals no JVD, carotid bruits, or thyromegaly. CHEST EXAMINATION: Trachea is central. Symmetrical expansion. Bilateral diminished air entry. Scattered coarse rhonchi. tachypneic CARDIAC: Normal S1, S2 with no gallops. No murmurs ABDOMEN: Soft. Bowel sounds normal. No organomegaly. No abdominal bruits. Extremities: reveal no edema. No clubbing or cyanosis Neurologically awake, alert, oriented, with well-coordinated movements. No foc al deficits noted Skin: No rash or skin lesions. Psychiatric: Cooperative. Musculoskeletal: No joint swelling or deformity. Normal range of motion. Assessment and plan: Acute on chronic hypoxic respiratory failure is due to multifactorial etiology. Patient is BiPAP dependent Acute PE involving the right lower lobe segmental and subsegmental branches. On eliquis. Right popliteal and femoral DVT - on Eliquis Acute COPD exacerbation patient being treated with IV Solu Medrol and breathing treatments. Possible pneumonia with underlying pulmonary fibrosis on oral antibiotics. Severe pulmonary hypertension with severe RV dilation and severe TR. Pt remains on IV lasix Chronic hypoxic respiratory failure secondary to COPD and pulmonary fibrosis Lactic acidosis due to hypoxia Previous history of smoking GI prophylaxis - Protonix DVT prophylaxis: eliquis No code Plan: Patient is continued on BiPAP and mostly bipap dependent at this point. Patient has able to tolerate a 15 L high flow cannula for brief moments throughout the day. Patient has still been unable to ambulate up out of bed due to severe shortness of breath and oxygen desaturation. Continue with Solu-Medrol and duo pete chaudhary and kenneth. Will continue to monitor closely. Due to multiple complex medical issues, prognosis is extremely poor and quarded. Patient's plan is to visit with family members over the weekend, and patient will sign with hospice Saturday morning. Continue all current medications, cardiology has signed off at this time. No further recommendations. Objective - Vital Signs Vital signs: Vital Signs Temp 97.3 F L 04/22/21 08:00 Pulse 80 04/22/21 11:31 Resp 20 04/22/21 08:00 BP 117/65 04/22/21 08:00 Pulse Ox 88 L 04/22/21 08:00 Intake & Output 04/21/21 04/22/21 04/22/21 18:59 06:59 18:59 Intake Total 476 480 Output Total 775 2125 1175 Balance -299 -2125 -695 Weight 99 kg Intake: Oral 476 480 Output: Urine 775 2125 1175 Other: Voiding Method Urinal Urinal - Labs CBC & Chem 7: 04/17/21 07:17 04/17/21 07:17 Labs: Abnormal Lab Results - Last 24 Hours (Table) 04/21/21 04/21/21 04/22/21 Range/Units 16:55 20:51 06:25 POC Glucose (mg/dL) 213 H 236 H 303 H (75-99) mg/dL 04/22/21 Range/Units 12:00 POC Glucose (mg/dL) 303 H (75-99) mg/dL Assessment and Plan Time with Patient: Greater than 30
[2021-04-22] MEDS: SODIUM CHLORIDE 0.9% 1,000 ML IV SCH (15:25)
[2021-04-22 17:00] LABS: Glucose,Whole Blood 205 mg/dL (75-99)
[2021-04-22 19:39] LABS: Glucose,Whole Blood 208 mg/dL (75-99)
[2021-04-22] MEDS: INSULIN DETEMIR (LEVEMIR) 100 UNIT/ML SYR SQ SCH (20:56)
[2021-04-22] MEDS: ALPRAZolam 0.5 MG TAB PO PRN (22:38)
[2021-04-23] MEDS: HYDROmorphone 1 MG/ML 1 ML SYRINGE IVP PRN ×5 (03:23→22:26)
[2021-04-23 05:45] LABS: Glucose,Whole Blood 212 mg/dL (75-99)
[2021-04-23] MEDS: methylPREDNISolone SOD SUCCI 125 MG/2 ML VIAL IV SCH ×3 (06:08→17:10)
[2021-04-23] MEDS: PANTOPRAZOLE 40 MG TABLET PO SCH (06:08)
[2021-04-23] MEDS: INSULIN ASPART (NovoLOG) 100 UNIT/ML VIAL SQ SCH ×4 (06:08→21:01)
[2021-04-23] MEDS: BENZONATATE 100 MG CAP PO SCH ×3 (08:09→21:01)
[2021-04-23] MEDS: APIXABAN 5 MG TAB PO SCH ×2 (08:09→21:01)
[2021-04-23] MEDS: FUROSEMIDE 10 MG/ML 2 ML VIAL IV SCH ×2 (08:09→21:01)
[2021-04-23] MEDS: LEVOFLOXACIN 750 MG TAB PO SCH (08:09)
[2021-04-23] MEDS: IPRATROPIUM-ALBUTEROL 3 ML NEB INHALATION SCH ×3 (08:21→20:30)
[2021-04-23 12:10] LABS: Glucose,Whole Blood 347 mg/dL (75-99)
[2021-04-23] MEDS: SODIUM CHLORIDE 0.9% 1,000 ML IV SCH (12:33)
--- NOTE | 2021-04-23 13:59 | P.PN ---
Subjective Progress Note Date: 04/23/21 Patient is a 60-year-old male with a known history of COPD, pulmonary fibrosis, chronic hypoxic respiratory failure on oxygen at 2 L via nasal cannula presents to ER with the complaints of worsening shortness of breath. According to his patient did have cough spell which usually improves but today afternoon patient became more short of breath and pulse ox was 77% given it 5 L of oxygen via nasal cannula. Patient was brought to ER. Patient is also having chest tightness/discomfort when trying to take deep breath. Cough without sputum production. No fever no chills. Patient does have nebulizer and CPAP at home. On admission patient was tachycardic tachypneic and his pulse ox 74% on room a ir. Patient was placed on BiPAP in the ER. Chest x-ray showed cardiomegaly with diffuse interstitial opacities more confluent in the periphery of the mid and lower lungs. Chronicity is unclear. Consider interstitial pulmonary edema, atypical pneumonia and/or pulmonary fibrosis. Possible moderate sized hiatal hernia. EKG showed normal sinus rhythm. Chest CTA showed acute PE involving the right lower lobe segmental subsegmental bronchial branches. Diffuse interstitial opacities may represent acute on chronic disease. Laboratory data showed WBC 14.1 hemoglobin 19.5 and platelets 161 BUN 13 and creatinine 0.74 lactic acid 2.7 and proBNP 3790 and procalcitonin level is 0.1 04/14/2021 Patient seen and evaluated in follow-up this morning continues to have difficulty in breathing and extremely dyspneic with minimal exertion and is becoming extremely anxious and lower oxygen saturations of 84% on 6 L nasal cannula and was placed back on BiPAP per nursing staff. Pulmonary following closely. Patient did undergo chest CTA which showed a pulmonary embolism and was started on IV heparin and will continue for now. Eliquis prescription was sent to the pharmacy to verify coverage in case management made aware. White blood count slightly improved at 11.8, hemoglobin is 17.1. Patient is continued on breathing inhalational treatments along with IV Levaquin and IV steroids and will continue at this time. Patient was given a dose of IV Lasix last night with some improvement in breathing. 04/15/21 Patient is lying in the bed. Awake alert oriented 3 currently maintained on BiPAP. Patient was transitioned to 6 L oxygen with another cannula this morning but was back on BiPAP now. Next and bilateral lower extremity duplex scan showed right popliteal and femoral DVT. Echocardiogram showed ejection fraction between 60% and right ventricular is severely dilated with severe TR and p ulmonary hypertension. Patient is being continued on Solu-Medrol, DuoNeb's and antibiotics, Levaquin. Heparin has been transitioned to Eliquis. pulmonary is on board. 04/16/2021 Patient is currently resting in the bed. Was on BiPAP 14 x 16 with FiO2 40%. Patient required BiPAP during lunchtime 6 L oxygen via nasal cannula. Patient was desaturating with nasal cannula. Denied any complaints of chest pain or worsening shortness of. No fever no chills. Patient is being current on Eliquis 10 mg twice daily. Laboratory data showed WBC 13.5 hemoglobin 16.5 and platelets 197, BUN 19 and creatinine 0.65 Current living current antibiotic in the form of Levaquin and IV steroids and duo nebs. Pulmonary is following. Blood sugar is 229. 04/17/2021 Patient is seen in follow-up this morning continues to be on the BiPAP as he is not tolerating nasal cannula and oxygen saturations are dropping drastically within minutes. Respiratory notified of possible replacement facemask as the one he is currently wearing is slightly small. Family at the bedside concerned about the facemask fitting. Nursing staff is aware. Bilateral nares following closely. White blood count slightly trending down at 12.6 and hemoglobin is stable at 17.3. Sodium is 136 with a potassium of 4.8 current creatinine is 0.64. Blood sugars being monitored and will continue with sliding scale and long-acting. Patient is on oral Levaquin and will continue at this time. Patient also continues with breathing inhalational treatments along with IV steroids 60 mg every 6. 04/18/2021 Patient is seen this morning with at the bedside and discussion was had in length with Dr. Gaitan at bedside to again address the extremely poor prognosis and to again recommend comfort measures with hospice. [facility] consulted and did meet with family for informational meeting and requesting follow up meeting this when children are present. Case management following. Patient is bipap dependent. 04/19/2021 Patient was evaluated this morning sitting upright in bed. Patient is on BiPAP. Respiratory therapy attempted to wean patient off the BiPAP this morning and a 15 L high flow nasal cannula without success, patient's oxygen saturation continued to drop. Patient is alert and oriented, he denies any chest pain, reports shortness of breath, reports diarrhea and cough. Patient reports a fair appetite, but states it is hard to eat. The plan is for the family to meet with hospice tomorrow when the children are available, and patient would most likely be [facility] to [facility]. 04/20/2021 Patient is evaluated at bedside today with family present. Plan is for hospice meeting with [facility] today regarding patients current prognosis. Patient is on 15 L high flow nasal cannula at the time of my examination with oxygen saturation of between 80-90%. Patient states that he continues to feel s hort of breath at rest and this can continue to have some intermittent chest pain related to the pulmonary embolism. Patient is receiving management in the form of IV Dilaudid. Patient is being followed closely by pulmonary services, is continued on IV Lasix IV Solu-Medrol and oral antibiotics. Patient has been transitioned to oral eliquis for that PE, DVT. Patient remains afebrile blood pressure remained stable. Plan of care pending hospice meeting. 04/21/2021 Patient is seen this morning with his , sister and [id number] at the bedside. Per the and patient they are currently not ready to make a decision regarding hospice services. Patient would like to be able to see ad ditional friends and family. The plan for today when the 's sister to the hospital they're going to meet with hospice services to discuss. Patient is still being followed by pulmonary services. Patient remains on IV Lasix, IV Solu-Medrol, antibiotics, breathing treatments, and remains BiPAP dependent. Patient is able to tolerate a 15 L high flow cannula for small periods of time. He still complains of feeling short of breath. Patient has a history of end- stage pulmonary fibrosis, COPD, and family and patient updated on prognosis. Patient's blood pressure remained stable at 111/69, heart rate 69. Oxygen saturation is 85% on a 15 L high flow cannula. 04/22/2021 Patient is evaluated today at the bedside with family member. Patient is on the BiPAP, requesting to change the nasal cannula. Patient states that he is tolerating a 15 L nasal cannula intermittently in order to visit with family. The plan for this patient is to visit family over the weekend and will sign onto hospice Min morning. Patient will continue all current medications in the meantime. Patient denies chest pain, reports cough, reports shortness of breath. Patient is unable to ambulate out of bed due to a desaturation of oxygen and generalized weakness. Patient states that he did receive a bed bath today, and tolerated that okay. Vital signs remained stable patient remains afebrile heart rate sinus rhythm in 80s, blood pressure 117/65. Patient denies any further needs today. 04/23/2021 Patient continues to be primarily bedrest, patient does not tolerate ambulation. Patient maintains mostly BiPAP dependent, on 15 L nasal cannula with oxygen saturation between 83 date 9%. Patient states that he is ready for hospice he said he has comes to terms with her and the plan is to initiate hospice on Saturday. Patient states that his like to prolong this long as possible, however he states that he is ultimately ready. During this hospital stay, patient can be maintained on IV steroids, IV Lasix, all liquids, Xanax as needed, and breathing treatments and insulin coverage. Pulmonary has signed off at this time. There are no further workups ordered. Patient reports her and breath, cough, generalized pain. Patient continues on IV Dilaudid for pain management. ROS Constitutional: No reports of fatigue, fever, or chills, reports anxiousness Cardiovascular: No reports of chest pain or palpitations Respiratory: reports of continued shortness of breath GI: No reports of nausea, vomiting, or diarrhea : No reports of dysuria or retention Neurovascular: Reports generalized weakness All medications have been reviewed Physical exam: Patient is sitting up in the bed continues to be anxious, awake alert and oriented.. HEENT: Normocephalic. Neck is supple. Pupils reactive. Nostrils clear. Oral cavity is moist. Neck reveals no JVD, carotid bruits, or thyromegaly. CHEST EXAMINATION: Trachea is central. Symmetrical expansion. Bilateral diminished air entry. Scattered coarse rhonchi. tachypneic CARDIAC: Normal S1, S2 with no gallops. No murmurs ABDOMEN: Soft. Bowel sounds normal. No organomegaly. No abdominal bruits. Extremities: reveal no edema. No clubbing or cyanosis Neurologically awake, alert, oriented, with well-coordinated movements. No fo anca deficits noted Skin: No rash or skin lesions. Psychiatric: Cooperative. Musculoskeletal: No joint swelling or deformity. Normal range of motion. Assessment and plan: Acute on chronic hypoxic respiratory failure is due to multifactorial etiology. Patient is BiPAP dependent Acute PE involving the right lower lobe segmental and subsegmental branches. On eliquis. Right popliteal and femoral DVT - on Eliquis Acute COPD exacerbation patient being treated with IV Solu Medrol and breathing treatments. Possible pneumonia with underlying pulmonary fibrosis on oral antibiotics. Severe pulmonary hypertension with severe RV dilation and severe TR. Pt remains on IV lasix Chronic hypoxic respiratory failure secondary to COPD and pulmonary fibrosis Lactic acidosis due to hypoxia Previous history of smoking GI prophylaxis - Protonix DVT prophylaxis: eliquis No code Plan: Patient is continued on BiPAP and mostly bipap dependent at this point. Patient has able to tolerate a 15 L high flow cannula for brief moments throughout the day. Patient has still been unable to ambulate up out of bed due to severe shortness of breath and oxygen desaturation. Continue with Solu-Medrol and duo nebs, levaquin, and eliquis. Will continue to monitor closely. Due to multiple complex medical issues, prognosis is extremely poor and quarded. Patient states that he will sign onto hospice on Saturday. Patient states that his does continue to try and prolong the hospital sign-on. He states that she does not feel ready. However patient states that he is indeed ready for hospice on Saturday. Continue all current medications, cardiology has signed off at this time. Pulmonary services has signed off at this time as well. Continue supportive care. Objective - Vital Signs Vital signs: Vital Signs Temp 97.0 F L 04/23/21 11:10 Pulse 82 04/23/21 12:20 Resp 24 04/23/21 11:10 BP 105/65 04/23/21 11:10 Pulse Ox 88 L 04/23/21 11:10 Intake & Output 04/22/21 04/23/21 04/23/21 18:59 06:59 18:59 Intake Total 700 220 Output Total 1175 1200 Balance -475 -1200 220 Weight 93 kg Intake: Oral 700 220 Output: Urine 1175 1200 Other: Voiding Method Urinal Urinal # Voids 1 - Labs CBC & Chem 7: 04/17/21 07:17 04/17/21 07:17 Labs: Abnormal Lab Results - Last 24 Hours (Table) 04/22/21 04/22/21 04/23/21 Range/Units 16:59 19:37 05:44 POC Glucose (mg/dL) 205 H 208 H 212 H (75-99) mg/dL 04/23/21 Range/Units 12:08 POC Glucose (mg/dL) 347 H (75-99) mg/dL Assessment and Plan Time with Patient: Greater than 30
[2021-04-23 16:58] LABS: Glucose,Whole Blood 239 mg/dL (75-99)
[2021-04-23 20:07] LABS: Glucose,Whole Blood 168 mg/dL (75-99)
[2021-04-23] MEDS: INSULIN DETEMIR (LEVEMIR) 100 UNIT/ML SYR SQ SCH (21:02)
[2021-04-23] MEDS: ALPRAZolam 0.5 MG TAB PO PRN (22:26)
[2021-04-24] MEDS: methylPREDNISolone SOD SUCCI 125 MG/2 ML VIAL IV SCH ×4 (00:02→16:52)
[2021-04-24] MEDS: HYDROmorphone 1 MG/ML 1 ML SYRINGE IVP PRN ×5 (03:15→22:35)
[2021-04-24 06:00] LABS: Glucose,Whole Blood 286 mg/dL (75-99)
[2021-04-24] MEDS: PANTOPRAZOLE 40 MG TABLET PO SCH (06:32)
[2021-04-24] MEDS: INSULIN ASPART (NovoLOG) 100 UNIT/ML VIAL SQ SCH ×4 (06:33→20:34)
[2021-04-24] MEDS: IPRATROPIUM-ALBUTEROL 3 ML NEB INHALATION SCH ×3 (08:09→20:45)
[2021-04-24] MEDS: FUROSEMIDE 10 MG/ML 2 ML VIAL IV SCH ×2 (08:36→20:34)
[2021-04-24] MEDS: APIXABAN 5 MG TAB PO SCH ×2 (08:36→20:35)
[2021-04-24] MEDS: BENZONATATE 100 MG CAP PO SCH ×3 (08:36→22:35)
[2021-04-24 11:33] LABS: Glucose,Whole Blood 344 mg/dL (75-99)
--- NOTE | 2021-04-24 13:22 | P.PN ---
Subjective Progress Note Date: 04/24/21 Patient is a 60-year-old male with a known history of COPD, pulmonary fibrosis, chronic hypoxic respiratory failure on oxygen at 2 L via nasal cannula presents to ER with the complaints of worsening shortness of breath. According to his patient did have cough spell which usually improves but today afternoon patient became more short of breath and pulse ox was 77% given it 5 L of oxygen via nasal cannula. Patient was brought to ER. Patient is also having chest tightness/discomfort when trying to take deep breath. Cough without sputum production. No fever no chills. Patient does have nebulizer and CPAP at home. On admission patient was tachycardic tachypneic and his pulse ox 74% on room a ir. Patient was placed on BiPAP in the ER. Chest x-ray showed cardiomegaly with diffuse interstitial opacities more confluent in the periphery of the mid and lower lungs. Chronicity is unclear. Consider interstitial pulmonary edema, atypical pneumonia and/or pulmonary fibrosis. Possible moderate sized hiatal hernia. EKG showed normal sinus rhythm. Chest CTA showed acute PE involving the right lower lobe segmental subsegmental bronchial branches. Diffuse interstitial opacities may represent acute on chronic disease. Laboratory data showed WBC 14.1 hemoglobin 19.5 and platelets 161 BUN 13 and creatinine 0.74 lactic acid 2.7 and proBNP 3790 and procalcitonin level is 0.1 04/14/2021 Patient seen and evaluated in follow-up this morning continues to have difficulty in breathing and extremely dyspneic with minimal exertion and is becoming extremely anxious and lower oxygen saturations of 84% on 6 L nasal cannula and was placed back on BiPAP per nursing staff. Pulmonary following closely. Patient did undergo chest CTA which showed a pulmonary embolism and was started on IV heparin and will continue for now. Eliquis prescription was sent to the pharmacy to verify coverage in case management made aware. White blood count slightly improved at 11.8, hemoglobin is 17.1. Patient is continued on breathing inhalational treatments along with IV Levaquin and IV steroids and will continue at this time. Patient was given a dose of IV Lasix last night with some improvement in breathing. 04/15/21 Patient is lying in the bed. Awake alert oriented 3 currently maintained on BiPAP. Patient was transitioned to 6 L oxygen with another cannula this morning but was back on BiPAP now. Next and bilateral lower extremity duplex scan showed right popliteal and femoral DVT. Echocardiogram showed ejection fraction between 60% and right ventricular is severely dilated with severe TR and p ulmonary hypertension. Patient is being continued on Solu-Medrol, DuoNeb's and antibiotics, Levaquin. Heparin has been transitioned to Eliquis. pulmonary is on board. 04/16/2021 Patient is currently resting in the bed. Was on BiPAP 14 x 16 with FiO2 40%. Patient required BiPAP during lunchtime 6 L oxygen via nasal cannula. Patient was desaturating with nasal cannula. Denied any complaints of chest pain or worsening shortness of. No fever no chills. Patient is being current on Eliquis 10 mg twice daily. Laboratory data showed WBC 13.5 hemoglobin 16.5 and platelets 197, BUN 19 and creatinine 0.65 Current living current antibiotic in the form of Levaquin and IV steroids and duo nebs. Pulmonary is following. Blood sugar is 229. 04/17/2021 Patient is seen in follow-up this morning continues to be on the BiPAP as he is not tolerating nasal cannula and oxygen saturations are dropping drastically within minutes. Respiratory notified of possible replacement facemask as the one he is currently wearing is slightly small. Family at the bedside concerned about the facemask fitting. Nursing staff is aware. Bilateral nares following closely. White blood count slightly trending down at 12.6 and hemoglobin is stable at 17.3. Sodium is 136 with a potassium of 4.8 current creatinine is 0.64. Blood sugars being monitored and will continue with sliding scale and long-acting. Patient is on oral Levaquin and will continue at this time. Patient also continues with breathing inhalational treatments along with IV steroids 60 mg every 6. 04/18/2021 Patient is seen this morning with at the bedside and discussion was had in length with Dr. Gaitan at bedside to again address the extremely poor prognosis and to again recommend comfort measures with hospice. [facility] consulted and did meet with family for informational meeting and requesting follow up meeting this when children are present. Case management following. Patient is bipap dependent. 04/19/2021 Patient was evaluated this morning sitting upright in bed. Patient is on BiPAP. Respiratory therapy attempted to wean patient off the BiPAP this morning and a 15 L high flow nasal cannula without success, patient's oxygen saturation continued to drop. Patient is alert and oriented, he denies any chest pain, reports shortness of breath, reports diarrhea and cough. Patient reports a fair appetite, but states it is hard to eat. The plan is for the family to meet with hospice tomorrow when the children are available, and patient would most likely be opened to [place]. 04/20/2021 Patient is evaluated at bedside today with family present. Plan is for hospice meeting with [facility] today regarding patients current prognosis. Patient is on 15 L high flow nasal cannula at the time of my examination with oxygen saturation of between 80-90%. Patient states that he continues to feel s hort of breath at rest and this can continue to have some intermittent chest pain related to the pulmonary embolism. Patient is receiving management in the form of IV Dilaudid. Patient is being followed closely by pulmonary services, is continued on IV Lasix IV Solu-Medrol and oral antibiotics. Patient has been transitioned to oral eliquis for that PE, DVT. Patient remains afebrile blood pressure remained stable. Plan of care pending hospice meeting. 04/21/2021 Patient is seen this morning with his , sister and [id number] at the bedside. Per the and patient they are currently not ready to make a decision regarding hospice services. Patient would like to be able to see ad ditional friends and family. The plan for today when the 's sister to the hospital they're going to meet with hospice services to discuss. Patient is still being followed by pulmonary services. Patient remains on IV Lasix, IV Solu-Medrol, antibiotics, breathing treatments, and remains BiPAP dependent. Patient is able to tolerate a 15 L high flow cannula for small periods of time. He still complains of feeling short of breath. Patient has a history of end- stage pulmonary fibrosis, COPD, and family and patient updated on prognosis. Patient's blood pressure remained stable at 111/69, heart rate 69. Oxygen saturation is 85% on a 15 L high flow cannula. 04/22/2021 Patient is evaluated today at the bedside with family member. Patient is on the BiPAP, requesting to change the nasal cannula. Patient states that he is tolerating a 15 L nasal cannula intermittently in order to visit with family. The plan for this patient is to visit family over the weekend and will sign onto hospice Min morning. Patient will continue all current medications in the meantime. Patient denies chest pain, reports cough, reports shortness of breath. Patient is unable to ambulate out of bed due to a desaturation of oxygen and generalized weakness. Patient states that he did receive a bed bath today, and tolerated that okay. Vital signs remained stable patient remains afebrile heart rate sinus rhythm in 80s, blood pressure 117/65. Patient denies any further needs today. 04/23/2021 Patient continues to be primarily bedrest, patient does not tolerate ambulation. Patient maintains mostly BiPAP dependent, on 15 L nasal cannula with oxygen saturation between 83 date 89%. Patient states that he is ready for hospice he said he has comes to terms with her and the plan is to initiate hospice on Saturday. Patient states that his like to prolong this long as possible, however he states that he is ultimately ready. During this hospital stay, patient can be maintained on IV steroids, IV Lasix, all liquids, Xanax as needed, and breathing treatments and insulin coverage. Pulmonary has signed off at this time. There are no further workups ordered. Patient reports her and breath, cough, generalized pain. Patient continues on IV Dilaudid for pain management. 04/24/2021 Patient continues to be poorly bedrest, primarily BiPAP dependent. Patient on a 15 L nasal cannula, oxygen saturation between 83-89%. Patient continues to deny, chest pain, reports sugars of breath, cough. Patient is still maintained on IV steroids, IV Lasix, Xanax as needed and breathing treatments insulin coverage. Pulmonary services has signed off at this time in this patient. Continues on IV Dilaudid for pain management. Patient is a no code at this time. Multiple discussions have been had the bedside with patient and his regarding the need for hospice services due to [id number]. Patient is not a candidate for any further treatments regarding his end-stage pulmonary fibrosis, COPD. In addition patient is on eliquis for an acute PE. Per patient he is ready for hospice sign-on on Saturday. If this does not happen on Saturday, further discussion will need to be had with the patient and family regarding his plan of care. ROS Constitutional: No reports of fatigue, fever, or chills, reports anxiousness Cardiovascular: No reports of chest pain or palpitations Respiratory: reports of continued shortness of breath GI: No reports of nausea, vomiting, or diarrhea : No reports of dysuria or retention Neurovascular: Reports generalized weakness All medications have been reviewed Physical exam: Patient is sitting up in the bed continues to be anxious, awake alert and oriented.. HEENT: Normocephalic. Neck is supple. Pupils reactive. Nostrils clear. Oral cavity is moist. Neck reveals no JVD, carotid bruits, or thyromegaly. CHEST EXAMINATION: Trachea is central. Symmetrical expansion. Bilateral diminished air entry. Scattered coarse rhonchi. tachypneic CARDIAC: Normal S1, S2 with no gallops. No murmurs ABDOMEN: Soft. Bowel sounds normal. No organomegaly. No abdominal bruits. Extremities: reveal no edema. No clubbing or cyanosis Neurologically awake, alert, oriented, with well-coordinated movements. No focal deficits noted Skin: No rash or skin lesions. Psychiatric: Cooperative. Musculoskeletal: No joint swelling or deformity. Normal range of motion. Assessment and plan: Acute on chronic hypoxic respiratory failure is due to multifactorial etiology. Patient is BiPAP dependent Acute PE involving the right lower lobe segmental and subsegmental branches. On eliquis. Right popliteal and femoral DVT - on Eliquis Acute COPD exacerbation patient being treated with IV Solu Medrol and breathing treatments. Possible pneumonia with underlying pulmonary fibrosis on oral antibiotics. Severe pulmonary hypertension with severe RV dilation and severe TR. Pt remains on IV lasix Chronic hypoxic respiratory failure secondary to COPD and pulmonary fibrosis Lactic acidosis due to hypoxia Previous history of smoking GI prophylaxis - Protonix DVT prophylaxis: eliquis No code Plan: Patient is continued on BiPAP and mostly bipap dependent at this point. Patient has able to tolerate a 15 L high flow cannula for brief moments throughout the day. Patient has still been unable to ambulate up out of bed due to severe shortness of breath and oxygen desaturation. Continue with Solu-Medrol and duo nebs, levaquin, and eliquis. Will continue to monitor closely. Due to multiple complex medical issues, prognosis is extremely poor and quarded. Patient states that he will sign onto hospice on Saturday. Continue all current medications. Pulmonary services has signed off at this time as well. Continue supportive care. Objective - Vital Signs Vital signs: Vital Signs Temp 97.8 F 04/24/21 11:37 Pulse 87 04/24/21 13:09 Resp 24 04/24/21 11:37 BP 109/69 04/24/21 11:37 Pulse Ox 88 L 04/24/21 13:09 Intake & Output 04/23/21 04/24/21 04/24/21 18:59 06:59 18:59 Intake Total 962 240 Output Total 800 1500 825 Balance 162 -1500 -585 Weight 94 kg Intake: Intake, IV Titration 40 Amount Sodium Chloride 0.9% 1, 40 000 ml @ 10 mls/hr IV . Q24H [facility] Rx#:[id number] Oral 922 240 Output: Urine 800 1500 825 Other: Voiding Method Urinal Urinal # Voids 1 1 # Bowel Movements 1 - Labs CBC & Chem 7: 04/17/21 07:17 04/17/21 07:17 Labs: Abnormal Lab Results - Last 24 Hours (Table) 04/23/21 04/23/21 04/24/21 Range/Units 16:56 20:06 05:58 POC Glucose (mg/dL) 239 H 168 H 286 H (75-99) mg/dL 04/24/21 Range/Units 11:32 POC Glucose (mg/dL) 344 H (75-99) mg/dL Assessment and Plan Time with Patient: Greater than 30
[2021-04-24] MEDS: SODIUM CHLORIDE 0.9% 1,000 ML IV SCH (16:22)
[2021-04-24 16:37] LABS: Glucose,Whole Blood 354 mg/dL (75-99)
[2021-04-24] MEDS: IPRATROPIUM-ALBUTEROL 3 ML NEB INHALATION PRN (17:22)
[2021-04-24 20:29] LABS: Glucose,Whole Blood 298 mg/dL (75-99)
[2021-04-24] MEDS: INSULIN DETEMIR (LEVEMIR) 100 UNIT/ML SYR SQ SCH (20:35)
[2021-04-24] MEDS: ALPRAZolam 0.5 MG TAB PO PRN (22:35)
[2021-04-25] MEDS: methylPREDNISolone SOD SUCCI 125 MG/2 ML VIAL IV SCH ×4 (01:31→17:21)
[2021-04-25] MEDS: HYDROmorphone 1 MG/ML 1 ML SYRINGE IVP PRN ×4 (03:57→21:56)
[2021-04-25 06:01] LABS: Glucose,Whole Blood 266 mg/dL (75-99)
[2021-04-25] MEDS: INSULIN ASPART (NovoLOG) 100 UNIT/ML VIAL SQ SCH ×4 (06:16→20:42)
[2021-04-25] MEDS: PANTOPRAZOLE 40 MG TABLET PO SCH (06:17)
[2021-04-25] MEDS: IPRATROPIUM-ALBUTEROL 3 ML NEB INHALATION SCH ×4 (07:49→20:47)
[2021-04-25] MEDS: APIXABAN 5 MG TAB PO SCH ×2 (08:10→20:13)
[2021-04-25] MEDS: FUROSEMIDE 10 MG/ML 2 ML VIAL IV SCH ×2 (08:11→20:13)
[2021-04-25] MEDS: BENZONATATE 100 MG CAP PO SCH ×3 (08:11→20:42)
--- NOTE | 2021-04-25 11:40 | P.PN ---
Subjective Progress Note Date: 04/25/21 Patient is a 60-year-old male with a known history of COPD, pulmonary fibrosis, chronic hypoxic respiratory failure on oxygen at 2 L via nasal cannula presents to ER with the complaints of worsening shortness of breath. According to his patient did have cough spell which usually improves but today afternoon patient became more short of breath and pulse ox was 77% given it 5 L of oxygen via nasal cannula. Patient was brought to ER. Patient is also having chest tightness/discomfort when trying to take deep breath. Cough without sputum production. No fever no chills. Patient does have nebulizer and CPAP at home. On admission patient was tachycardic tachypneic and his pulse ox 74% on room a ir. Patient was placed on BiPAP in the ER. Chest x-ray showed cardiomegaly with diffuse interstitial opacities more confluent in the periphery of the mid and lower lungs. Chronicity is unclear. Consider interstitial pulmonary edema, atypical pneumonia and/or pulmonary fibrosis. Possible moderate sized hiatal hernia. EKG showed normal sinus rhythm. Chest CTA showed acute PE involving the right lower lobe segmental subsegmental bronchial branches. Diffuse interstitial opacities may represent acute on chronic disease. Laboratory data showed WBC 14.1 hemoglobin 19.5 and platelets 161 BUN 13 and creatinine 0.74 lactic acid 2.7 and proBNP 3790 and procalcitonin level is 0.1 04/14/2021 Patient seen and evaluated in follow-up this morning continues to have difficulty in breathing and extremely dyspneic with minimal exertion and is becoming extremely anxious and lower oxygen saturations of 84% on 6 L nasal cannula and was placed back on BiPAP per nursing staff. Pulmonary following closely. Patient did undergo chest CTA which showed a pulmonary embolism and was started on IV heparin and will continue for now. Eliquis prescription was sent to the pharmacy to verify coverage in case management made aware. White blood count slightly improved at 11.8, hemoglobin is 17.1. Patient is continued on breathing inhalational treatments along with IV Levaquin and IV steroids and will continue at this time. Patient was given a dose of IV Lasix last night with some improvement in breathing. 04/15/21 Patient is lying in the bed. Awake alert oriented 3 currently maintained on BiPAP. Patient was transitioned to 6 L oxygen with another cannula this morning but was back on BiPAP now. Next and bilateral lower extremity duplex scan showed right popliteal and femoral DVT. Echocardiogram showed ejection fraction between 60% and right ventricular is severely dilated with severe TR and p ulmonary hypertension. Patient is being continued on Solu-Medrol, DuoNeb's and antibiotics, Levaquin. Heparin has been transitioned to Eliquis. pulmonary is on board. 04/16/2021 Patient is currently resting in the bed. Was on BiPAP 14 x 16 with FiO2 40%. Patient required BiPAP during lunchtime 6 L oxygen via nasal cannula. Patient was desaturating with nasal cannula. Denied any complaints of chest pain or worsening shortness of. No fever no chills. Patient is being current on Eliquis 10 mg twice daily. Laboratory data showed WBC 13.5 hemoglobin 16.5 and platelets 197, BUN 19 and creatinine 0.65 Current living current antibiotic in the form of Levaquin and IV steroids and duo nebs. Pulmonary is following. Blood sugar is 229. 04/17/2021 Patient is seen in follow-up this morning continues to be on the BiPAP as he is not tolerating nasal cannula and oxygen saturations are dropping drastically within minutes. Respiratory notified of possible replacement facemask as the one he is currently wearing is slightly small. Family at the bedside concerned about the facemask fitting. Nursing staff is aware. Bilateral nares following closely. White blood count slightly trending down at 12.6 and hemoglobin is stable at 17.3. Sodium is 136 with a potassium of 4.8 current creatinine is 0.64. Blood sugars being monitored and will continue with sliding scale and long-acting. Patient is on oral Levaquin and will continue at this time. Patient also continues with breathing inhalational treatments along with IV steroids 60 mg every 6. 04/18/2021 Patient is seen this morning with at the bedside and discussion was had in length with Dr. Gaitan at bedside to again address the extremely poor prognosis and to again recommend comfort measures with hospice. [facility] consulted and did meet with family for informational meeting and requesting follow up meeting this when children are present. Case management following. Patient is bipap dependent. 04/19/2021 Patient was evaluated this morning sitting upright in bed. Patient is on BiPAP. Respiratory therapy attempted to wean patient off the BiPAP this morning and a 15 L high flow nasal cannula without success, patient's oxygen saturation continued to drop. Patient is alert and oriented, he denies any chest pain, reports shortness of breath, reports diarrhea and cough. Patient reports a fair appetite, but states it is hard to eat. The plan is for the family to meet with hospice tomorrow when the children are available, and patient would most likely be opened to [facility]. 04/20/2021 Patient is evaluated at bedside today with family present. Plan is for hospice meeting with [facility] today regarding patients current prognosis. Patient is on 15 L high flow nasal cannula at the time of my examination with oxygen saturation of between 80-90%. Patient states that he continues to feel s hort of breath at rest and this can continue to have some intermittent chest pain related to the pulmonary embolism. Patient is receiving management in the form of IV Dilaudid. Patient is being followed closely by pulmonary services, is continued on IV Lasix IV Solu-Medrol and oral antibiotics. Patient has been transitioned to oral eliquis for that PE, DVT. Patient remains afebrile blood pressure remained stable. Plan of care pending hospice meeting. 04/21/2021 Patient is seen this morning with his , sister and [id number] at the bedside. Per the and patient they are currently not ready to make a decision regarding hospice services. Patient would like to be able to see ad ditional friends and family. The plan for today when the 's sister to the hospital they're going to meet with hospice services to discuss. Patient is still being followed by pulmonary services. Patient remains on IV Lasix, IV Solu-Medrol, antibiotics, breathing treatments, and remains BiPAP dependent. Patient is able to tolerate a 15 L high flow cannula for small periods of time. He still complains of feeling short of breath. Patient has a history of end- stage pulmonary fibrosis, COPD, and family and patient updated on prognosis. Patient's blood pressure remained stable at 111/69, heart rate 69. Oxygen saturation is 85% on a 15 L high flow cannula. 04/22/2021 Patient is evaluated today at the bedside with family member. Patient is on the BiPAP, requesting to change the nasal cannula. Patient states that he is tolerating a 15 L nasal cannula intermittently in order to visit with family. The plan for this patient is to visit family over the weekend and will sign onto hospice Min morning. Patient will continue all current medications in the meantime. Patient denies chest pain, reports cough, reports shortness of breath. Patient is unable to ambulate out of bed due to a desaturation of oxygen and generalized weakness. Patient states that he did receive a bed bath today, and tolerated that okay. Vital signs remained stable patient remains afebrile heart rate sinus rhythm in 80s, blood pressure 117/65. Patient denies any further needs today. 04/23/2021 Patient continues to be primarily bedrest, patient does not tolerate ambulation. Patient maintains mostly BiPAP dependent, on 15 L nasal cannula with oxygen saturation between 83 date 89%. Patient states that he is ready for hospice he said he has comes to terms with her and the plan is to initiate hospice on Saturday. Patient states that his like to prolong this long as possible, however he states that he is ultimately ready. During this hospital stay, patient can be maintained on IV steroids, IV Lasix, all liquids, Xanax as needed, and breathing treatments and insulin coverage. Pulmonary has signed off at this time. There are no further workups ordered. Patient reports her and breath, cough, generalized pain. Patient continues on IV Dilaudid for pain management. 04/24/2021 Patient continues to be poorly bedrest, primarily BiPAP dependent. Patient on a 15 L nasal cannula, oxygen saturation between 83-89%. Patient continues to deny, chest pain, reports sugars of breath, cough. Patient is still maintained on IV steroids, IV Lasix, Xanax as needed and breathing treatments insulin coverage. Pulmonary services has signed off at this time in this patient. Continues on IV Dilaudid for pain management. Patient is a no code at this time. Multiple discussions have been had the bedside with patient and his regarding the need for hospice services due to [id number]. Patient is not a candidate for any further treatments regarding his end-stage pulmonary fibrosis, COPD. In addition patient is on eliquis for an acute PE. Per patient he is ready for hospice sign-on on Saturday. If this does not happen on Saturday, further discussion will need to be had with the patient and family regarding his plan of care. 04/25/2021 Patient continues to be on bedrest, BiPAP dependent. Patient is on a nasal cannula 15 L high flow the time of my exam, oxygen saturation 84%. Patient states that he is ready for hospice, he has now stated that hospice will happen on . He states that his does not feel ready at this time however he does. Patient continues on IV Dilaudid for pain management, patient is complaining today of some discomfort in his right chest, states that it is worse with inspiration and expiration. Patient will be started on IV morphine, to alternate with his IV Dilaudid for pain management. Patient also complains of cough, shortness of breath at rest, exertional dyspnea. Patient's respirations continue to be an elevated rate. He reports a fair appetite, he states that he eats when he can, and eats slow. Patient's vital signs today reveal a temperature of 97.5, heart rate 68, blood pressure 117/77. Patient continues IV steroids, IV Lasix, by mouth antibiotics. ROS Constitutional: No reports of fatigue, fever, or chills, reports anxiousness Cardiovascular: No reports of chest pain or palpitations Respiratory: reports of continued shortness of breath, cough, pain with inspiration and expiration. GI: No reports of nausea, vomiting, or diarrhea : No reports of dysuria or retention Neurovascular: Reports generalized weakness All medications have been reviewed Physical exam: Patient is sitting up in the bed continues to be anxious, awake alert and oriented.. HEENT: Normocephalic. Neck is supple. Pupils reactive. Nostrils clear. Oral cavity is moist. Neck reveals no JVD, carotid bruits, or thyromegaly. CHEST EXAMINATION: Trachea is central. Symmetrical expansion. Bilateral diminished air entry. Scattered coarse rhonchi. tachypneic CARDIAC: Normal S1, S2 with no gallops. No murmurs ABDOMEN: Soft. Bowel sounds normal. No organomegaly. No abdominal bruits. Extremities: reveal no edema. No clubbing or cyanosis Neurologically awake, alert, oriented, with well-coordinated movements. No focal deficits noted Skin: No rash or skin lesions. Psychiatric: Cooperative. Musculoskeletal: No joint swelling or deformity. Normal range of motion. Assessment and plan: Acute on chronic hypoxic respiratory failure is due to multifactorial etiology. Patient is BiPAP dependent Acute PE involving the right lower lobe segmental and subsegmental branches. On eliquis. Right popliteal and femoral DVT - on Eliquis Acute COPD exacerbation patient being treated with IV Solu Medrol and breathing treatments. Possible pneumonia with underlying pulmonary fibrosis on oral antibiotics. Severe pulmonary hypertension with severe RV dilation and severe TR. Pt remains on IV lasix Chronic hypoxic respiratory failure secondary to COPD and pulmonary fibrosis Lactic acidosis due to hypoxia Previous history of smoking GI prophylaxis - Protonix DVT prophylaxis: eliquis No code Plan: Patient is continued on BiPAP and mostly bipap dependent at this point. Patient has able to tolerate a 15 L high flow cannula for brief moments throughout the day. Patient has still been unable to ambulate up out of bed due to severe shortness of breath and oxygen desaturation. Continue with Solu-Medrol and duo nebs, levaquin, and eliquis. Will continue to monitor closely. Due to multiple complex medical issues, prognosis is extremely poor and quarded. Patient states that he will sign onto hospice on , initially was Saturday. Patient has his pain management increase, a dose of IV morphine every 6 hours has been added. Continue all current medications. Pulmonary services has signed off at t his time as well. Continue supportive care. Objective - Vital Signs Vital signs: Vital Signs Temp 97.5 F L 04/25/21 11:29 Pulse 68 04/25/21 11:29 Resp 25 H 04/25/21 11:29 BP 117/77 04/25/21 11:29 Pulse Ox 89 L 04/25/21 11:29 Intake & Output 04/24/21 04/25/21 04/25/21 18:59 06:59 18:59 Intake Total 720 240 Output Total 1475 650 450 Balance -755 -650 -210 Weight 93.5 kg Intake: Oral 720 240 Output: Urine 1475 650 450 Other: Voiding Method Urinal Urinal # Voids 1 # Bowel Movements 1 - Labs CBC & Chem 7: 04/17/21 07:17 04/17/21 07:17 Labs: Abnormal Lab Results - Last 24 Hours (Table) 04/24/21 04/24/21 04/25/21 Range/Units 16:35 20:27 05:59 POC Glucose (mg/dL) 354 H 298 H 266 H (75-99) mg/dL Assessment and Plan Time with Patient: Greater than 30
[2021-04-25 11:48] LABS: Glucose,Whole Blood 281 mg/dL (75-99)
[2021-04-25] MEDS: MORPHINE SULFATE 2 MG/ML SYRINGE IVP PRN ×2 (12:20→20:13)
[2021-04-25] MEDS: SODIUM CHLORIDE 0.9% 1,000 ML IV SCH (14:09)
[2021-04-25 16:36] LABS: Glucose,Whole Blood 297 mg/dL (75-99)
[2021-04-25 20:32] LABS: Glucose,Whole Blood 230 mg/dL (75-99)
[2021-04-25] MEDS: INSULIN DETEMIR (LEVEMIR) 100 UNIT/ML SYR SQ SCH (20:41)
[2021-04-25] MEDS: ALPRAZolam 0.5 MG TAB PO PRN (21:56)
[2021-04-26] MEDS: methylPREDNISolone SOD SUCCI 125 MG/2 ML VIAL IV SCH ×3 (00:06→11:24)
[2021-04-26] MEDS: MORPHINE SULFATE 2 MG/ML SYRINGE IVP PRN ×4 (01:25→19:00)
[2021-04-26] MEDS: HYDROmorphone 1 MG/ML 1 ML SYRINGE IVP PRN ×4 (03:20→21:46)
[2021-04-26 06:33] LABS: Glucose,Whole Blood 357 mg/dL (75-99)
[2021-04-26] MEDS: PANTOPRAZOLE 40 MG TABLET PO SCH (06:38)
[2021-04-26] MEDS: INSULIN ASPART (NovoLOG) 100 UNIT/ML VIAL SQ SCH ×4 (06:41→21:48)
[2021-04-26] MEDS: IPRATROPIUM-ALBUTEROL 3 ML NEB INHALATION SCH ×3 (08:52→19:25)
[2021-04-26] MEDS: APIXABAN 5 MG TAB PO SCH ×2 (09:09→21:47)
[2021-04-26] MEDS: FUROSEMIDE 10 MG/ML 2 ML VIAL IV SCH ×2 (09:09→21:47)
[2021-04-26] MEDS: BENZONATATE 100 MG CAP PO SCH ×3 (09:09→21:47)
--- NOTE | 2021-04-26 09:46 | CDI ---
Documentation Clarification Form Date: 04/26/2021 09:26:38 AM From: Brook Grewal CCS, CCDS Admit Date: 04/13/2021 03:02:00 PM Patient Name: Everardo Martínez Visit Number: [id number] Discharge Date: ATTENTION: The Clinical Documentation Specialists (CDI) and [facility] Coding Staff appreciate your assistance in clarifying documentation. Please respond to the clarification below the line at the bottom and electronically sign. The CDI & [facility] Coding staff will review the response and follow-up if needed. Please note: Queries are made part of the Legal Health Record. If you have any questions, please contact the author of this message via ITS. Dr. Elver Rey: The patient has documented Acute Respiratory Distress Syndrome (04/13 ED Note) and Chest discomfort, Hypoxemia and Pulmonary Hypertension documented in the 04/13 H/P and Pulmonary Consult and in subsequent Progress Notes. Additional clarification regarding a possible associated condition is requested. History/Risk Factors per the 04/13 H/P: COPD, Pulmonary fibrosis, Chronic Hypoxic Respiratory Failure on Home O2 2Lnc, Smoker. Clinical Indicators: Presented to the ED on 04/13, (recently seen at [facility]) with worsening exertional dyspnea & chest discomfort. Had a cough with minimal phlegm production, SOB. 04/13 VS: T 97.9, P 120, R 36 (SOB, labored, accessory use, cough, deep breaths, tachypnea), BP 126/88, PO 74 RA - 50% BiPAP, BMI: 29.9 04/13 LAB: WBC 14.1, RBC 6.01, Hgb 19.5, Hct 56.9, Neut 10.5; PT 12.4, INR 1.2; APTT 24.7, >200.0 (04/14); CO2 18, Glucose 192, Procalcitonin 0.10. 04/13 BNP 3790 04/13 CXR: Cardiomegaly with diffuse interstitial opacities more confluent in periphery of the mid & lower lungs, Chronicity is unclear. Consider interstitial pulmonary edema, atypical pneumonias and/or pulmonary fibrosis. 04/13 CT Chest: Acute PE RLL, Diffuse interstitial opacities, may represent acute on chronic disease. 04/13 CT Chest ([facility]): Moderate centrilobular & paraseptal emphysema and bronchiectasis in addition to interstitial pulmonary fibrosis: moderate to severe. Treatment 04/13: INH Duoneb x1, IV Solumedrol 125 mg x1, IV Na Cl 1,000 mls @ 130 mls/hr q7H, IV Ativan x1, IV Na Cl 1,000 mls @ 999 mls/hr q1H, INH Duoneb 3 ml prn, IV Lasix 40 mg x2, IV Levaquin 140 mls q24H, po Tessalon Perles 200 mg TID, IV Solumedrol 60 mg q6H, IV Heparin. 04/13 Pulmonary Consult: Acute on chronic dyspnea and hypoxia, rule out possibility of PE, rule out possibility of pneumonia or pulmonary fibrosis exacerbation. Pulmonary fibrosis, recently progressed. Chronic hypoxic respiratory failure related to COPD & pulmonary fibrosis. Please clarify if the following diagnosis is present: [ ] Acute Cor pulmonale due to pulmonary embolism [ ] Acute Cor pulmonale due to (please specify) [ ] Chronic Cor pulmonale due to Pulmonary Hypertension [ ] Chronic Cor pulmonale due to COPD [x ] Chronic Cor pulmonale due to Pulmonary fibrosis [ ] Unable to determine [ ] Other, please specify Template Last Revised: November 2020) MTDD
[2021-04-26 11:04] LABS: Glucose,Whole Blood 327 mg/dL (75-99)
--- NOTE | 2021-04-26 14:36 | P.PN ---
Subjective Progress Note Date: 04/26/21 Patient is a 60-year-old male with a known history of COPD, pulmonary fibrosis, chronic hypoxic respiratory failure on oxygen at 2 L via nasal cannula presents to ER with the complaints of worsening shortness of breath. According to his patient did have cough spell which usually improves but today afternoon patient became more short of breath and pulse ox was 77% given it 5 L of oxygen via nasal cannula. Patient was brought to ER. Patient is also having chest tightness/discomfort when trying to take deep breath. Cough without sputum production. No fever no chills. Patient does have nebulizer and CPAP at home. On admission patient was tachycardic tachypneic and his pulse ox 74% on room a ir. Patient was placed on BiPAP in the ER. Chest x-ray showed cardiomegaly with diffuse interstitial opacities more confluent in the periphery of the mid and lower lungs. Chronicity is unclear. Consider interstitial pulmonary edema, atypical pneumonia and/or pulmonary fibrosis. Possible moderate sized hiatal hernia. EKG showed normal sinus rhythm. Chest CTA showed acute PE involving the right lower lobe segmental subsegmental bronchial branches. Diffuse interstitial opacities may represent acute on chronic disease. Laboratory data showed WBC 14.1 hemoglobin 19.5 and platelets 161 BUN 13 and creatinine 0.74 lactic acid 2.7 and proBNP 3790 and procalcitonin level is 0.1 04/14/2021 Patient seen and evaluated in follow-up this morning continues to have difficulty in breathing and extremely dyspneic with minimal exertion and is becoming extremely anxious and lower oxygen saturations of 84% on 6 L nasal cannula and was placed back on BiPAP per nursing staff. Pulmonary following closely. Patient did undergo chest CTA which showed a pulmonary embolism and was started on IV heparin and will continue for now. Eliquis prescription was sent to the pharmacy to verify coverage in case management made aware. White blood count slightly improved at 11.8, hemoglobin is 17.1. Patient is continued on breathing inhalational treatments along with IV Levaquin and IV steroids and will continue at this time. Patient was given a dose of IV Lasix last night with some improvement in breathing. 04/15/21 Patient is lying in the bed. Awake alert oriented 3 currently maintained on BiPAP. Patient was transitioned to 6 L oxygen with another cannula this morning but was back on BiPAP now. Next and bilateral lower extremity duplex scan showed right popliteal and femoral DVT. Echocardiogram showed ejection fraction between 60% and right ventricular is severely dilated with severe TR and p ulmonary hypertension. Patient is being continued on Solu-Medrol, DuoNeb's and antibiotics, Levaquin. Heparin has been transitioned to Eliquis. pulmonary is on board. 04/16/2021 Patient is currently resting in the bed. Was on BiPAP 14 x 16 with FiO2 40%. Patient required BiPAP during lunchtime 6 L oxygen via nasal cannula. Patient was desaturating with nasal cannula. Denied any complaints of chest pain or worsening shortness of. No fever no chills. Patient is being current on Eliquis 10 mg twice daily. Laboratory data showed WBC 13.5 hemoglobin 16.5 and platelets 197, BUN 19 and creatinine 0.65 Current living current antibiotic in the form of Levaquin and IV steroids and duo nebs. Pulmonary is following. Blood sugar is 229. 04/17/2021 Patient is seen in follow-up this morning continues to be on the BiPAP as he is not tolerating nasal cannula and oxygen saturations are dropping drastically within minutes. Respiratory notified of possible replacement facemask as the one he is currently wearing is slightly small. Family at the bedside concerned about the facemask fitting. Nursing staff is aware. Bilateral nares following closely. White blood count slightly trending down at 12.6 and hemoglobin is stable at 17.3. Sodium is 136 with a potassium of 4.8 current creatinine is 0.64. Blood sugars being monitored and will continue with sliding scale and long-acting. Patient is on oral Levaquin and will continue at this time. Patient also continues with breathing inhalational treatments along with IV steroids 60 mg every 6. 04/18/2021 Patient is seen this morning with at the bedside and discussion was had in length with Dr. Gaitan at bedside to again address the extremely poor prognosis and to again recommend comfort measures with hospice. [facility] consulted and did meet with family for informational meeting and requesting follow up meeting this when children are present. Case management following. Patient is bipap dependent. 04/19/2021 Patient was evaluated this morning sitting upright in bed. Patient is on BiPAP. Respiratory therapy attempted to wean patient off the BiPAP this morning and a 15 L high flow nasal cannula without success, patient's oxygen saturation continued to drop. Patient is alert and oriented, he denies any chest pain, reports shortness of breath, reports diarrhea and cough. Patient reports a fair appetite, but states it is hard to eat. The plan is for the family to meet with hospice tomorrow when the children are available, and patient would most likely be opened to [facility]. 04/20/2021 Patient is evaluated at bedside today with family present. Plan is for hospice meeting with [facility] today regarding patients current prognosis. Patient is on 15 L high flow nasal cannula at the time of my examination with oxygen saturation of between 80-90%. Patient states that he continues to feel s hort of breath at rest and this can continue to have some intermittent chest pain related to the pulmonary embolism. Patient is receiving management in the form of IV Dilaudid. Patient is being followed closely by pulmonary services, is continued on IV Lasix IV Solu-Medrol and oral antibiotics. Patient has been transitioned to oral eliquis for that PE, DVT. Patient remains afebrile blood pressure remained stable. Plan of care pending hospice meeting. 04/21/2021 Patient is seen this morning with his , sister and [id number] at the bedside. Per the and patient they are currently not ready to make a decision regarding hospice services. Patient would like to be able to see ad ditional friends and family. The plan for today when the 's sister to the hospital they're going to meet with hospice services to discuss. Patient is still being followed by pulmonary services. Patient remains on IV Lasix, IV Solu-Medrol, antibiotics, breathing treatments, and remains BiPAP dependent. Patient is able to tolerate a 15 L high flow cannula for small periods of time. He still complains of feeling short of breath. Patient has a history of end- stage pulmonary fibrosis, COPD, and family and patient updated on prognosis. Patient's blood pressure remained stable at 111/69, heart rate 69. Oxygen saturation is 85% on a 15 L high flow cannula. 04/22/2021 Patient is evaluated today at the bedside with family member. Patient is on the BiPAP, requesting to change the nasal cannula. Patient states that he is tolerating a 15 L nasal cannula intermittently in order to visit with family. The plan for this patient is to visit family over the weekend and will sign onto hospice Min morning. Patient will continue all current medications in the meantime. Patient denies chest pain, reports cough, reports shortness of breath. Patient is unable to ambulate out of bed due to a desaturation of oxygen and generalized weakness. Patient states that he did receive a bed bath today, and tolerated that okay. Vital signs remained stable patient remains afebrile heart rate sinus rhythm in 80s, blood pressure 117/65. Patient denies any further needs today. 04/23/2021 Patient continues to be primarily bedrest, patient does not tolerate ambulation. Patient maintains mostly BiPAP dependent, on 15 L nasal cannula with oxygen saturation between 83 date 89%. Patient states that he is ready for hospice he said he has comes to terms with her and the plan is to initiate hospice on Saturday. Patient states that his like to prolong this long as possible, however he states that he is ultimately ready. During this hospital stay, patient can be maintained on IV steroids, IV Lasix, all liquids, Xanax as needed, and breathing treatments and insulin coverage. Pulmonary has signed off at this time. There are no further workups ordered. Patient reports her and breath, cough, generalized pain. Patient continues on IV Dilaudid for pain management. 04/24/2021 Patient continues to be poorly bedrest, primarily BiPAP dependent. Patient on a 15 L nasal cannula, oxygen saturation between 83-89%. Patient continues to deny, chest pain, reports sugars of breath, cough. Patient is still maintained on IV steroids, IV Lasix, Xanax as needed and breathing treatments insulin coverage. Pulmonary services has signed off at this time in this patient. Continues on IV Dilaudid for pain management. Patient is a no code at this time. Multiple discussions have been had the bedside with patient and his regarding the need for hospice services due to [id number]. Patient is not a candidate for any further treatments regarding his end-stage pulmonary fibrosis, COPD. In addition patient is on eliquis for an acute PE. Per patient he is ready for hospice sign-on on Saturday. If this does not happen on Saturday, further discussion will need to be had with the patient and family regarding his plan of care. 04/25/2021 Patient continues to be on bedrest, BiPAP dependent. Patient is on a nasal cannula 15 L high flow the time of my exam, oxygen saturation 84%. Patient states that he is ready for hospice, he has now stated that hospice will happen on . He states that his does not feel ready at this time however he does. Patient continues on IV Dilaudid for pain management, patient is complaining today of some discomfort in his right chest, states that it is worse with inspiration and expiration. Patient will be started on IV morphine, to alternate with his IV Dilaudid for pain management. Patient also complains of cough, shortness of breath at rest, exertional dyspnea. Patient's respirations continue to be an elevated rate. He reports a fair appetite, he states that he eats when he can, and eats slow. Patient's vital signs today reveal a temperature of 97.5, heart rate 68, blood pressure 117/77. Patient continues IV steroids, IV Lasix, by mouth antibiotics. 04/26/2021 Patient is on bed rest. Patient states that he is able to turn himself in the bed. Patient remains on either BiPAP, nasal cannula 15 L high flow. Patient's oxygen saturation has been between 83-90%. Patient is afebrile, temp 98, heart rate 88 sinus rhythm, respirations have been between 20-25. Patient's blood pressure is 103/68. Patient was started on a dose of IV morphine yesterday in conjunction with his IV Dilaudid for pain management. Patient states that the morphine has helped with the pain some. The plan is to transition patient to hospice tomorrow. Pulmonary has signed off at this time. Patient remains hyperglycemic, patient is eating candy at the bedside. Patient needs continued oral care, due to decreased appetite, decreased oral intake, BiPAP. Patient reports cough, shortness of breath, intermittent pain with inspiration and expiration. Patient remains in all current medications. ROS Constitutional: No reports of fatigue, fever, or chills, reports anxiousness Cardiovascular: No reports of chest pain or palpitations Respiratory: reports of continued shortness of breath, cough, pain with inspirat ion and expiration. GI: No reports of nausea, vomiting, or diarrhea : No reports of dysuria or retention Neurovascular: Reports generalized weakness All medications have been reviewed Physical exam: Patient is sitting up in the bed continues to be anxious, awake alert and oriented.. HEENT: Normocephalic. Neck is supple. Pupils reactive. Nostrils clear. Oral cavity is moist. Neck reveals no JVD, carotid bruits, or thyromegaly. CHEST EXAMINATION: Trachea is central. Symmetrical expansion. Bilateral diminished air entry. Scattered coarse rhonchi. tachypneic CARDIAC: Normal S1, S2 with no gallops. No murmurs ABDOMEN: Soft. Bowel sounds normal. No organomegaly. No abdominal bruits. Extremities: reveal no edema. No clubbing or cyanosis Neurologically awake, alert, oriented, with well-coordinated movements. No focal deficits noted Skin: No rash or skin lesions. Psychiatric: Cooperative. Musculoskeletal: No joint swelling or deformity. Normal range of motion. Assessment and plan: Acute on chronic hypoxic respiratory failure is due to multifactorial etiology. Patient is BiPAP dependent Acute PE involving the right lower lobe segmental and subsegmental branches. On eliquis. Right popliteal and femoral DVT - on Eliquis Acute COPD exacerbation patient being treated with IV Solu Medrol and breathing treatments. Possible pneumonia with underlying pulmonary fibrosis on oral antibiotics. Severe pulmonary hypertension with severe RV dilation and severe TR. Pt remains on IV lasix Chronic hypoxic respiratory failure secondary to COPD and pulmonary fibrosis Lactic acidosis due to hypoxia Previous history of smoking GI prophylaxis - Protonix DVT prophylaxis: eliquis No code Plan: Patient is continued on BiPAP and mostly bipap dependent at this point. Patient has able to tolerate a 15 L high flow cannula for brief moments throughout the day. Patient has still been unable to ambulate up out of bed due to severe shortness of breath and oxygen desaturation. Continue with Solu-Medrol and duo nebs, levaquin, and eliquis. Will continue to monitor closely. Due to multiple complex medical issues, prognosis is extremely poor and quarded. Patient states that he will sign onto hospice on , initially was Saturday. Patient has his pain management increase, a dose of IV morphine every 6 hours has been added. Continue all current medications. Pulmonary services has signed off at this time as well. Continue supportive care. Please continue with routine oral care on this patient. Objective - Vital Signs Vital signs: Vital Signs Temp 98.0 F 04/26/21 11:27 Pulse 88 04/26/21 12:08 Resp 20 04/26/21 12:08 BP 103/68 04/26/21 11:27 Pulse Ox 84 L 04/26/21 11:27 Intake & Output 04/25/21 04/26/21 04/26/21 18:59 06:59 18:59 Intake Total 480 650 240 Output Total 1200 1850 550 Balance -720 -1200 -310 Weight 94.5 kg Intake: Oral 480 650 240 Output: Urine 1200 1850 550 Other: Voiding Method Urinal Urinal Urinal - Labs CBC & Chem 7: 04/17/21 07:17 04/17/21 07:17 Labs: Abnormal Lab Results - Last 24 Hours (Table) 04/25/21 04/25/21 04/26/21 Range/Units 16:35 20:31 06:30 POC Glucose (mg/dL) 297 H 230 H 357 H (75-99) mg/dL 04/26/21 Range/Units 11:01 POC Glucose (mg/dL) 327 H (75-99) mg/dL Assessment and Plan Time with Patient: Greater than 30
[2021-04-26] MEDS: SODIUM CHLORIDE 0.9% 1,000 ML IV SCH (14:37)
[2021-04-26 16:30] LABS: Glucose,Whole Blood 330 mg/dL (75-99)
[2021-04-26 20:28] LABS: Glucose,Whole Blood 298 mg/dL (75-99)
[2021-04-26] MEDS: ALPRAZolam 0.5 MG TAB PO PRN (21:46)
[2021-04-26] MEDS: INSULIN DETEMIR (LEVEMIR) 100 UNIT/ML SYR SQ SCH (21:48)
[2021-04-27] MEDS: HYDROmorphone 1 MG/ML 1 ML SYRINGE IVP PRN ×3 (02:01→13:32)
[2021-04-27 06:19] LABS: Glucose,Whole Blood 231 mg/dL (75-99)
[2021-04-27] MEDS: PANTOPRAZOLE 40 MG TABLET PO SCH (06:23)
[2021-04-27] MEDS: INSULIN ASPART (NovoLOG) 100 UNIT/ML VIAL SQ SCH ×2 (06:25→12:16)
[2021-04-27] MEDS: BENZONATATE 100 MG CAP PO SCH (08:05)
[2021-04-27] MEDS: APIXABAN 5 MG TAB PO SCH (08:05)
[2021-04-27] MEDS: FUROSEMIDE 10 MG/ML 2 ML VIAL IV SCH (08:05)
[2021-04-27] MEDS ORDERED: BENZOCAINE/MENTHOL LOZENG 1 EACH LOZENGE MUCOUS MEM PRN (08:13)
[2021-04-27] MEDS: IPRATROPIUM-ALBUTEROL 3 ML NEB INHALATION SCH ×2 (09:09→12:38)
[2021-04-27] MEDS: MORPHINE SULFATE 2 MG/ML SYRINGE IVP PRN (11:22)
[2021-04-27 11:27] VITALS: BP 103/67; RESP 26; TEMP 98.5
[2021-04-27 11:29] LABS: Glucose,Whole Blood 238 mg/dL (75-99)
[2021-04-27 12:41] VITALS: PULSE 88
--- NOTE | 2021-04-27 13:42 | P.DS ---
Providers Date of admission: 04/13/21 15:02 Attending physician: Stephanie Hayes Consults: 04/13/21 15:02 Consult Physician Routine Consulting Provider: Manjeet Frost Reason/Comments: COPD exacerbation Do you want consulting provider notified?: Yes Primary care physician: Manjeet Frost Hospital Course: Final diagnoses Acute on chronic hypoxic respiratory failure is due to multifactorial etiology. Patient is BiPAP dependent Acute PE involving the right lower lobe segmental and subsegmental branches. On eliquis. Right popliteal and femoral DVT - on Eliquis Acute COPD exacerbation patient treated with IV Solu Medrol and breathing treatments. Possible pneumonia with underlying pulmonary fibrosis on oral antibiotics. Pulmonary fibrosis, progressing Severe pulmonary hypertension with severe RV dilation and severe TR. Pt remains on IV lasix Chronic hypoxic respiratory failure secondary to COPD and pulmonary fibrosis Lactic acidosis due to hypoxia Previous history of smoking GI prophylaxis - Protonix DVT prophylaxis: eliquis No code Discharge disposition Patient will be admitted for inpatient hospice services. Patient had initially planned to either go home or transfer to a outside facility with hospice services, however patient states that he doesn't feel he will do well outpatient, he is requesting at this time to be continued on IV morphine, and initiate hospice. Patients RR continues to be elevated at 26. Patient is currently 83% on 15L HF, was BiPAP dependent previously. Hospital course This is a 61-year-old male who has a history of COPD, advanced pulmonary fibr osis, chronic hypoxic respiratory failure and has remained oxygen dependent. Patient follows with Dr. Frost in the office. Patient was evaluated in December 2020 was placed on oxygen therapy at this time, since he has been oxygen dependent. Patient had a computed tomography scan completed in May 2020 that showed moderate to severe in nature pulmonary fibrosis as well as emphysema. Patient also came to the ER with complaints of worsening shortness of breath. Patient had a cough, which was improving however patient became very short of breath, pulse ox was 77% on 5 L nasal cannula. Patient was brought to the ER, he was having chest tightness and discomfort and was unable to take a deep breath. Patient has no fever or chills. Patient uses a nebulizer and CPAP at home, patient was tachycardic to Make his pulse ox was 74% on room air at the time of admission. She was placed on BiPAP in the ER. Chest x-ray showed cardiomegaly with diffuse interstitial opacities more confluent in the periphery of the mid and lower lungs. Chronicity is unclear. Consider interstitial pulmonary edema, atypical pneumonia and/or pulmonary fibrosis. There is a possible moderate-sized hiatal hernia. EKG showed normal sinus rhythm. Chest CT showed an acute PE involving the right lower lobe segmental and subsegmental bronchial branches. Diffuse interstitial opacities represent acute on chronic disease. For this patient was evaluated by pulmonary services. Patient was started on IV Lasix, IV Solu-Medrol, by mouth Zithromax. Patient has stayed on this course of therapy without further improvement in his respiratory status. Patient has been unable to tolerate coming off the BiPAP for 1 periods of time. Patient has still been unable to ambulate. Patient was treated with eliquis for the PE. He should has been receiving IV Dilaudid for pain management, 2 days ago IV morphine was also added as patient was experiencing exertional chest discomfort, persistent tachypnea. Patient has been receiving Xanax for anxiety this admission. Patient is receiving duo nebs, and has become BiPAP dependent this admission. Hospice was discussed with patient on April 17, patient and his has not with her family and have decided to be open to [facility] this hospital stay. Patient has been unable to get up out of bed, patient has maintained on the BiPAP, wears 15 L nasal cannula high flow in order to visit with his family, however his pulse ox saturation remains in the low 80s on this. We will recommend at this time to follow with hospice services, due to end-stage COPD, acute on chronic hypoxic or sensory failure, history of pulmonary fibrosis. Patient states that he feels ready. 04/27/2021 This is a pleasant 60-year-old male. Patient appears short of breath is having examination, he is unable to speak without stopping to breathe. Patient is a 15 L high flow nasal cannula, oxygen saturation is 83% on examination. Patient reports that he is still having some chest discomfort related to inspiration and expiration, he has been receiving IV Dilaudid, IV morphine. Patient is very anxious, he has been essentially BiPAP dependent. Patient is receiving Xanax for this. Patient is do not feel the patient will be do well in the home environment with hospice services. Vital signs today include a temperature of 98.5, heart rate 80, respiratory rate of 26, blood pressure 103/67, 83% on 15 L high flow nasal cannula. Patient will be opened to [facility] today. Patient's prognosis is poor, due to end-stage lung disease. Patient, , family and pulmonary services are in agreement that patient is an appropriate for hospice services at this time. Patient Condition at Discharge: Fair Plan - Discharge Summary New Discharge Prescriptions: New Apixaban [Eliquis Starter Pack (for VTE)] 0 mg PO DIRECTED 30 Days #1 pack No Action Promethaz-Cod 6.25-10 mg/5 ml [Phenergan with Codeine] 5 ml PO Q6H PRN PRN Reason: Cough Albuterol Sulfate [Ventolin HFA] 2 puff INHALATION RT-Q4H PRN PRN Reason: Shortness Of Breath methylPREDNISolone [Medrol Dose Pack] See Taper PO DIRECTED Pirfenidone [Esbriet] 801 mg PO BID Budesonide/Formoterol Fumarate [Symbicort 160-4.5 Mcg Inhaler] 2 puff INHALATION RT-BID Ipratropium-Albuterol Nebulize [Duoneb 0.5 mg-3 mg/3 ml Soln] 3 ml INHALATION RT-QID Benzonatate [Benzonatate Perle] 200 mg PO TID Discharge Medication List Albuterol Sulfate [Ventolin HFA] 2 puff INHALATION RT-Q4H PRN 04/13/21 [History] Benzonatate [Benzonatate Perle] 200 mg PO TID 04/13/21 [History] Budesonide/Formoterol Fumarate [Symbicort 160-4.5 Mcg Inhaler] 2 puff INHALATION RT-BID 04/13/21 [History] Ipratropium-Albuterol Nebulize [Duoneb 0.5 mg-3 mg/3 ml Soln] 3 ml INHALATION RT-QID 04/13/21 [History] Pirfenidone [Esbriet] 801 mg PO BID 04/13/21 [History] Promethaz-Cod 6.25-10 mg/5 ml [Phenergan with Codeine] 5 ml PO Q6H PRN 04/13/21 [History] methylPREDNISolone [Medrol Dose Pack] See Taper PO DIRECTED 04/13/21 [History] Apixaban [Eliquis Starter Pack (for VTE)] 0 mg PO DIRECTED 30 Days #1 pack 04/14/21 [Rx] Follow up Appointment(s)/Referral(s): Manjeet Frost DO [Primary Care Provider] - 1-2 days Activity/Diet/Wound Care/Special Instructions: Patient will be opened to [facility] hospice inpatient. Discharge Disposition: DISCH TO HOSPICE MED FACILTY
== END 2021-04-27 15:13 | disposition short-term general hospital, planned readmission (82) | DRG 175 ==
LOC: EC 12:43 → 3SCARD 15:02
PROVIDERS: ADMIT Internal Medicine; ATTEND Internal Medicine
DX: I26.09 Other pulmonary embolism with acute cor pulmonale (principal); J96.21 Acute and chronic respiratory failure with hypoxia; E87.2 Acidosis; I82.411 Acute embolism and thrombosis of right femoral vein; I82.439 Acute embolism and thrombosis of unspecified popliteal vein; J44.1 Chronic obstructive pulmonary disease with (acute) exacerbation; I27.81 Cor pulmonale (chronic); Z51.5 Encounter for palliative care; E86.0 Dehydration; F41.9 Anxiety disorder, unspecified; G89.29 Other chronic pain; I27.29 Other secondary pulmonary hypertension; Z79.899 Other long term (current) drug therapy; F17.200 Nicotine dependence, unspecified, uncomplicated; I50.9 Heart failure, unspecified; I07.1 Rheumatic tricuspid insufficiency; J84.112 Idiopathic pulmonary fibrosis; J98.4 Other disorders of lung; K44.9 Diaphragmatic hernia without obstruction or gangrene; M54.30 Sciatica, unspecified side; Z74.01 Bed confinement status; Z79.51 Long term (current) use of inhaled steroids; Z99.81 Dependence on supplemental oxygen; Z79.01 Long term (current) use of anticoagulants
CPT/HCPCS: 36415; 71045; 71275; 80048; 80053; 82550; 83605; 83735; 83880; 84145; 84484; 85025; 85610; 85730; 93005; 93306; 93970; 94640; 94660; 94760

== ENCOUNTER 2021-04-27 13:24 | Inpatient (IN) | payer MEDICAID ==
[2021-04-27] MEDS ORDERED: ONDANSETRON 4 MG/2 ML VIAL IVP PRN (14:52)
[2021-04-27] MEDS ORDERED: ATROPINE OPHTH SOLN 1% 5ML BTL SUBLINGUAL PRN (14:52)
[2021-04-27] MEDS ORDERED: ACETAMINOPHEN SUPPOSITORY 650 MG SUPP RECTAL PRN (14:52)
[2021-04-27] MEDS ORDERED: GLYCOPYRROLATE 0.2 MG/ML 2 ML VIAL IVP PRN (14:52)
[2021-04-27] MEDS ORDERED: SCOPOLAMINE 1.5MG/72HR PATCH TRANSDERM SCH (15:00)
[2021-04-27] MEDS: MORPHINE SULFATE (100 MG/2 ML) 100 MG in SODIUM CHLORIDE 0.9% 100 ML IV SCH (16:33)
[2021-04-27] MEDS: LORazepam 2 MG/ML INJ IV PRN ×2 (16:33→23:35)
[2021-04-27] MEDS: IPRATROPIUM-ALBUTEROL 3 ML NEB INHALATION PRN (16:47)
[2021-04-27] MEDS: HYDROmorphone 1 MG/ML 1 ML SYRINGE IVP PRN (19:59)
[2021-04-28] MEDS: LORazepam 2 MG/ML INJ IV PRN (03:19)
[2021-04-28] MEDS: IPRATROPIUM-ALBUTEROL 3 ML NEB INHALATION PRN (15:13)
--- NOTE | 2021-04-28 16:38 | P.HPIM ---
History of Present Illness H&P Date: 04/28/21 Chief Complaint: Shortness of Breath This is a 60-year-old male with a known history of COPD, pulmonary fibrosis, chronic hypoxic respiratory failure on oxygen at 2 L via nasal cannula. He presents to the emergency room with complaints of worsening shortness of breath. According to his patient did have a cough that usually improves but this afternoon on 04/13 patient became more short of breath and pulse ox was 77% on 5 L nasal cannula. Patient was brought to the ER. Patient does follow with pulmonology closely and has been maintained on esbriet for his long-standing history of pulmonary fibrosis. Patient is also having chest tightness, discomfort when trying to take a deep breath. Cough without sputum production. No fever or chills. Patient does have a nebulizer and CPAP at home. On admission patient was tachycardic, tachypneic and his pulse ox was 74% on room air. Patient was placed on the BiPAP in the ER. Chest x-ray revealed cardiomegaly with diffuse interstitial opacities more confluent in the periphery of the minimal lower lungs. Chronicity is unclear. Consider interstitial pulmonary edema, atypical pneumonia and/or pulmonary fibrosis. Possible moderate size hiatal hernia. EKG showed normal sinus rhythm Chest CTA showed acute PE involving the right lower lobe segmental subsegmental bronchial branches. Diffuse interstitial PACs may represent acute on chronic disease. Laboratory on admission revealed a white blood cell count of 14.1, hemoglobin 19.5, platelets 161 BUN 13 and creatinine 0.74 lactic acid 2.7 proBNP 3790 and procalcitonin level is 0.1 This admission, patient's white blood cell count continued to remain elevated the last level was 12.6 on 04/17/2021. Patient had an echocardiogram completed this admission that showed an ejection fraction of 55-60%, severe tricuspid regurgitation, severe pulmonary hypertension. In addition he had a venous Doppler that was positive for a DVT femoral vein and popliteal vein in the right leg. Pulmonary services signed off on the patient on 04/19/2021. During the course of patient's hospitalization, patient experienced progressive decline in respiratory status, ultimately was BiPAP dependent, tolerating 15 L high flow nasal cannula for short periods of time with an oxygen saturation around 85%. Prognosis was discussed with patient from pulmonary services and it was felt the patient was appropriate candidate for hospice. Patient continued on breathing treatments, IV steroids, IV Lasix, oral antibiotics and discharged to [facility] for DVT PE, and patient continued to decline with her status. The decision was made today for patient to transition to [facility] hospice services. Review of Systems Constitutional: Reports fatigue, Reports poor appetite, Reports weakness Cardiovascular: Reports chest pain, Reports dyspnea on exertion, Reports shortness of breath Respiratory: Reports cough, Reports dyspnea, Reports home oxygen, Reports pain on inspiration Neurological: Reports weakness Psychiatric: Reports anxiety Past Medical History Past Medical History: COPD Additional Past Medical History / Comment(s): pulmonary fibrosis, oxygen dependent at home on 2 L nasal cannula History of Any Multi-Drug Resistant Organisms: None Reported Past Surgical History: No Surgical Hx Reported Past Psychological History: No Psychological Hx Reported Smoking Status: Current some day smoker Past Alcohol Use History: None Reported Past Drug Use History: None Reported Medications and Allergies Home Medications Medication Instructions Recorded Confirmed Type Albuterol Sulfate [Ventolin HFA] 2 puff INHALATION RT-Q4H PRN 04/13/21 04/27/21 History Benzonatate [Benzonatate Perle] 200 mg PO TID 04/13/21 04/27/21 History Budesonide/Formoterol Fumarate 2 puff INHALATION RT-BID 04/13/21 04/27/21 History [Symbicort 160-4.5 Mcg Inhaler] Ipratropium-Albuterol Nebulize 3 ml INHALATION RT-QID 04/13/21 04/27/21 History [Duoneb 0.5 mg-3 mg/3 ml Soln] Pirfenidone [Esbriet] 801 mg PO BID 04/13/21 04/27/21 History Promethaz-Cod 6.25-10 mg/5 ml 5 ml PO Q6H PRN 04/13/21 04/27/21 History [Phenergan with Codeine] methylPREDNISolone [Medrol Dose See Taper PO DIRECTED 04/13/21 04/27/21 History Pack] Apixaban [Eliquis Starter Pack See Taper PO DIRECTED 04/27/21 04/27/21 History (for VTE)] Allergies Allergy/AdvReac Type Severity Reaction Status Date / Time No Known Allergies Allergy Verified 04/13/21 13:48 Physical Exam Vitals: Vital Signs Pulse Pulse Resp 04/28/21 04:00 86 22 04/27/21 23:40 95 26 H 08/12/21 20:00 89 20 04/27/21 17:06 88 04/27/21 16:47 86 04/27/21 16:00 76 22 Intake and Output 04/27/21 04/28/21 04/28/21 22:59 06:59 14:59 Intake Total 6.69 3.978 30.940 Balance 6.69 3.978 30.940 Intake: Intake, IV Titration 6.69 3.978 30.940 Amount Morphine Sulfate (100 mg/ 6.69 3.978 30.940 2 ml) 100 mg In Sodium Chloride 0.9% 100 ml @ 1 MG/HR 1.02 mls/hr IV . Q24H [facility] Rx#:[id number] Oral 0 Other: # Voids 0 Weight 97 kg PHYSICAL EXAMINATION: GENERAL: The patient is alert and oriented x3, respiratory rate 14, no signs of acute distress HEENT: Pupils are round and equally reacting to light. EOMI. No scleral icterus. No conjunctival pallor. Normocephalic, atraumatic. No pharyngeal erythema. No thyromegaly. CARDIOVASCULAR: S1 and S2 present. No murmurs, rubs, or gallops. PULMONARY: Coarse rhonchi throughout bilateral lung hussein, diminished bases, right anterior ABDOMEN: Soft, nontender, nondistended, normoactive bowel sounds. No palpable organomegaly. MUSCULOSKELETAL: No joint swelling or deformity. EXTREMITIES: No cyanosis, clubbing, or pedal edema. NEUROLOGICAL: Gross neurological examination did not reveal any focal deficits. SKIN: No rashes. Assessment and Plan Assessment: Assessment and Plan Acute on chronic hypoxic respiratory failure is due to multifactorial etiology. Patient is BiPAP dependent Acute PE involving the right lower lobe segmental and subsegmental branches. On eliquis. Right popliteal and femoral DVT - on Eliquis Acute COPD exacerbation patient treated with IV Solu Medrol and breathing treatments. Possible pneumonia with underlying pulmonary fibrosis on oral antibiotics. Pulmonary fibrosis, progressing Severe pulmonary hypertension with severe RV dilation and severe TR. Treated with IV lasix Chronic hypoxic respiratory failure secondary to COPD and pulmonary fibrosis Lactic acidosis due to hypoxia Previous history of smoking GI prophylaxis - Protonix DVT prophylaxis: eliquis No code Patient was transitioned to inpatient hospice [facility] due to end-stage lung disease multifactorial, COPD exacerbation, pneumonia, pulmonary fibrosis, progressive, acute PE, chronic hypoxic respiratory failure secondary to COPD and pulmonary fibrosis. Patient also had a component of severe pulmonary hypertension with severe RV dilation and severe TR. Patient maintains on a morphine drip, titrated for increasing respiratory rate. Currently patient's respiratory rate is 16, maintained on a 14 L high flow nasal cannula. Sinus rhythm in the 80s. Plan today is to decrease the nasal cannula, and increase morphine drip as needed for patient's comfort level. Medications the patient will remain on today include Tylenol suppository, DuoNeb, atropine, Rubinol, Dilaudid, Ativan, morphine drip, Zofran, scopolamine patch. All other medications have been discontinued at this time. Patient has family at the bedside. Continue with supportive care. Time with Patient: Greater than 30
[2021-04-28] MEDS ORDERED: DRY MOUTH SPRAY 44.3 SPRAY/44.3 ML SPRAY MUCOUS MEM PRN (17:14)
[2021-04-28] MEDS ORDERED: BENZOCAINE SPRAY 1 CAN MUCOUS MEM PRN (17:56)
[2021-04-28] MEDS: MORPHINE SULFATE (100 MG/2 ML) 100 MG in SODIUM CHLORIDE 0.9% 100 ML IV SCH (19:01)
[2021-04-28] MEDS: HYDROmorphone 1 MG/ML 1 ML SYRINGE IVP PRN (19:31)
[2021-04-29] MEDS: MORPHINE SULFATE (100 MG/2 ML) 100 MG in SODIUM CHLORIDE 0.9% 100 ML IV SCH (00:15)
[2021-04-29] MEDS: HYDROmorphone 1 MG/ML 1 ML SYRINGE IVP PRN (00:34)
--- NOTE | 2021-04-29 09:14 | P.PN ---
Subjective 04/29/2021 60-year-old with advanced pulmonary fibrosis was admitted for acute respiratory failure on the nasal cannula oxygen now was on BiPAP for long time without any significant improvement after aggressive medical care and no improvement discussed with the family and patient was subsequently made hospice Patient remains on hospice patient is comfortable at this time. There are episodes where patient is totally fletcher and severely hypoxic although patient is comfortable on IV morphine and high flow nasal cannula oxygen at this time. PHYSICAL EXAMINATION: GENERAL: Patient is comfortable on IV morphine drip CARDIOVASCULAR: S1 and S2 present. PULMONARY: Bibasilar crackles, slow and shallow breathing ABDOMEN: Soft, nontender, nondistended, normoactive bowel sounds. No palpable organomegaly. NEUROLOGICAL: He morphine drip and comfortable SKIN: No rashes. Assessment and Plan Hospice: Comfort care: Patient is presently on morphine drip presently comfortable is on high flow Oxygen for comfort purposes Acute on chronic hypoxic respiratory failure is due to advanced pulmonary fibrosis. Patient is BiPAP dependent Embolism Right popliteal and femoral DVT COPD Severe pulmonary hypertension Chronic hypoxic respiratory failure secondary to COPD and pulmonary fibrosis Objective - Vital Signs Vital signs: Vital Signs Temp Pulse 83 04/29/21 08:00 Resp 12 04/29/21 08:00 BP Pulse Ox 92 L 04/29/21 08:00 Intake & Output 04/28/21 04/29/21 04/29/21 18:59 06:59 18:59 Intake Total 30.940 62.271 Output Total 1050 750 Balance -1019.060 -687.729 Weight 98.5 kg Intake: Intake, IV Titration 30.940 62.271 Amount Morphine Sulfate (100 mg/ 30.940 62.271 2 ml) 100 mg In Sodium Chloride 0.9% 100 ml @ 1 MG/HR 1.02 mls/hr IV . Q24H [facility] Rx#:[id number] Oral 0 0 Output: Urine 1050 750
[2021-04-29 12:06] VITALS: PULSE 59; RESP 14
--- NOTE | 2021-04-30 11:43 | P.DS ---
Providers Date of admission: 04/27/21 15:17 Expected date of discharge: 04/29/21 Attending physician: Elver Rey Primary care physician: Stated None Hospital Course: Patient yesterday evening. Patient has pulmonary fibrosis and is under hospice care. Please refer to my progress note from yesterday for further details of hospitalization and other medical problems Plan - Discharge Summary New Discharge Prescriptions: No Action Promethaz-Cod 6.25-10 mg/5 ml [Phenergan with Codeine] 5 ml PO Q6H PRN PRN Reason: Cough Albuterol Sulfate [Ventolin HFA] 2 puff INHALATION RT-Q4H PRN PRN Reason: Shortness Of Breath methylPREDNISolone [Medrol Dose Pack] See Taper PO DIRECTED Pirfenidone [Esbriet] 801 mg PO BID Budesonide/Formoterol Fumarate [Symbicort 160-4.5 Mcg Inhaler] 2 puff INHALATION RT-BID Ipratropium-Albuterol Nebulize [Duoneb 0.5 mg-3 mg/3 ml Soln] 3 ml INHALATION RT-QID Benzonatate [Benzonatate Perle] 200 mg PO TID Apixaban [Eliquis Starter Pack (for VTE)] See Taper PO DIRECTED Discharge Medication List Albuterol Sulfate [Ventolin HFA] 2 puff INHALATION RT-Q4H PRN 04/13/21 [History] Benzonatate [Benzonatate Perle] 200 mg PO TID 04/13/21 [History] Budesonide/Formoterol Fumarate [Symbicort 160-4.5 Mcg Inhaler] 2 puff INHALATION RT-BID 04/13/21 [History] Ipratropium-Albuterol Nebulize [Duoneb 0.5 mg-3 mg/3 ml Soln] 3 ml INHALATION RT-QID 04/13/21 [History] Pirfenidone [Esbriet] 801 mg PO BID 04/13/21 [History] Promethaz-Cod 6.25-10 mg/5 ml [Phenergan with Codeine] 5 ml PO Q6H PRN 04/13/21 [History] methylPREDNISolone [Medrol Dose Pack] See Taper PO DIRECTED 04/13/21 [History] Apixaban [Eliquis Starter Pack (for VTE)] See Taper PO DIRECTED 04/27/21 [History] Discharge Disposition: - Preliminary Cause of Preliminary Cause of : Pulmonary fibrosis
== END 2021-04-29 18:09 | disposition expired | DRG 951 ==
LOC: 3SCARD 15:17
PROVIDERS: ADMIT Internal Medicine; ATTEND Internal Medicine
PROC: 5A0945A Assistance with Respiratory Ventilation, 24-96 Consecutive Hours, High Flow/Velocity Cannula (ICD-10-PCS; principal; 2021-04-27)
DX: Z51.5 Encounter for palliative care (principal); J96.21 Acute and chronic respiratory failure with hypoxia; I26.99 Other pulmonary embolism without acute cor pulmonale; J44.1 Chronic obstructive pulmonary disease with (acute) exacerbation; I82.431 Acute embolism and thrombosis of right popliteal vein; I82.411 Acute embolism and thrombosis of right femoral vein; E87.2 Acidosis; J84.10 Pulmonary fibrosis, unspecified; Z66 Do not resuscitate; I27.20 Pulmonary hypertension, unspecified; I07.1 Rheumatic tricuspid insufficiency; Z99.81 Dependence on supplemental oxygen; Z79.51 Long term (current) use of inhaled steroids; F17.200 Nicotine dependence, unspecified, uncomplicated